=== PATIENT | female | born 1995 | race Caucasian/White ===

== ENCOUNTER 2022-02-04 15:13 | Outpatient (CLI) | payer BC, SELFPAY | END 2022-02-04 15:14 | disposition home or self-care (01) | LOC: NFLDREF 15:15 | PROVIDERS: PCP Family Medicine; Visit Provider Family Medicine | DX: Z01.419 Encounter for gynecological examination (general) (routine) without abnormal findings (principal) | CPT/HCPCS: 88174 ==

== ENCOUNTER 2022-02-14 17:14 | Outpatient (CLI) | payer BC, SELFPAY ==
--- OUTSIDE RECORDS SUMMARY | 2022-02-14 17:18 | XMS_ITS | Clinical Summary ---
:1995 Author Organization [facility] Address [address] [place] [address] Care Team Providers Name Role Phone Unavailable Primary Care Provider Unavailable Source Comments Patient records contain information from all sites at [facility]. For routine questions regarding patient records, call [phone] during business hours, M-F 8:00 AM - 5:00 PM Central Time. Record requests for emergency care only can be directed to [phone] at any time.[facility] Social History Tobacco Use Types Packs/Day Years Used Date Smoking Tobacco: Never Sex Assigned at Date Recorded Not on file Last Filed Vital Signs Vital Sign Reading Time Taken Comments Blood Pressure 118/66 01/02/2016 11:36 AM CDT Pulse 80 01/02/2016 11:36 AM CDT Temperature - - Respiratory Rate - - Oxygen Saturation - - Inhaled Oxygen Concentration - - Weight 51.8 kg (114 lb 3.2 oz) 01/25/2015 10:59 AM CDT Height - - Body Mass Index - - Plan of Treatment Health Maintenance Due Date Last Done Comments Cervical Cancer Screening 1997 Chlamydia and Gonorrhea 1997 Screening HIV Screening 1997 Hepatitis C Screening 1997 DTaP,Tdap,and Td Vaccines 09/11/2019 09/10/2009, 02/05/2003 , (7 - Td or Tdap) 12/27/1999, Additional history exists COVID-19 Vaccine (3 - 03/04/2021 10/02/2020, 09/11/2020 Booster for Pfizer series) Depression Screening 06/26/2021 (Annual PHQ-2) Influenza Vaccine (#1) 2022 Hepatitis B Vaccines Completed 06/09/1998, 1997, 1997 HPV Vaccines Completed 09/20/2011, 06/09/2011, 02/10/2010 Pneumococcal vaccine (0-64 Aged Out No lo nger eligible years) based on patient 's age to complete this topic Insurance Payer Benefit Plan Subscriber ID Effective Dates Phone Address Type / Group KRISTYN [facility] [id number] 2017-Stefany [phone] [address] [address] PPO [facility] [address] [place] [address]
--- OUTSIDE RECORDS SUMMARY | 2022-02-14 17:18 | XMS_ITS | Encounter Summary ---
:1995 Author Organization [facility] Address [address] [place] [address] Care Team Providers Name Role Phone Unavailable Primary Care Provider Unavailable Encounter Details Date Type Department Care Team Description 01/02/2016 Hospital Encounter HX [facility] Gama Lee APRN, C.N.P., ANTONIO, R.N. Social History Tobacco Use Types Packs/Day Years Used Date Smoking Tobacco: Never Assessed Sex Assigned at Date Recorded Not on file documented as of this encounter Last Filed Vital Signs Vital Sign Reading Time Taken Comments Blood Pressure 118/66 01/02/2016 11:36 AM CDT Pulse 80 01/02/2016 11:36 AM CDT Temperature - - Respiratory Rate - - Oxygen Saturation - - Inhaled Oxygen Concentration - - Weight - - Height - - Body Mass Index - - documented in this encounter Progress Notes Gama Lee APRN, C.N.P. - 01/02/2016 11:10 AM CDT [id number] CHIEF COMPLAINT/REASON FOR VISIT Possible bladder infection. HISTORY OF PRESENT ILLNESS Zuhair is an 20-year-old female who comes in today with a possible bladder infection. She is noticing some blood in her urine even with a tampon in. She is having withdrawal bleeding from her oral contraceptives at the current time. She is having some burning, frequency and urgency when she urinates.Her symptoms started 2 to 3 days ago. She has not used any yeaj-edj-btvryex medications for relief of her symptoms. She has been trying to drink a lot a water and cranberry juice. She has had no new sexual partners. Denies any vaginal itching. She denies any abdominal pain or any back pain. She does take her control pills exactly as prescribed. She has not missed any days. PAST MEDICAL/SURGICAL HISTORY She is healthy. MEDICATIONS Oral contraceptives. Zyrtec. ALLERGIES Environmental. PHYSICAL EXAMINATION VITAL SIGNS: Blood pressure 118/66, pulse 80, respirations 16, temperature 37.8 degrees centigrade, respirations 16. GENERAL: Zuhair is a well-developed, well-nourished, well-hydrated female, who appears to be in no acute distress. RESPIRATORY: Lungs clear to auscultation in all logan without wheezing or rales. Respirations appear to be easy and nonlabored. CARDIAC: Heart regular rate and rhythm without murmur, gallop, or rub. GI: Abdomen is soft, round, and nontender. Bowel sounds present and active in all 4 quadrants. Thereis no suprapubic tenderness and no CVA tenderness bilaterally. DIAGNOSTIC TESTS: Included a urinalysis which was positive for a urinary tract infection. IMPRESSION/REPORT/PLAN Urinary tract infection. PLAN: Cipro 500 mg twice a day for 5 days. Risks, benefits, and side effects were reviewed with her.She thinks 1 time when she took PhosLo she had quite a bit of nausea with some vomiting. I advised 8to 10 glasses of water during the days of treatment as well and if she is not feeling significantly better within the next few days, she should come back in for further evaluation and management unlessshe develops worsening symptoms in the meantime. She verbalized understanding and agreement of plan and will follow up as needed. Gama Lee APRN, C.N.P./pos Electronically Signed By: GAMA LEE ASSISTANT STORE MANAGER TRAINEE On: 01/04/2016 02:55 PM Source: [facility] MHSDOLBEYNONRADSYS Document Id: [id number] documented in this encounter Procedure Notes Lance Moore CLizethMSid - 01/02/2016 11:27 AM CDT Urine Dipstick Urine Dipstick Entered On: 01/02/2016 11:29 CDT Performed On: 01/02/2016 11:27 CDT by BAYLIS, LANCE E Urine Dipstick UA Color POC : Yellow UA Appear POC : Cloudy UA Leuk POC : 2+ Moderate UA Nitrite POC : Negative UA Urobilinogen POC : 0.2 mg/dl UA Protein POC : 1+ (30 mg/dl) UA pH POC : 8.0 UA Blood POC : 2+ MODERATE UA Spec Grav POC : 1.015 UA Ketones POC : Negative UA Bili POC : Negative UA Glucose POC : Negative Test Strip Lot # : [id number] Test Strip Expiration Date : 12/23/2016 LANCE MOORE - 01/02/2016 11:27 CDT [facility] [employer] Document Id: [id number] CDT!16 documented in this encounter Miscellaneous Notes Miscellaneous - Gama Lee APRN, C.N.P. - 01/02/2016 11:43 AM CDT Ambulatory Patient Summary Express Care - [facility] [address] [place], [place] [id number] Visit Information Name: ZUHAIR SIN [facility] Number: [id number] Current Date: 01/02/2016 11:43:46 Physicians Attending Provider: GAMA LEE CNP Primary Care Provider: PCP, ADAN ZUHAIR SIN has been given the following list of follow-up instructions, medication list,and patient education materials: Follow-up Instructions Your Medications Here is a list of your medications. It is important to take your medications as directed. Use a pillbox or chart to help remind you to take your medications. Please let your doctor or nurse know if you have problems taking your medications. Medication/Strength How to Take Indications/Special Instructions/Comments/Notes for Patient Medication Changes/Routing cetirizine (ZyrTEC) Oral, once a day PRN allergies ciprofloxacin (Cipro 500 mg oral tablet) 1 Tablet(s), Oral, two times a day x 5 day(s) bladder [facility] [address] [place] [address] norgestimate-ethinyl estradiol (Mononessa) 1 Tablet(s), Oral, once a day Stop Taking the Following Medications: Medication list as of 01-02-16 11:43 Attention: If you have any medications at home that are not on this list, DO NOT take them until youcontact your provider for clarification. Give a copy of your medication list to your primary care provider. Update your medication list any time medications or doses are changed and carry your medication list at all times in case of emergency. Electronically Signed By: GAMA LEE CNP Signed On:02-JAN-2016 11:43:42 Your Allergies & Intolerances Substance Reaction Symptoms Category Comments No Known Medication Allergies Drug Other Environmental congestion, coughing, sneezing Environment Your Problem List Problem Status Onset Comments No Problems found Your Upcoming Appointments Date Time Location Provider No Appointments found Attention: Contact your local Clinic if further appointment detail needed. Consider Using Patient Online Services Patient Online Services is a secure online and Mobile application that lets you: ?? View lab and test results ?? View portions of your medical record including clinical notes, immunizations and discharge summaries ?? Request an appointment or medication refill ?? Review your appointment schedule ?? Send secure messages to your care team Its easy to create an account if you dont have one. Go to [email or web address] and click on Create Your Account. Then, follow the directions to complete the online form. Youll be asked for your [facility] number which you can find at the top of this document. Your Goals/Additional instructions: Source: [facility] POWERCHART Document Id: [id number] Miscellaneous - Gama Lee APRN, C.N.P. - 01/02/2016 11:43 AM CDT Ambulatory Discharge Medication List Express Care - [address] [id number] Visit Information Name: ZUHAIR SIN [facility] Number: [id number] Visit Date: 01/02/2016 11:43:46 Attending Provider: GAMA LEE CNP Primary Care Provider: PCP, ZUHAIR WELLS MICHELLE has been given the following list of medications: Your Medications It is important to take your medications as directed. Use a pill box or chart to help remind you to take your medications. Please let your doctor or nurse know if you have problems taking your medications. Medication/Strength How to Take Indications/Special Instructions/Comments/Notes for Patient Medication Changes/Routing cetirizine (ZyrTEC) Oral, once a day PRN allergies ciprofloxacin (Cipro 500 mg oral tablet) 1 Tablet(s), Oral, two times a day x 5 day(s) bladder [facility] [address] [place], [place] [id number] norgestimate-ethinyl estradiol (Mononessa) 1 Tablet(s), Oral, once a day Stop Taking the Following Medications: Medication list as of 01-02-16 11:43 Attention: If you have any medications at home that are not on this list, DO NOT take them until youcontact your provider for clarification. Give a copy of your medication list to your primary care provider. Update your medication list any time medications or doses are changed and carry your medication list at all times in case of emergency. Electronically Signed By: GAMA LEE CNP Signed On:02-JAN-2016 11:43:42 Additional Information: Yes - . Source: [facility] POWERCHART Document Id: [id number] Miscellaneous - Lance Moore, C.M.A. - 01/02/2016 11:36 AM CDT Adult System Consultant Intake/History Adult System Consultant Intake/History Entered On: 01/02/2016 11:40 CDT Performed On: 01/02/2016 11:36 CDT by LANCE MOORE Intake Chief Complaint : peed blood, even with a tampon in; pain when she urinates, frequecy, urgency Onset of Symptoms : 2-3 days ago Ambulatory Intake Additional Information : no OTC meds today Temperature Core : 37.8 DegC(Converted to: 100.0 DegF) Peripheral Pulse Rate : 80 /min Systolic Blood Pressure : 118 mmHg Diastolic Blood Pressure : 66 mmHg NIBP Mean : 83 mmHg BP Location : Left upper extremity Blood Pressure Cuff Size : Regular SpO2 : 98 % Oxygen Therapy : Room air LANCE MOORE - 01/02/2016 11:36 CDT General Info Information Given By : Patient Preferred Communication Mode : Verbal Languages : Macanese Is Patient Female and 13-50 no hysterectomy : Yes Status : Patient denies Are you ? : No LANCE MOORE - 01/02/2016 11:36 CDT Subjective Pain Symptoms : Yes LANCE MOORE - 01/02/2016 11:36 CDT Pain Scale Pain Scale Verbal 0-10 : Open LANCE MOORE - 01/02/2016 11:36 CDT Pain Pain Assessment Grid Pain 1 Location : Bladder LANCE MOORE - 01/02/2016 11:36 CDT Dependent Habits Exposure to Tobacco Smoke : Lives with someone who smokes Smoking Status : Never smoker Tobacco 2A : No Tobacco Use/Currently Using : No Tobacco Use/Last 30 Days : No Tobacco Use/Last 12 months : No LANCE MOORE - 01/02/2016 11:36 CDT Source: [facility] Document Id: [id number] CDT!36 documented in this encounter Plan of Treatment Not on filedocumented as of this encounter Procedures Procedure Name Priority Date/Time Associated Diagnosis Comme nts BACTERIAL CULTURE, Routine 01/02/2016 11:29 AM Re sults for this AEROBIC, URINE CDT procedure are in the results section. POCT KETONE, URINE Routine 01/02/2016 11:27 AM Re sults for this CDT procedure are i n the results section. documented in this encounter Results (ABNORMAL) Bacterial Culture, Aerobic, Urine (01/02/2016 11:29 AM CDT) Analysis Performed At Patho logist Time Signature Bacterial EC <=2 POWERCHART Culture, (POSITIVE) Aerobic, Urine HXPre EC POWERCHART Comment: >100,000 cfu/mL Escherichia col i HXFinal EC POWERCHART Comment: >100,000 cfu/mL Escherichia col i Specimen (Source) Anatomical Collection Method Collection Time Re ceived Time Location / / Volume Laterality Urine, First 01/02/2016 11:29 Voided AM CDT Organism Antibiotic Method Susceptibility Escherichia coli Ampicillin SUSCEPTIBILITY, SAE <=2: Suscep tible (MCG/ML) Escherichia coli Ampicillin + Sulbactam SUSCEPTIBILITY, SAE <=2: Susceptible (MCG/ML) Escherichia coli Aztreonam SUSCEPTIBILITY, SAE <=1: Suscep tible (MCG/ML) Escherichia coli Cefazolin SUSCEPTIBILITY, SAE <=4: Suscep tible (MCG/ML) Escherichia coli Cefepime SUSCEPTIBILITY, SAE <=1: Suscep tible (MCG/ML) Escherichia coli Ceftazidime SUSCEPTIBILITY, SAE <=1: Suscep tible (MCG/ML) Escherichia coli Ceftriaxone SUSCEPTIBILITY, SAE <=1: Suscep tible (MCG/ML) Escherichia coli ESBL Confirmation Test SUSCEPTIBILITY, SAE Neg: Negative (MCG/ML) Escherichia coli Ertapenem SUSCEPTIBILITY, SAE <=0.5: Susc eptible (MCG/ML) Escherichia coli Gentamicin SUSCEPTIBILITY, SAE <=1: Suscep tible (MCG/ML) Escherichia coli Levofloxacin SUSCEPTIBILITY, SAE <=0.12: Vania ceptible (MCG/ML) Escherichia coli Meropenem SUSCEPTIBILITY, SAE <=0.25: Vania ceptible (MCG/ML) Escherichia coli Nitrofurantoin SUSCEPTIBILITY, SAE <=16: Susce ptible (MCG/ML) Escherichia coli Piperacillin + Tazobactam SUSCEPTIBILITY, SAE < =4: Susceptible (MCG/ML) Escherichia coli Trimethoprim + SUSCEPTIBILITY, SAE <=20: Susce ptible Sulfamethoxazole (MCG/ML) Escherichia coli Tobramycin SUSCEPTIBILITY, SAE <=1: Suscep tible (MCG/ML) Gama Lee APRN, C.N.P., [place], R.N. LAB MICROBIOLOGY - GENERAL ORDERABLES Performing Organization Address City/State/ZIP Code Phon e Number POWERCHART Ketone, Urine, POCT (01/02/2016 11:27 AM CDT) [facility] Method Time Signature Color Yellow POWERCHART Appearance Cloudy POWERCHART Leukocytes, 2+ Moderate POWERCHART POCT, U Nitrites, Negative POWERCHART POCT, U Urobilinogen, 0.2 mg/dl POWERCHART POCT, Urine Protein, POCT, 1+ (30 POWERCHART U mg/dl) pH, POCT, 8.0 5.0 - 9.0 POWERCHART Urine Blood, POCT, U 2+ MODERATE POWERCHART Specific 1.015 1.000 - POWERCHART Naylor, POCT, 1.030 U Ketone, POCT, Negative POWERCHART U Bilirubin, Negative POWERCHART POCT, U Glucose, POCT, Negative POWERCHART U Specimen (Source) Anatomical Collection Method Collection Time Re ceived Time Location / / Volume Laterality 01/02/2016 11:27 AM CDT Gama Lee APRN, C.N.P., [place], R.N. LAB POCT ORDERABL ES-MANUAL Performing Organization Address City/State/ZIP Code Phon e Number POWERCHART documented in this encounter Visit Diagnoses Not on filedocumented in this encounter
--- OUTSIDE RECORDS SUMMARY | 2022-02-14 17:18 | XMS_ITS | Encounter Summary ---
:1995 Author Organization [facility] Address [address] [place] [address] Care Team Providers Name Role Phone Unavailable Primary Care Provider Unavailable Encounter Details Date Type Department Care Team Description 10/22/2020 Orders Only [facility] PCP [facility] Candido Delacruz Jr., M.D. [facility] Santhosh Nelson MD [phone] (Wo rk) Social History Tobacco Use Types Packs/Day Years Used Date Smoking Tobacco: Never Sex Assigned at Date Recorded Not on file documented as of this encounter Plan of Treatment Not on filedocumented as of this encounter Visit Diagnoses Not on filedocumented in this encounter
--- OUTSIDE RECORDS SUMMARY | 2022-02-14 17:18 | XMS_ITS | Encounter Summary ---
:1995 Author Organization [facility] Address [address] [place] [address] Care Team Providers Name Role Phone Unavailable Primary Care Provider Unavailable Encounter Details Date Type Department Care Team Description 04/16/2020 Clinical Communication Division of [facility], , RLizethNLizeth [place], in [phone] [place], [place] (Work) [address] [place] [address] Social History Tobacco Use Types Packs/Day Years Used Date Smoking Tobacco: Never Sex Assigned at Date Recorded Not on file documented as of this encounter Plan of Treatment Not on filedocumented as of this encounter Visit Diagnoses Not on filedocumented in this encounter Additional Health Concerns Infection Onset Date Last Indicated Resolved Time COVID19 Pending 04/16/2020 04/16/2020 04/16/2020 10:54 PM CDT documented as of this encounter
--- OUTSIDE RECORDS SUMMARY | 2022-02-14 17:18 | XMS_ITS | Encounter Summary ---
:1995 Author Organization [facility] Address [address] [place] [address] Care Team Providers Name Role Phone Unavailable Primary Care Provider Unavailable Reason for Visit Reason Comments COVID Inquiry Encounter Details Date Type Department Care Team Description 05/14/2020 Clinical Communication Department of Spine WILY KellyID Inquiry in [facility] [address] [place] [address] Social History Tobacco Use Types Packs/Day Years Used Date Smoking Tobacco: Never Sex Assigned at Date Recorded Not on file documented as of this encounter Miscellaneous Notes Telephone Encounter - Alejandro Walsh - 05/14/2020 9:55 AM CST Plan: Endpoint recommendation: Testing indicated, sent patient to [facility] located at [address] [place] [address]. When you arrive in the parking lot, using your camera smartphone scan the QR code on the sign and fill out the online form. If you do not have a smartphone or working camera, please ring the doorbell outside the building for service. Testing hours are M-F 9 am to 4 pm and Sat-Sun 9 am to 12:30pm. and Please avoid using public transportation per CDC recommendation. If you do not have personaltransportation please self-quarantine until a personal transportation option is available. *Reminder if sending patient for testing in [facility] or [facility], an email notification is required. OLL ACCOUNTING CLERK documented in this encounter Plan of Treatment Not on filedocumented as of this encounter Visit Diagnoses Not on filedocumented in this encounter Additional Health Concerns Infection Onset Date Last Indicated Resolved Time COVID19 Pending 05/14/2020 05/14/2020 05/14/2020 11:31 PM PAYROLL ACCOUNTING CLERK documented as of this encounter
--- OUTSIDE RECORDS SUMMARY | 2022-02-14 17:18 | XMS_ITS | Encounter Summary ---
:1995 Author Organization [facility] Address [address] [place] [address] Care Team Providers Name Role Phone Unavailable Primary Care Provider Unavailable Encounter Details Date Type Department Care Team Description 01/02/2016 Hospital Encounter HX NO MAPPING Bev Lee, COMPUTER SYSTEMS ANALYST, C.N.P., ANTONIO, R.N. Social History Tobacco Use Types Packs/Day Years Used Date Smoking Tobacco: Never Assessed Sex Assigned at Date Recorded Not on file documented as of this encounter Miscellaneous Notes Miscellaneous - Conversion, Historical Provider Ser - 01/02/2016 11:59 PM CDT Coding Summary-Paper Based CODING DATE: 01/14/2016 FINAL [facility] STATUS: * Discharged to Home or Self Care PAYOR: [employer] ADMIT DX: REASON FOR VISIT DX: FINAL DX: PRINCIPAL: R30.0 Dysuria SECONDARY: PROCEDURES DOCTOR NAME DATE NOTE: The code number assigned matches the documented diagnosis and / or procedure in the patient's chart. However, the narrative phrase printed from the coding software may appear abbreviated, or result in slightly different terminology. Coded By: RUTH ANN ESCOBAR Date Saved: 01/14/2016 08:10 am Source: [facility] Document Id: [id number] documented in this encounter Plan of Treatment Not on filedocumented as of this encounter Visit Diagnoses Not on filedocumented in this encounter
--- OUTSIDE RECORDS SUMMARY | 2022-02-14 17:18 | XMS_ITS | Encounter Summary ---
:1995 Author Organization [facility] Address [address] [place] [address] Care Team Providers Name Role Phone Unavailable Primary Care Provider Unavailable Encounter Details Date Type Department Care Team Description 12/25/2014 Hospital Encounter [facility] Crow Harris APRN, C.N.P. [address] [place] [phone] (Wo rk) Social History Tobacco Use Types Packs/Day Years Used Date Smoking Tobacco: Never Assessed Sex Assigned at Date Recorded Not on file documented as of this encounter Last Filed Vital Signs Vital Sign Reading Time Taken Comments Blood Pressure 86/46 12/25/2014 6:18 PM CDT Pulse 77 12/25/2014 6:18 PM CDT Temperature - - Respiratory Rate - - Oxygen Saturation - - Inhaled Oxygen Concentration - - Weight - - Height - - Body Mass Index - - documented in this encounter Progress Notes Brigette Harris APRN, C.N.P. - 12/25/2014 6:16 PM CDT [id number] CHIEF COMPLAINT/REASON FOR VISIT Ear pain. HISTORY OF PRESENT ILLNESS This pleasant 19-year-old female presents to clinic today with her mother who reports onset of rightear discomfort over the past 2 to 3 days. Slightly dizzy, slightly nauseous. The ear is tender with pressing on the tragus. No recent swimming. No cough, cold or rhinitis. TREATMENT: No treatment for her current symptoms. MEDICATIONS Oral contraceptive pills. ALLERGIES No known diagnosed medication allergies. SYSTEMS REVIEW No fever, no chills. No vomiting, no diarrhea. No rash. PAST MEDICAL/SURGICAL HISTORY Ear infections in childhood, none recently. SOCIAL HISTORY No recent exposure to swimming. No known injury to that right ear. VITAL SIGNS Temperature is 37.6, pulse is 77, blood pressure is 86/46, O2 sat is 97%. PHYSICAL EXAMINATION GENERAL: A pleasant 19-year-old female, no acute distress. SKIN: Generally is warm, dry and intact. Low-grade fever. 37.6 degrees Celsius. HEENT: Head is normocephalic. Eyes: Conjunctivae are clear bilaterally. Pupils are equal, reactive to light. Ears: Left tragus is not sensitive. Left canal and left tympanic membrane are intact. Right ear: Right tragus is sensitive to pressure. The canal is clear. The tympanic membrane is clear. On the central point of the tragus it is noted to be of bright pink with cream-colored pustules forming, coming to a head. No discharge is noted. Throat: [place]. LYMPH: Neck is supple. No lymphadenopathy palpated. There is some tenderness on the right postauricular node area without nodule forming. LUNGS: Clear anterior bilaterally. EXTREMITIES: Full range of motion, upper and lower extremities. MENTAL STATUS: Alert, oriented, pleasant. IMPRESSION/REPORT/PLAN Folliculitis. PLAN: Symptomatic treatment with cleansing thoroughly twice daily, topical antibiotic ointment as desires. Follow up if symptoms would persist or worsen. [facility] in the future. Patient discharged in stable condition with her mother. Mary Ellen Harris, C.N.P./pos Electronically Signed By: BRIGETTE HARRIS MOTORCYCLE RIDING INSTRUCTOR On: 12/27/2014 10:15 AM Source: [facility] MHSDOLBEYNONRADSYS Document Id: [id number] documented in this encounter Nursing Notes Brigette Harris APRN, C.N.P. - 12/25/2014 8:19 PM CDT Ambulatory Patient Education The following Patient Education Materials have been given to the patient: Patient Education Materials: Ambulatory FOLLICULITIS Ambulatory Folliculitis Folliculitis is an inflammation of the hair follicles (where the hair comes out of the skin). It is most often caused by infection with bacteria such as staph. Folliculitis usually looks like small white pimples in hairy areas of the skin. Severe cases may cause permanent hair loss and scarring. The condition is most often triggered by friction against the skin due to tight- fitting clothing. Ingrown hairs on the face of men are another cause. One type of folliculitis occurs after soaking in a hot tub when the water is contaminated with bacteria. Simple folliculitis usually clears by itself in a few days. Folliculitis that does not go away or comes back may need medical treatment. Oral and topical antibiotics may be used. Home care The following will help you care for folliculitis at home: ?? Wash the area with soap and water when you bathe, as usual. ?? Unless another medicine was prescribed, you can apply a topical antibiotic cream twice a day. Follow-up care Follow up with your doctor as advised by our staff. When to seek medical care Get prompt medical attention if any of the following occur: ?? Rash lasts longer than three days ?? Rash changes appearance or spreads ?? Abscess (boil) forms with local swelling, tenderness, or fluid drainage ?? Fever of 100.4??F (38??C) or higher, or as directed by your health care provider ?? [id number] [place] [address]. All rights reserved. This information is not intended as a substitute for professional medical care. Always follow your healthcare professional's instructions. Source: [facility] QuellanCHART Document Id: [id number] Brigette Harris APRN, C.N.P. - 12/25/2014 8:19 PM CDT Ambulatory Patient Education The following Patient Education Materials have been given to the patient: Patient Education Materials: Source: [facility] POWERCHART Document Id: [id number] documented in this encounter Miscellaneous Notes Miscellaneous - Lety Tomas C.M.A. - 12/25/2014 6:18 PM CDT Pediatric Wheel Polisher Intake/History Pediatric Wheel Polisher Intake/History Entered On: 12/25/2014 18:22 CDT Performed On: 12/25/2014 18:18 CDT by LETY TOMAS Intake Chief Complaint : Right ear ache; swollen, aches; ear aches when pt swallows; eust tube aches, and tragus. Onset of Symptoms : 2-3 days ago Temperature Core : 37.6 DegC(Converted to: 99.7 DegF) Peripheral Pulse Rate : 77 /min Systolic Blood Pressure : 86 mmHg (<LLOW) Diastolic Blood Pressure : 46 mmHg (<LLOW) NIBP Mean : 59 mmHg SpO2 : 97 % LETY TOMAS - 12/25/2014 18:19 CDT General Info Languages : Salvadorean Is Patient Female and 13-50 no hysterectomy : Yes Status : Patient denies Are you ? : No LETY TOMAS - 12/25/2014 18:19 CDT Subjective Pain Symptoms : Yes LETY TOMAS - 12/25/2014 18:19 CDT Pain Scale Pain Scale Verbal 0-10 : Open LETY TOMAS 12/25/2014 18:19 CDT Pain Pain Assessment Grid Pain 1 Location : Ear Laterality : Right LETY TOMAS - 12/25/2014 18:19 CDT Dependent Habits Tobacco Use/Currently Using : No Exposure to Tobacco Smoke : Care provider denies smoking in home Smoking Status : Never smoker LETY TOMAS - 12/25/2014 18:19 CDT Source: [facility] POWERCHART Document Id: [id number] CDT!28 documented in this encounter Plan of Treatment Not on filedocumented as of this encounter Visit Diagnoses Not on filedocumented in this encounter
--- OUTSIDE RECORDS SUMMARY | 2022-02-14 17:18 | XMS_ITS | Encounter Summary ---
:1995 Author Organization [facility] Address [address] [place] [address] Care Team Providers Name Role Phone Unavailable Primary Care Provider Unavailable Encounter Details Date Type Department Care Team Description 01/25/2015 Hospital Encounter [facility] Crow Harris APRN, C.N.P. [address] [place] [phone] (Wo rk) Social History Tobacco Use Types Packs/Day Years Used Date Smoking Tobacco: Never Assessed Sex Assigned at Date Recorded Not on file documented as of this encounter Last Filed Vital Signs Vital Sign Reading Time Taken Comments Blood Pressure - - Pulse 74 01/25/2015 10:59 AM CDT Temperature - - Respiratory Rate - - Oxygen Saturation - - Inhaled Oxygen Concentration - - Weight 51.8 kg (114 lb 3.2 oz) 01/25/2015 10:59 AM CDT Height - - Body Mass Index - - documented in this encounter Progress Notes Brigette Harris APRN, C.N.P. - 01/25/2015 10:07 AM CDT [id number] CHIEF COMPLAINT/REASON FOR VISIT Discomfort with urination. HISTORY OF PRESENT ILLNESS This pleasant 19-year-old female presents to clinic today with onset of intermittent discomfort overthe past 1 to 2 weeks with urination. Now has noted to have increased frequency, urgency with urination, as well as a stinging sensation which kay with urination. She also is having lower abdominal di scomfort intermittently at rest. Presents today for further evaluation of possible urinary tract infection. MEDICATIONS Cranberry juice and increasing water, green tea, and oral contraceptive pill. ALLERGIES No known diagnosed medication allergies. SYSTEMS REVIEW No fever. No chills. No nausea. No vomiting. No diarrhea. No back pain. No rash. PAST MEDICAL/SURGICAL HISTORY Urinary tract infection in the past. None recently. SOCIAL HISTORY Will be in the 12th grade at [employer]. IMMUNIZATIONS: Are reported as up to date. VITAL SIGNS Temperature is 37, pulse is 74, O2 sats 99%, and actual weight is 51.8 kg. PHYSICAL EXAMINATION GENERAL: Reveals a pleasant, 19-year-old female, no acute distress. SKIN: Generally is warm, dry, and intact. Afebrile at 37 degrees Celsius. HEENT: Head is normocephalic. Speech is clear and understandable. Ears are dull and intact bilaterally. Throat posteriorly is pink. ABDOMEN: Bowel sounds are present all 4 quadrants. No hepatosplenomegaly. Slight discomfort in the suprapubic region to palpation. BACK: No costovertebral angle tenderness to palpation bilaterally. EXTREMITIES: Full range of motion upper and lower extremities. No hesitation with changing positionsfrom the chair to the exam table. MENTAL STATUS: Alert, oriented. DIAGNOSTICS: Urinalysis reveals specific gravity is 1.015, pH is 7.0, protein is negative, ketones negative, bilirubin is negative, urobilinogen is 0.2 mg/dL, blood is 2+ moderate, nitrites are negative, leukocytes 3+ large, appearance is cloudy, glucose is negative. IMPRESSION/REPORT/PLAN Urinary tract infection. PLAN: Bactrim double-strength 1 tab by mouth twice daily for 3 days. Informed the patient and her mother we would call only if the culture would indicate a need for change in treatment plan. Okay to call the patient's cellphone at [phone]. Preferred pharmacy is [facility]. Continue water and cranberry juice supplementation. Follow up if symptoms would persist or worsen. [facility] to [facility] as desires in the future for minor ailments. The patient is discharged in stable condition accompanied with her mother. The patient is given written information outlining the details of today's visit.Opportunity for questions provided. Yoshi Ivory.N.P./pos Electronically Signed By: BRIGETTE HARRIS NP On: 01/26/2015 08:23 PM [facility] Document Id: [id number] documented in this encounter Procedure Notes Perla Moore C.M.A. - 01/25/2015 10:15 AM CDT Urine Dipstick Urine Dipstick Entered On: 01/25/2015 10:16 CDT Performed On: 01/25/2015 10:15 CDT by PERLA MOORE Urine Dipstick UA Color POC : Colorless UA Appear POC : Cloudy UA Leuk POC : 3+ Large UA Nitrite POC : Negative UA Urobilinogen POC : 0.2 mg/dl UA Protein POC : Negative UA pH POC : 7.0 UA Blood POC : 2+ MODERATE UA Spec Grav POC : 1.015 UA Ketones POC : Negative UA Bili POC : Negative UA Glucose POC : Negative Test Strip Lot # : [id number] Test Strip Expiration Date : 12/24/2015 PERLA MOORE - 01/25/2015 10:15 CDT Source: [facility] POWERCHART Document Id: [id number] CDT!16 documented in this encounter Nursing Notes Brigette Harris APRN, C.N.P. - 01/25/2015 11:10 AM CDT Ambulatory Patient Education The following Patient Education Materials have been given to the patient: Patient Education Materials: ED/Trauma Urinary Tract Infections in Women ED/Trauma Urinary Tract Infections in Women Urinary tract infections (UTIs) are most often caused by bacteria (germs). These bacteria enter the urinary tract. The bacteria may come from outside the body. Or they may travel from the skin outside the rectum or vagina into the urethra. Female anatomy makes it easier for bacteria from the bowel to enter a womans urinary tract, which is the most common source of UTI. This means women develop UTIs more often than men. Pain in or around the urinary tract is a common UTI symptom. But the only way to know for sure if you have a UTI for the doctor to test your urine. The two tests that may be done arethe urinalysis and urine culture. Three Types of UTIs ?? Cystitis: A bladder infection (cystitis) is the most common UTI in women. You may have urgent or frequent urination. You may also have pain, burning when you urinate, and bloody urine. ?? Urethritis: This is an inflamed urethra, which is the tube that carries urine from the bladder tooutside the body. You may have lower stomach or back pain. You may also have urgent or frequent urination. ?? Pyelonephritis: This is a kidney infection. If not treated, it can be serious and damage your kidneys. In severe cases, you may be hospitalized. You may have a fever and upper back pain. Medications to Treat a UTI Most UTIs are treated with antibiotics. These kill the bacteria. The length of time you need to takethem depends on the type of infection. It may be as short as 3 days. If you have repeated UTIs, a low-dose antibiotic may be needed for several months. Take antibiotics exactly as directed. Dont stop taking them until all of the medication is gone. If you stop taking the antibiotic too soon, the infection may not go away, and you may develop a resistance to the antibiotic. This can make it much harder to treat. Lifestyle Changes to Treat and Prevent UTIs The lifestyle changes below will help get rid of your UTI. They may also help prevent future UTIs. ?? Drink plenty of fluids. This includes water, juice, or other caffeine-free drinks. Fluids help flush bacteria out of your body. ?? Empty your bladder. Always empty your bladder when you feel the urge to urinate. And always urinate before going to sleep. Urine that stays in your bladder can lead to infection. Try to urinate before and after sex as well. ?? Practice good personal hygiene. Wipe yourself from front to back after using the toilet. This helps keep bacteria from getting into the urethra. ?? Use condoms during sex. These help prevent UTIs caused by sexually transmitted bacteria. Also, avoid using spermicides during sex. These can increase the risk of UTIs. Choose other forms of control instead. For women who tend to get UTIs after sex, a low-dose of a preventive antibiotic may beused. Be sure to discuss this option with your health care provider. ?? Follow up with your health care provider as directed. He or she may test to make sure the infection has cleared. If necessary, additional treatment may be started. ?? [id number] Anna Ugarte, [address] [place] [address]. All rights reserved. This information is not intended as a substitute for professional medical care. Always follow your healthcare professional's instructions. This document has images extracted. Please consider using [employer] for all your patient education needs. Source: [facility] Document Id: [id number] Brigette Harris APRN, C.N.P. - 01/25/2015 11:10 AM CDT Ambulatory Patient Education The following Patient Education Materials have been given to the patient: Patient Education Materials: Source: [employer] Document Id: [id number] documented in this encounter Miscellaneous Notes Miscellaneous - Perla Moore C.M.A. - 01/25/2015 10:59 AM CDT Pediatric Dish Washer Intake/History Pediatric Dish Washer Intake/History Entered On: 01/25/2015 11:02 CDT Performed On: 01/25/2015 10:59 CDT by PERLA MOORE Intake Chief Complaint : burning when she urinates, frequency, urgency Onset of Symptoms : 1-2 weeks ago Ambulatory Intake Additional Information : tried a lot of water and cranberry juice Temperature Core : 37.0 DegC(Converted to: 98.6 DegF) Peripheral Pulse Rate : 74 /min SpO2 : 99 % Actual Weight : 51.8 kg(Converted to: 114 lb 3 oz) Dosing Weight Clinic : 51.8 kg PERLA MOORE - 01/25/2015 10:59 CDT General Info Information Given By : Mother Preferred Communication Mode : Verbal Languages : Frisian Is Patient Female and 13-50 no hysterectomy : Yes Status : Patient denies Are you ? : No PERLA MOORE Aravind - 01/25/2015 10:59 CDT Subjective Pain Symptoms : Yes PERLA MOORE Aravind - 01/25/2015 10:59 CDT Pain Scale Pain Scale Verbal 0-10 : Open PERLA MOORE Aravind - 01/25/2015 10:59 CDT Pain Pain Assessment Grid Pain 1 Location : Bladder PERLA MOORE Aravind - 01/25/2015 10:59 CDT Dependent Habits Tobacco Use/Currently Using : No Exposure to Tobacco Smoke : Care provider denies smoking in home Smoking Status : Never smoker PERLA MOORE Aravind - 01/25/2015 10:59 CDT Source: [facility] JootaCHART Document Id: [id number] CDT!29 documented in this encounter Plan of Treatment Not on filedocumented as of this encounter Procedures Procedure Name Priority Date/Time Associated Diagnosis Comme nts BACTERIAL CULTURE, Routine 01/25/2015 10:19 AM Re sults for this AEROBIC, URINE CDT procedure are in the results section. POCT KETONE, URINE Routine 01/25/2015 10:15 AM Re sults for this CDT procedure are i n the results section. documented in this encounter Results Bacterial Culture, Aerobic, Urine (01/25/2015 10:19 AM CDT) [facility] Method Time Signature Bacterial POWERCHART Culture, Aerobic, Urine [facility] Mixed deja. No POWERCHART further studies unless notified. [facility] POWERCHART Microbiology laboratory [phone]. Specimen (Source) Anatomical Collection Method Collection Time Re ceived Time Location / / Volume Laterality Urine, First 01/25/2015 10:19 Voided AM CDT Brigette Harris APRN, C.N.P. LAB MICROBIOLOGY - GENERAL ORDERABLES Performing Organization Address City/State/ZIP Code Phon e Number POWERCHART Ketone, Urine, POCT (01/25/2015 10:15 AM CDT) [facility] Method Time Signature Color Colorless POWERCHART Appearance Cloudy POWERCHART Leukocytes, 3+ Large POWERCHART POCT, U Nitrites, Negative POWERCHART POCT, U Urobilinogen, 0.2 mg/dl POWERCHART POCT, Urine Protein, POCT, Negative POWERCHART U pH, POCT, 7.0 5.0 - 9.0 POWERCHART Urine Blood, POCT, U 2+ MODERATE POWERCHART Specific 1.015 1.000 - POWERCHART [place], POCT, 1.030 U Ketone, POCT, Negative POWERCHART U Bilirubin, Negative POWERCHART POCT, U Glucose, POCT, Negative POWERCHART U Specimen (Source) Anatomical Collection Method Collection Time Re ceived Time Location / / Volume Laterality 01/25/2015 10:15 AM CDT Brigette Harirs APRN, C.N.P. LAB POCT ORDERABLES-MANUAL Performing Organization Address City/State/ZIP Code Phon e Number POWERCHART documented in this encounter Visit Diagnoses Not on filedocumented in this encounter
--- OUTSIDE RECORDS SUMMARY | 2022-02-14 17:18 | XMS_ITS | Encounter Summary ---
:1995 Author Organization [facility] Address [address] [place] [address] Care Team Providers Name Role Phone Unavailable Primary Care Provider Unavailable Reason for Visit Reason Onset Date Comments Outpatient COVID-19 Testing 04/16/2020 Encounter Details Date Type Department Care Team Description 04/16/2020 External Outreach Department of Jerman Finley [facility] D.[facility]. Dx) [place] [address] [facility] [address] [place] [phone] Social History Tobacco Use Types Packs/Day Years Used Date Smoking Tobacco: Never Sex Assigned at Date Recorded Not on file documented as of this encounter Progress Notes Ynes Haines R.N. - 04/16/2020 9:03 AM CDT Encounter created for the drive-through COVID-19 testing. documented in this encounter Plan of Treatment Not on filedocumented as of this encounter Procedures Procedure Name Priority Date/Time Associated Diagnosis Comme nts SARS CORONAVIRUS-2 Routine 04/16/2020 10:52 AM Infection Upper Results for this RNA, V CDT Respiratory procedure are i n the results section. documented in this encounter Results SARS Coronavirus-2 RNA, V Symptomatic (04/16/2020 10:52 AM CDT) [facility] Method Time Signature SARS-CoV-2 Swab, 04/16/2020 MKTO Specimen Nasopharynx 10:53 PM Source CDT SARS CoV-2 Undetected Undetected 04/16/2020 SABI RNA, TMA 10:53 PM CDT Comment: SARS-CoV-2 RNA absent. This result does not rule out COVID-19 in the patient, as the sensitivity of the test depends o n the timing of the specimen collection and the quality of the specim en. Result should be correlated with patient's history and clinical presentat ion. ----ADDITIONAL INFORMATION---- This test is performed using the Aptima SARS-CoV-2 assay ([employer] which has received Emergency Use Authori zation (EUA) by the U.S. Food and Drug Administration. Fact sheets for this Emergency Use Autho rization (EUA) assay can be found at the following links: For Healthcare Providers: https://www.[employer] a.gov/media/690629/download For Patients: https://www.fda.gov/media/ 097097/download Specimen Anatomical Collection Method Collection Time Receive d Time (Source) Location / / Volume Laterality Varies 04/16/2020 10:52 04/16/2020 3:18 (Nasopharynx) AM CDT PM CDT Maria Luisa Finley APRN C.N.P., D.N.P. LAB [facility] - GENERAL ORDERABLES Performing Organization Address City/State/ZIP Code Phon e Number [facility]- [address] [place] [address] [place] [address] [address] documented in this encounter Visit Diagnoses Diagnosis Infection Upper Respiratory - Primary documented in this encounter Additional Health Concerns Infection Onset Date Last Indicated Resolved Time COVID19 Pending 04/16/2020 04/16/2020 04/16/2020 10:54 PM CDT documented as of this encounter
--- OUTSIDE RECORDS SUMMARY | 2022-02-14 17:18 | XMS_ITS | Encounter Summary ---
:1995 Author Organization [facility] Address [address] [place] [address] Care Team Providers Name Role Phone Unavailable Primary Care Provider Unavailable Reason for Visit Reason Onset Date Comments Outpatient COVID-19 Testing 05/14/2020 Encounter Details Date Type Department Care Team Description 05/14/2020 External Outreach Department of [facility] Jesus, In [facility] Medicine in [facility], Respirato ry ([place], [place] C.N.P., D.N.P. Dx) [address] [facility] [address] [place] [address] [place], [place] [phone] [address] Social History Tobacco Use Types Packs/Day Years Used Date Smoking Tobacco: Never Sex Assigned at Date Recorded Not on file documented as of this encounter Progress Notes Virgen Cano R.N. - 05/14/2020 10:04 AM CST Encounter created for the drive-through COVID-19 testing. OLOGY TECHNOLOGIST documented in this encounter Plan of Treatment Not on filedocumented as of this encounter Procedures Procedure Name Priority Date/Time Associated Diagnosis Comme nts SARS CORONAVIRUS-2 Routine 05/14/2020 11:06 AM Infection Upper Results for this RNA, V NEUROLOGY TECHNOLOGIST Respiratory procedure are i n the results section. documented in this encounter Results SARS Coronavirus-2 RNA, V Symptomatic (05/14/2020 11:06 AM NEUROLOGY TECHNOLOGIST) [facility] Method Time Signature SARS-CoV-2 Swab, 05/14/2020 MKTO Specimen Nasopharynx 11:30 PM Source NEUROLOGY TECHNOLOGIST SARS CoV-2 Undetected Undetected 05/14/2020 SABI RNA, TMA 11:30 PM NEUROLOGY TECHNOLOGIST Comment: SARS-CoV-2 RNA absent. This result does not rule out COVID-19 in the patient, as the sensitivity of the test depends o n the timing of the specimen collection and the quality of the specim en. Result should be correlated with patient's history and clinical presentat ion. ----ADDITIONAL INFORMATION---- This test is performed using the Aptima SARS-CoV-2 assay ([employer] which has received Emergency Use Authori zation (EUA) by the U.S. Food and Drug Administration. Fact sheets for this Emergency Use Autho rization (EUA) assay can be found at the following links: For Healthcare Providers: https://www.[employer] a.gov/media/025543/download For Patients: https://www.fda.gov/media/ 708593/download Specimen Anatomical Collection Method Collection Time Receive d Time (Source) Location / / Volume Laterality Varies 05/14/2020 11:06 05/14/2020 5:43 (Nasopharynx) AM NEUROLOGY TECHNOLOGIST PM NEUROLOGY TECHNOLOGIST Yoshi Sanchez APRN.NJyotsna., D.N.P. LAB MICROBIOLOGY - GENERAL ORDERABLES Performing Organization Address City/State/ZIP Code Phon e Number [facility]- [address] [place] [address] [place] [address] [address] documented in this encounter Visit Diagnoses Diagnosis Infection Upper Respiratory - Primary documented in this encounter Additional Health Concerns Infection Onset Date Last Indicated Resolved Time COVID19 Pending 05/14/2020 05/14/2020 05/14/2020 11:31 PM NEUROLOGY TECHNOLOGIST documented as of this encounter
--- OUTSIDE RECORDS SUMMARY | 2022-02-14 17:18 | XMS_ITS | Encounter Summary ---
:1995 Author Organization [facility] Address [address] [place] [address] Care Team Providers Name Role Phone Unavailable Primary Care Provider Unavailable Encounter Details Date Type Department Care Team Description 01/25/2015 Hospital Encounter HX NO MAPPING Brigette Crump, LUIS, C.N.P. [address] [place], [place] [address] (Wo rk) Social History Tobacco Use Types Packs/Day Years Used Date Smoking Tobacco: Never Assessed Sex Assigned at Date Recorded Not on file documented as of this encounter Miscellaneous Notes Miscellaneous - Conversion, Historical Provider Ser - 01/25/2015 11:59 PM CDT Coding Summary-Paper Based CODING DATE: 02/02/2015 FINAL [facility] STATUS: * Discharged to Home or Self Care PAYOR: [employer] ADMIT DX: REASON FOR VISIT DX: FINAL DX: PRINCIPAL: 788.1 Dysuria SECONDARY: PROCEDURES DOCTOR NAME DATE NOTE: The code number assigned matches the documented diagnosis and / or procedure in the patient's chart. However, the narrative phrase printed from the coding software may appear abbreviated, or result in slightly different terminology. Coded By: BLADIMIR ELI Date Saved: 02/02/2015 09:41 pm Source: [facility]om[facility] InnovationsCHART Document Id: [id number] documented in this encounter Plan of Treatment Not on filedocumented as of this encounter Visit Diagnoses Not on filedocumented in this encounter
--- OUTSIDE RECORDS SUMMARY | 2022-02-14 17:19 | XMS_ITS | Encounter Summary ---
:1995 Author Organization [facility] Address [address] [place] [address] Care Team Providers Name Role Phone No Ref-Primary, Physician Primary Care Provider [phone] Encounter Details Date Type Department Care Team Description 09/12/2020 Travel Social History Tobacco Use Types Packs/Day Years Used Date Never Assessed Sex Assigned at Date Recorded Not on file COVID-19 Exposure Response Date Recorded In the last month, have you been in contact with No / Unsure 09/12/2020 4:33 PM CDT someone who was confirmed or suspected to have Coronavirus / COVID-19? documented as of this encounter Plan of Treatment Not on filedocumented as of this encounter Visit Diagnoses Not on filedocumented in this encounter Care Teams Canvas Shop Laborer Relationship Specialty Start Date End Date No Ref-Primary, Physician PCP - General 09/12/20 documented as of this encounter
--- OUTSIDE RECORDS SUMMARY | 2022-02-14 17:19 | XMS_ITS | Encounter Summary ---
:1995 Author Organization [facility] Address [address] [place] [address]. [place] [address] Care Team Providers Name Role Phone No Ref-Primary, Physician Primary Care Provider [phone] Reason for Visit Reason Comments Urgent Care Derm Problem full body rash since mon Encounter Details Date Type Department Care Team Description 09/12/2020 Office Visit [facility] Urgent Kenyetta Sawyer Ra sh (Primary Dx) Care [place] ZAIDA Scanlon [address] [place] [address] [place] [address] (Wo rk) Social History Tobacco Use Types Packs/Day Years Used Date Never Smoker Smokeless Tobacco: Never Used Sex Assigned at Date Recorded Not on file COVID-19 Exposure Response Date Recorded In the last month, have you been in contact with No / Unsure 09/12/2020 4:33 PM CDT someone who was confirmed or suspected to have Coronavirus / COVID-19? documented as of this encounter Last Filed Vital Signs Vital Sign Reading Time Taken Comments Blood Pressure 120/84 09/12/2020 4:37 PM CDT Pulse 90 09/12/2020 4:37 PM CDT Temperature 37.1 ??C (98.7 ??F) 09/12/2020 4:37 PM CDT Respiratory Rate 16 09/12/2020 4:37 PM CDT Oxygen Saturation 100% 09/12/2020 4:37 PM CDT Inhaled Oxygen Concentration - - Weight 59 kg (130 lb) 09/12/2020 4:37 PM CDT Height 154.9 cm (5' 1) 09/12/2020 4:37 PM CDT Body Mass Index 24.56 09/12/2020 4:37 PM CDT documented in this encounter Patient Instructions Patient InstructionsKenyetta Sawyer PA-C - 09/12/2020 4:30 PM CDT Please take prednisone as prescribed. Follow up with Dermatology if symptoms not improving as anticipated. documented in this encounter Progress Notes Kenyetta Sawyer PA-C - 09/12/2020 4:30 PM CDT Assessment & Plan Rash Etiology unclear at this time. She is in no acute distress. Prednisone Rx. Hydroxyzine prescribed asneeded for itching. Keep monitoring symptoms. Follow-up if any worsening symptoms. Patient agrees with the plan. - predniSONE (DELTASONE) 20 MG tablet Dispense: 10 tablet; Refill: 0 - hydrOXYzine (VISTARIL) 25 MG capsule Dispense: 30 capsule; Refill: 0 Return in about 1 week (around 09/19/2020) for Symptoms failing to improve. Kenyetta Sawyer PA-C [facility] Mckeon is a 25 year old female who presents to clinic today for the following health issues: Chief Complaint Patient presents with ??? Urgent Care ??? Derm Problem full body rash since mon Rash Onset of rash was 3 day(s) ago. Course of illness is worsening. Severity moderate Current and Associated symptoms: itching Location of the rash: generalized. Previous history of a similar rash? No Recent exposure history: none known Denies exposure to: environmental allergens, medications, new household products, new skincare products, recent immunization and viral illness Associated symptoms include: nothing. Treatment measures tried include: otc hydrocortisone cream, benadryl, calamine lotion Received first dose of Covid vaccine yesterday. Review of Systems Constitutional, HEENT, cardiovascular, pulmonary, gi and gu systems are negative, except as otherwise noted. Objective BP 120/84 Pulse 90 Temp 98.7 ??F (37.1 ??C) (Oral) Resp 16 Ht 1.549 m (5' 1) Wt 59 kg (130 lb) SpO2 100% BMI 24.56 kg/m?? Physical Exam GENERAL: healthy, alert and no distress HENT: ear canals and TM's normal, nose and mouth without ulcers or lesions RESP: lungs clear to auscultation - no rales, rhonchi or wheezes CV: regular rate and rhythm, normal S1 S2 SKIN: Erythematous papular rash noted on arms, chest, legs, sparing her back and face. No open wounds. No tenderness to palpation. No evidence of secondary infection. documented in this encounter Plan of Treatment Not on filedocumented as of this encounter Visit Diagnoses Diagnosis Rash - Primary Rash and other nonspecific skin eruption documented in this encounter Care Teams Head Automatic Sawyer Relationship Specialty Start Date End Date No Ref-Primary, Physician PCP - General 09/12/20 documented as of this encounter
--- OUTSIDE RECORDS SUMMARY | 2022-02-14 17:19 | XMS_ITS | Clinical Summary ---
:1995 Author Organization [facility] Address [address] [place] [address] Care Team Providers Name Role Phone No Ref-Primary, Physician Primary Care Provider [phone] Allergies No known active allergies Medications Medication Sig Dispensed Refills Start Date End Date Status hydrOXYzine (VISTARIL) Take 1 capsule 30 capsule 0 09/12/2020 Active 25 MG (25 mg) by mouth capsuleIndications: 3 times daily as Rash needed for itching Active Problems No known active problems Social History Tobacco Use Types Packs/Day Years [...] Mass Index 24.56 09/12/2020 4:37 PM CDT Plan of Treatment Health Maintenance Due Date Last Done Comments ADVANCE CARE PLANNING 1997 ANNUAL REVIEW OF HM ORDERS 1997 CHLAMYDIA SCREENING 1997 PREVENTIVE CARE VISIT 1997 COVID-19 Vaccine (#1) 1997 DTAP/TDAP/TD IMMUNIZATION 2008 02/05/2003, 12/27/1999 , (6 - Tdap) 06/09/1998, Additional history exists HIV SCREENING 2012 HEPATITIS C SCREENING 2015 PAP 2018 PHQ-2 (once per calendar 06/26/2021 year) INFLUENZA VACCINE (#1) 2022 HEPATITIS B IMMUNIZATION Completed 06/09/1998, 1997, 1997 IPV IMMUNIZATION Completed 02/05/2003, 06/09/1998, 1997, Additional history exists HPV IMMUNIZATION Completed 09/20/2011, 06/09/2011, 02/10/2010 MENINGITIS IMMUNIZATION Aged Out No longe r eligible based on patient 's age to complete this topic Pneumococcal Vaccine: Aged Out No longer eligible Pediatrics (0 to 5 Years) based on patient's age and At-Risk Patients (6 to to co mplete this topic 64 Years) Insurance Payer Benefit Plan / Subscriber ID Effective Dates Phone Addre ss Type Group BCBS BCBS OF [place] [id number] 2020-Stefany [phone] [address] [address] Indemnity t 0 [place] [address] Care Teams Director Of Manufacturing Relationship Specialty Start Date End Date No Ref-Primary, Physician PCP - General 09/12/20
[2022-02-14 17:59] LABS: Albumin* 4.9 g/dL (3.3-5.0); Chloride* 101 mmol/L (96-114)
[2022-02-14 18:00] LABS: D Dimer Quantitative* < 0.27 ug/ml (0.00-0.50); Potassium* 4.1 mmol/L (3.6-5.1); Sodium* 139 mmol/L (135-149)
[2022-02-14 18:02] LABS: Aspartate Amino Transferase* 13 U/L (12-35); Bilirubin Total* 0.4 mg/dL (0.1-1.5); Carbon Dioxide* 24 mmol/L (20-32); Creatinine* 0.8 mg/dL (0.5-1.5); Estimated Glomerular Filt Rate 105 ml/min; Total Protein* 8.2 g/dL (6.0-8.3)
[2022-02-14 18:03] LABS: Alanine Aminotransferase* 11 U/L (4-35); Alkaline Phosphatase* 83 U/L (40-150); Blood Urea Nitrogen* 17 mg/dL (5-24); Calcium* 9.4 mg/dL (8.4-10.6); Glucose* 101 mg/dL (60-115)
== END 2022-02-14 17:15 | disposition home or self-care (01) ==
LOC: NFLDREF 17:16
PROVIDERS: PCP Family Medicine; Visit Provider Family Medicine
DX: R07.9 Chest pain, unspecified (principal)
CPT/HCPCS: 80053; 85379

== ENCOUNTER 2022-02-15 09:00 | Outpatient (CLI) | payer BC, SELFPAY ==
--- OUTSIDE RECORDS SUMMARY | 2022-02-15 09:04 | XMS_ITS | Encounter Summary ---
:1995 Author Organization [facility] Address [address] [place] [address] Care Team Providers Name Role Phone Unavailable Primary Care Provider Unavailable Encounter Details Date Type Department Care Team Description 04/16/2020 Clinical Communication Division of [facility], , RLizethNLizeth Criders, in [phone] [place], [place] (Work) [address] [place] [address] Social History Tobacco Use Types Packs/Day Years [...]
--- OUTSIDE RECORDS SUMMARY | 2022-02-15 09:04 | XMS_ITS | Clinical Summary ---
:1995 Author Organization [facility] Address [address] [place] [address] Care Team Providers Name Role Phone No Ref-Primary, Physician Primary Care Provider Allergies No known active allergies Medications Medication [...] Addre ss Type Group BC[place] OF [place] [id number] 2020-Stefany [phone] [address] [address] Indemnity t 0 [place] [address] Care Teams Felt Pad Cutter Relationship Specialty Start Date End Date No Ref-Primary, Physician PCP - General 09/12/20
--- OUTSIDE RECORDS SUMMARY | 2022-02-15 09:04 | XMS_ITS | Encounter Summary ---
:1995 Author Organization [facility] Address [address] [place] [address] Care Team Providers Name Role Phone Unavailable Primary Care Provider Unavailable Encounter Details Date Type Department Care Team Description 01/25/2015 Hospital En[facility] Crow Harris APRN, C.N.P. [address] [place] [address] (Wo rk) Social History Tobacco [...] APRN, C.N.P. - 01/25/2015 10:07 AM CDT [id number] CHIEF COMPLAINT/REASON FOR VISIT Discomfort with urination. [...] Will be in the 12th grade at [employer] [facility]. IMMUNIZATIONS: Are reported as up to date. [...] Okay to call the patient's cellphone at [phone]. Preferred pharmacy is [facility]. Continue water and cranberry juice supplementation. Follow [...] HARRIS NP On: 01/26/2015 08:23 PM Source: [facility] Document Id: [id number] documented in this encounter Procedure Notes Perla [...] : Negative Test Strip Lot # : [id number] Test Strip Expiration Date : 12/24/2015 PERLA MOORE - 01/25/2015 10:15 CDT Source: [facility] POWERCHART Document Id: [id number] CDT!16 documented in this encounter Nursing Notes [...] necessary, additional treatment may be started. ?? [id number] Anna Ugarte, [address] [place] [address]. All rights reserved. This information is not intended as a substitute for professional medical care. Always follow your healthcare professional's instructions. This document has images extracted. Please consider using [employer] for all your patient education needs. Source: [facility] Document Id: [id number] Brigette Harris APRN, C.N.P. - 01/25/2015 11:10 AM CDT Ambulatory Patient Education The following Patient Education Materials have been given to the patient: Patient Education Materials: Source: [employer] Document Id: [id number] documented in this encounter Miscellaneous Notes Miscellaneous - Perla Moore C.M.A. - 01/25/2015 10:59 AM CDT Pediatric Armored Car Guard Intake/History Pediatric Armored Car Guard Intake/History Entered On: 01/25/2015 11:02 CDT Performed [...] Preferred Communication Mode : Verbal Languages : Kazakh Is Patient Female and 13-50 no hysterectomy [...] MOORE Aravind - 01/25/2015 10:59 CDT Source: [facility] [employer]CHART Document Id: [id number] CDT!29 documented in this encounter Plan of [...] Culture, Aerobic, Urine (01/25/2015 10:19 AM CDT) [facility] Method Time Signature Bacterial POWERCHART Culture, Aerobic, Urine [facility] Mixed deja. No POWERCHART further studies unless notified. [facility] POWERCHART Microbiology laboratory [phone]. Specimen (Source) Anatomical Collection Method Collection Time Re ceived Time Location / / Volume Laterality Urine, First 01/25/2015 10:19 Voided AM CDT Brigette Harris APRN, C.N.P. LAB MICROBIOLOGY - GENERAL ORDERABLES Performing Organization Address City/State/ZIP Code Phon e Number POWERCHART Ketone, Urine, POCT (01/25/2015 10:15 AM CDT) [facility] Method Time Signature Color Colorless POWERCHART Appearance Cloudy POWERCHART Leukocytes, 3+ Large POWERCHART POCT, U Nitrites, Negative POWERCHART POCT, U Urobilinogen, 0.2 mg/dl POWERCHART POCT, Urine Protein, POCT, Negative POWERCHART U pH, POCT, 7.0 5.0 - 9.0 POWERCHART Urine Blood, POCT, U 2+ MODERATE POWERCHART Specific 1.015 1.000 - POWERCHART [place], POCT, 1.030 U Ketone, POCT, Negative POWERCHART U Bilirubin, Negative POWERCHART POCT, U Glucose, POCT, Negative POWERCHART U Specimen (Source) Anatomical Collection Method Collection Time Re ceived Time Location / / Volume Laterality 01/25/2015 10:15 AM CDT Brigette Harris APRN, C.N.P. LAB POCT ORDERABLES-MANUAL Performing Organization Address City/State/ZIP Code Phon e Number POWERCHART documented in this encounter Visit Diagnoses Not on filedocumented in this encounter
--- OUTSIDE RECORDS SUMMARY | 2022-02-15 09:04 | XMS_ITS | Encounter Summary ---
:1995 Author Organization [facility] Address [address] [place] [address] Care Team Providers Name Role Phone No Ref-Primary, Physician Primary Care Provider [phone] Encounter Details Date Type Department Care [...] on filedocumented in this encounter Care Teams Negotiator Sales Relationship Specialty Start Date End Date No Ref-Primary, Physician PCP - General 09/12/20 documented as of this encounter
--- OUTSIDE RECORDS SUMMARY | 2022-02-15 09:04 | XMS_ITS | Encounter Summary ---
:1995 Author Organization [facility] Address [address] [place] [address] Care Team Providers Name Role Phone Unavailable Primary Care Provider Unavailable Reason for Visit Reason Onset Date Comments Outpatient COVID-19 Testing 05/14/2020 Encounter Details Date Type Department Care Team Description 05/14/2020 External Outreach Department of [facility] Jesus, In [facility] Medicine in [facility], Respirato ry ([place], [place] C.N.P., D.N.P. Dx) [address] [facility] [address] [place] [address] [place], [place] [phone] [address] Social History Tobacco Use Types Packs/Day Years Used Date Smoking Tobacco: Never Sex Assigned at Date Recorded Not on file documented as of this encounter Progress Notes Virgen Cano R.N. - 05/14/2020 10:04 AM CST Encounter created for the drive-through COVID-19 testing. LUTION AGENT documented in this encounter Plan of Treatment Not on filedocumented as of this encounter Procedures Procedure Name Priority Date/Time Associated Diagnosis Comme nts SARS CORONAVIRUS-2 Routine 05/14/2020 11:06 AM Infection Upper Results for this RNA, V RESOLUTION AGENT Respiratory procedure are i n the results section. documented in this encounter Results SARS Coronavirus-2 RNA, V Symptomatic (05/14/2020 11:06 AM RESOLUTION AGENT) [facility] Method Time Signature SARS-CoV-2 Swab, 05/14/2020 MKTO Specimen Nasopharynx 11:30 PM Source RESOLUTION AGENT SARS CoV-2 Undetected Undetected 05/14/2020 SABI RNA, TMA 11:30 PM RESOLUTION AGENT Comment: SARS-CoV-2 RNA absent. This result does not rule out COVID-19 in the patient, as the sensitivity of the test depends o n the timing of the specimen collection and the quality of the specim en. Result should be correlated with patient's history and clinical presentat ion. ----ADDITIONAL INFORMATION---- This test is performed using the Aptima SARS-CoV-2 assay ([employer] which has received Emergency Use Authori zation (EUA) by the U.S. Food and Drug Administration. Fact sheets for this Emergency Use Autho rization (EUA) assay can be found at the following links: For Healthcare Providers: https://www.[employer] a.gov/media/672903/download For Patients: https://www.fda.gov/media/ 143780/download Specimen Anatomical Collection Method Collection Time Receive d Time (Source) Location / / Volume Laterality Varies 05/14/2020 11:06 05/14/2020 5:43 (Nasopharynx) AM RESOLUTION AGENT PM RESOLUTION AGENT Yoshi Sanchez APRN.NJyotsna., D.N.P. LAB MICROBIOLOGY - GENERAL ORDERABLES Performing Organization Address City/State/ZIP Code Phon e Number [facility] [address] [place] [address] [place] [address] [address] documented in this encounter Visit Diagnoses Diagnosis Infection Upper Respiratory - Primary documented in this encounter Additional Health Concerns Infection Onset Date Last Indicated Resolved Time COVID19 Pending 05/14/2020 05/14/2020 05/14/2020 11:31 PM RESOLUTION AGENT documented as of this encounter
--- OUTSIDE RECORDS SUMMARY | 2022-02-15 09:04 | XMS_ITS | Encounter Summary ---
:1995 Author Organization [facility] Address [address] [place] [address]. [place] [address] Care Team Providers Name Role Phone No Ref-Primary, Physician Primary Care Provider Reason for Visit Reason Comments Urgent Care Derm Problem full body rash since mon Encounter Details Date Type Department Care Team Description 09/12/2020 Office Visit [facility] Urgent Kenyetta Sawyer Ra sh (Primary Dx) Care [place] ZAIDA Scanlon [address] [place] [address] [place] [address] (Wo rk) Social History Tobacco [...] Symptoms failing to improve. Kenyetta Sawyer PA-C [facility] PHILIP Mckeon is a 25 [...] eruption documented in this encounter Care Teams Pairer Odds Relationship Specialty Start Date End Date No Ref-Primary, Physician PCP - General 09/12/20 documented as of this encounter
--- OUTSIDE RECORDS SUMMARY | 2022-02-15 09:04 | XMS_ITS | Encounter Summary ---
:1995 Author Organization [facility] Address [address] [place] [address] Care Team Providers Name Role Phone Unavailable Primary Care Provider Unavailable Encounter Details Date Type Department Care Team Description 10/22/2020 Orders Only [facility] PCP [facility] Candido Delacruz Jr., M.D. [facility] [place] [phone] (Wo rk) Social History Tobacco Use Types Packs/Day Years Used Date Smoking Tobacco: Never Sex Assigned at Date Recorded Not on file documented as of this encounter Plan of Treatment Not on filedocumented as of this encounter Visit Diagnoses Not on filedocumented in this encounter
--- OUTSIDE RECORDS SUMMARY | 2022-02-15 09:04 | XMS_ITS | Encounter Summary ---
:1995 Author Organization [facility] Address [address] [place] [address] Care Team Providers Name Role Phone Unavailable Primary Care Provider Unavailable Encounter Details Date Type Department Care Team Description 12/25/2014 Hospital Encounter [facility] Crow Harris APRN, C.N.P. [address] [place] [phone] (Wo rk) Social History Tobacco Use Types [...] APRN, C.N.P. - 12/25/2014 6:16 PM CDT [id number] CHIEF COMPLAINT/REASON FOR VISIT Ear pain. HISTORY [...] a head. No discharge is noted. Throat: [place]. LYMPH: Neck is supple. No lymphadenopathy palpated. [...] Harris, C.N.P./pos Electronically Signed By: BRIGETTE HARRIS ENGINEERING TECHNICAL ANALYST On: 12/27/2014 10:15 AM Source: [facility] MHSDOLBEYNONRADSYS Document Id: [id number] documented in this encounter Nursing Notes Brigette [...] directed by your health care provider ?? [phone] [place] [address]. All rights reserved. This information is not intended as a substitute for professional medical care. Always follow your healthcare professional's instructions. Source: [facility] SymformCHART Document Id: [id number] Brigette Harris APRN, C.N.P. - 12/25/2014 8:19 PM CDT Ambulatory Patient Education The following Patient Education Materials have been given to the patient: Patient Education Materials: Source: [facility] POWERCHART Document Id: [id number] documented in this encounter Miscellaneous Notes Miscellaneous - Lety Tomas C.M.A. - 12/25/2014 6:18 PM CDT Pediatric Ice Cream Maker Intake/History Pediatric Ice Cream Maker Intake/History Entered On: 12/25/2014 18:22 CDT Performed [...] 12/25/2014 18:19 CDT General Info Languages : Djiboutian Is Patient Female and 13-50 no hysterectomy [...] LETY TOMAS - 12/25/2014 18:19 CDT Source: [facility] POWERCHART Document Id: [id number] CDT!28 documented in this encounter Plan of Treatment Not on filedocumented as of this encounter Visit Diagnoses Not on filedocumented in this encounter
--- OUTSIDE RECORDS SUMMARY | 2022-02-15 09:04 | XMS_ITS | Encounter Summary ---
:1995 Author Organization [facility] Address [address] [place] [address] Care Team Providers Name Role Phone Unavailable Primary Care Provider Unavailable Encounter Details Date Type Department Care Team Description 01/25/2015 Hospital Encounter HX NO MAPPING Brigette Crump, LUIS, C.N.P. [address] [place], [place] [phone] (Wo rk) Social History Tobacco Use Types Packs/Day Years Used Date Smoking Tobacco: Never Assessed Sex Assigned at Date Recorded Not on file documented as of this encounter Miscellaneous Notes Miscellaneous - Conversion, Historical Provider Ser - 01/25/2015 11:59 PM CDT Coding Summary-Paper Based CODING DATE: 02/02/2015 FINAL [facility] STATUS: * Discharged to Home or Self [...] ELI Date Saved: 02/02/2015 09:41 pm Source: [facility] NETWORK[facility]SpireCHART Document Id: [id number] documented in this encounter Plan of Treatment Not on filedocumented as of this encounter Visit Diagnoses Not on filedocumented in this encounter
--- OUTSIDE RECORDS SUMMARY | 2022-02-15 09:04 | XMS_ITS | Encounter Summary ---
:1995 Author Organization [facility] Address [address] [place] [address] Care Team Providers Name Role Phone Unavailable Primary Care Provider Unavailable Encounter Details Date Type Department Care Team Description 01/02/2016 Hospital Encounter HX NO MAPPING Bev Lee, COMMERCIAL SALES DIRECTOR, C.N.P., ANTONIO, R.N. Social History Tobacco Use Types Packs/Day Years Used Date Smoking Tobacco: Never Assessed Sex Assigned at Date Recorded Not on file documented as of this encounter Miscellaneous Notes Miscellaneous - Conversion, Historical Provider Ser - 01/02/2016 11:59 PM CDT Coding Summary-Paper Based CODING DATE: 01/14/2016 FINAL [facility] STATUS: * Discharged to Home or Self [...] ESCOBAR Date Saved: 01/14/2016 08:10 am [facility] Document Id: [id number] documented in this encounter Plan of Treatment Not on filedocumented as of this encounter Visit Diagnoses Not on filedocumented in this encounter
--- OUTSIDE RECORDS SUMMARY | 2022-02-15 09:04 | XMS_ITS | Clinical Summary ---
:1995 Author Organization [facility] Address [address] [place] [address] Care Team Providers Name Role Phone Unavailable Primary Care Provider Unavailable Source Comments Patient records contain information from all sites at [facility]. For routine questions regarding patient records, call [phone] during business hours, M-F 8:00 AM - 5:00 PM Central Time. Record requests for emergency care only can be directed to [phone] at any time.[facility] Social History Tobacco Use Types Packs/Day [...] Phone Address Type / Group KRISTYN ESQUEDA [facility] [id number] [address] [phone] [address] [address] PPO [facility] [address] [place] [address]
--- OUTSIDE RECORDS SUMMARY | 2022-02-15 09:04 | XMS_ITS | Encounter Summary ---
:1995 Author Organization [facility] Address [address] [place] [address] Care Team Providers Name Role Phone Unavailable Primary Care Provider Unavailable Encounter Details Date Type Department Care Team Description 01/02/[address] [facility] Gama Lee APRN, C.N.P., ANTONIO, [...] APRN, C.N.P. - 01/02/2016 11:10 AM CDT [id number] CHIEF COMPLAINT/REASON FOR VISIT Possible bladder infection. [...] days ago. She has not used any gxmr-vts-pmojwxr medications for relief of her symptoms. She [...] APRN, C.N.P./pos Electronically Signed By: GAMA LEE SIDE HEMMER On: 01/04/2016 02:55 PM Source: [facility] MHSDOLBEYNONRADSYS Document Id: [id number] documented in this encounter Procedure Notes Lance [...] : Negative Test Strip Lot # : [id number] Test Strip Expiration Date : 12/23/2016 LANCE MOORE - 01/02/2016 11:27 CDT [facility] Document Id: [id number] CDT!16 documented in this encounter Miscellaneous Notes Miscellaneous - Gama Lee APRN, C.N.P. - 01/02/2016 11:43 AM CDT Ambulatory Patient Summary Express Care - [facility] [address] [place], [place] [phone] Visit Information Name: ZUHAIR SIN [facility] Number: [id number] Current Date: 01/02/2016 11:43:46 Physicians [...] x 5 day(s) bladder [facility] [address] [place] [address] norgestimate-ethinyl estradiol (Mononessa) 1 Tablet(s), Oral, once [...] if you dont have one. Go to [email or web address] and click on Create Your Account. Then, follow the directions to complete the online form. Youll be asked for your [facility] number which you can find at the top of this document. Your Goals/Additional instructions: Source: [facility] POWERCHART Document Id: [id number] Miscellaneous - Gama Lee APRN, C.N.P. - 01/02/2016 11:43 AM CDT Ambulatory Discharge Medication List Express Care - [address] [phone] Visit Information Name: ZUHAIR SIN [facility] Number: [id number] Visit Date: 01/02/2016 11:43:46 Attending [...] x 5 day(s) bladder [facility] [address] [place], [place] [phone] norgestimate-ethinyl estradiol (Mononessa) 1 Tablet(s), Oral, once [...] 11:43:42 Additional Information: Yes - . Source: [facility] POWERCHART Document Id: [id number] Miscellaneous - Lance Moore, C.M.A. - 01/02/2016 11:36 AM CDT Adult New Car Sales Manager Intake/History Adult New Car Sales Manager Intake/History Entered On: 01/02/2016 11:40 CDT Performed [...] Preferred Communication Mode : Verbal Languages : Dominican Is Patient Female and 13-50 no hysterectomy [...] LANCE MOORE - 01/02/2016 11:36 CDT Source: [employer] Document Id: [id number] CDT!36 documented in this encounter Plan of [...] Suscep tible (MCG/ML) Escherichia coli Cefepime SUSCEPTIBILITY, SEA <=1: Suscep tible (MCG/ML) Escherichia coli Ceftazidime [...] ptible Sulfamethoxazole (MCG/ML) Escherichia coli Tobramycin SUSCEPTIBILITY, ASE <=1: Suscep tible (MCG/ML) Gama Lee APRN, C.N.P., [place], R.N. LAB MICROBIOLOGY - GENERAL ORDERABLES Performing Organization Address City/State/ZIP Code Phon e Number POWERCHART Ketone, Urine, POCT (01/02/2016 11:27 AM CDT) [facility] Method Time Signature Color Yellow POWERCHART Appearance Cloudy POWERCHART Leukocytes, 2+ Moderate POWERCHART POCT, U Nitrites, Negative POWERCHART POCT, U Urobilinogen, 0.2 mg/dl POWERCHART POCT, Urine Protein, POCT, 1+ (30 POWERCHART U mg/dl) pH, POCT, 8.0 5.0 - 9.0 POWERCHART Urine Blood, POCT, U 2+ MODERATE POWERCHART Specific 1.015 1.000 - POWERCHART [place], POCT, 1.030 U Ketone, POCT, Negative POWERCHART [...]
--- OUTSIDE RECORDS SUMMARY | 2022-02-15 09:04 | XMS_ITS | Encounter Summary ---
:1995 Author Organization [facility] Address [address] [place] [address] Care Team Providers Name Role Phone Unavailable Primary Care Provider Unavailable Reason for Visit Reason Comments COVID Inquiry Encounter Details Date Type Department Care Team Description 05/14/2020 Clinical Communication Department of Spine WILY KellyID Inquiry in [facility] [address] [place] [address] Social History Tobacco Use Types Packs/Day Years Used Date Smoking Tobacco: Never Sex Assigned at Date Recorded Not on file documented as of this encounter Miscellaneous Notes Telephone Encounter - Alejandro Walsh - 05/14/2020 9:55 AM CST Plan: Endpoint recommendation: Testing indicated, sent patient to [facility] located at [address] [place] [address]. When you arrive in the parking lot, [...] sending patient for testing in T or [facility], an email notification is required. BALL HAND SEWER documented in this encounter Plan of Treatment Not on filedocumented as of this encounter Visit Diagnoses Not on filedocumented in this encounter Additional Health Concerns Infection Onset Date Last Indicated Resolved Time COVID19 Pending 05/14/2020 05/14/2020 05/14/2020 11:31 PM BASEBALL HAND SEWER documented as of this encounter
--- OUTSIDE RECORDS SUMMARY | 2022-02-15 09:04 | XMS_ITS | Encounter Summary ---
:1995 Author Organization [facility] Address [address] [place] [address] Care Team Providers Name Role Phone Unavailable Primary Care Provider Unavailable Reason for Visit Reason Onset Date Comments Outpatient COVID-19 Testing 04/16/2020 Encounter Details Date Type Department Care Team Description 04/16/2020 External Outreach Department of Jerman Finley [facility] ([facility], C.N.P., D.N.P. Dx) [place] [address] [facility] [address] [place] [phone] Social History Tobacco Use Types Packs/Day Years [...] RNA, V Symptomatic (04/16/2020 10:52 AM CDT) [facility] Method Time Signature SARS-CoV-2 Swab, 04/16/2020 MKTO [...] is performed using the Aptima SARS-CoV-2 assay ([employer] which has received Emergency Use Authori zation (EUA) by the U.S. Food and Drug Administration. Fact sheets for this Emergency Use Autho rization (EUA) assay can be found at the following links: For Healthcare Providers: https://www.[employer] a.gov/media/248258/download For Patients: https://www.fda.gov/media/ 586336/download Specimen Anatomical Collection Method Collection Time Receive d Time (Source) Location / / Volume Laterality Varies 04/16/2020 10:52 04/16/2020 3:18 (Nasopharynx) AM CDT PM CDT Maria Luisa Finley APRN C.N.P., D.N.P. LAB [facility] OLOGY - GENERAL ORDERABLES Performing Organization Address City/State/ZIP Code Phon e Number [facility]- [address] [place] [address] [place] [address] [address] documented in this encounter Visit Diagnoses Diagnosis Infection Upper Respiratory - Primary documented in this encounter Additional Health Concerns Infection Onset Date Last Indicated Resolved Time COVID19 Pending 04/16/2020 04/16/2020 04/16/2020 10:54 PM CDT documented as of this encounter
--- NOTE | 2022-02-15 14:00 | CRLHL7_ITS ---
For Patients: As a result of the Century Cures Act, medical imaging exams and procedure reports are released immediately into your electronic medical record. You may view this report before your referring provider. If you have questions, please contact your health care provider. INDICATION: Pain in thoracic spine, abnormal hilar contour on chest x-ray. CT CHEST WITH CONTRAST TECHNIQUE: Multidetector CT imaging was performed through the chest following intravenous contrast administration using 75 mL Isovue 370. Coronal and sagittal reconstructions were generated. COMPARISON: None. FINDINGS: Lungs and airways: No confluent infiltrates, suspicious nodules, or masses. Central airways are patent. Pleura and pleural spaces: No pleural effusions or pneumothorax. Heart and mediastinum: Normal heart size. No significant pericardial effusion. Unremarkable pulmonary norberto. Soft tissue mass in the anterior mediastinum centered to the right of midline, measuring approximately 8.9 x 3.6 x 7.3 centimeters. This mass has mildly lobulated margins, is of soft tissue density with relatively homogeneous density, and shows no definite calcifications. It appears separate from the thyroid. Vascular structures: Normal caliber thoracic aorta. Chest wall and axillae: No mass or axillary lymphadenopathy. Osseous structures: Normal for age. Upper abdomen: Unremarkable. IMPRESSION: Nonspecific 8.9 x 3.6 x 7.3 centimeter anterior mediastinal mass as detailed above. Differential considerations include lymphoma, teratoma or germ cell tumor, thymoma, and other possibilities. DELMA VALADEZ MD [employer] Dictated by Erwin Valadez MD @ 02/15/2022 3:35:10 PM Please note that all CT scans at this facility use dose modulation, iterative reconstruction, and/or weight-based dosing when appropriate to reduce radiation dose to as low as reasonably achievable. Dictated by: Erwin Valadez MD @ 02/15/2022 15:37:53 (Electronically Signed)
== END 2022-02-15 09:01 | disposition home or self-care (01) ==
PROVIDERS: PCP Family Medicine; Visit Provider Family Medicine
DX: R07.89 Other chest pain (principal); R22.2 Localized swelling, mass and lump, trunk; M54.6 Pain in thoracic spine
CPT/HCPCS: 71260; Q9967

== ENCOUNTER 2022-03-24 15:30 | Outpatient (CLI) | payer BC, SELFPAY ==
--- OUTSIDE RECORDS SUMMARY | 2022-03-24 11:49 | XMS_ITS | Clinical Summary ---
:1995 Author Organization [facility] [place] [address] Care Team Providers Name Role Phone Unknown, Doctor Primary Care Provider Unavailable Allergies No known active allergies Medications Medication Sig Dispensed Refills Start Date End Date Status ANTIPYRINE-BENZOCAINE 5 drops to qs 0 11/08/2006 Active 5.4 %-1.4 % EAR affected ear up DROPSIndications: Acute to three times serous otitis media daily as needed for pain escitalopram oxalate Take 20 mg by 0 02/26/2021 Active (LEXAPRO) 20 mg tablet mouth once daily. spironolactone TAKE 1 TABLET BY 0 03/27/2021 Active (ALDACTONE) 100 mg MOUTH EVERY DAY tablet WITH WATER Active Problems Not on file Encounters Date Type Specialty Care Team Description 02/07/2022 Lab Requisition Unknown, Doctor from Last 3 Months Immunizations Name Administration Dates Next Due DTaP 02/05/2003, 12/27/1999, 06/09/1998, 08/25, 1997 HIB-HepB (Comvax) 06/09/1998, 1997, 1997 Inactivated Polio Vaccine 02/05/2003, 06/09/1998, 1997 , 1997 MMR 02/05/2003, 07/08/1998 Varicella Vaccine 07/08/1998 Family History Medical History Relation Name Comments Good Health Father Good Health Mother Relation Name Status Comments Father Mother Social History Tobacco Use Types Packs/Day Years Used Date Passive Smoke Exposure - Never Smoker Smokeless Tobacco: Never Used Comments: Mom smokes outside Alcohol Use Standard Drinks/Week Comments Not Asked 0 (1 standard drink = 0.6 oz pure alcoho l) Sex Assigned at Date Recorded Not on file Obstetrics History Last Filed Vital Signs Vital Sign Reading Time Taken Comments Blood Pressure 123/75 04/19/2021 9:49 AM CDT Pulse 78 04/19/2021 9:49 AM CDT Temperature 36.5 ??C (97.7 ??F) 04/19/2021 9:49 AM CDT Respiratory Rate 14 04/19/2021 9:49 AM CDT Oxygen Saturation 98% 04/19/2021 9:49 AM CDT Inhaled Oxygen Concentration - - Weight 59 kg (130 lb) 04/19/2021 9:49 AM CDT Height 132.1 cm (4' 4) 11/08/2006 9:00 AM CDT Body Mass Index - - Plan of Treatment Health Maintenance Due Date Last Done Comments HPV series for age 9-26 (1 - 2-dose 2008 series) Tdap 2008 Depression screening for age 12+ 2009 Chlamydia for age 16-24 2013 BMI (ht and wt on same day) for age 18+ 2015 Hepatitis C screening for age 18-79 2015 Tetanus booster 2017 COVID-19 vaccine series (3 - Booster for 03/04/2021 021, 09/11/2020 Pfizer series) Influenza for age 9-49 02/24/2022 Pap test for age 21-65 02/04/2025 02/04/2022 Procedures Procedure Name Priority Date/Time Associated Diagnosis Comme nts LAB TRACKING EVENT Routine 02/04/2022 3:03 PM CDT HEALTH POLICY ANALYST THIN PREP PAP Routine 02/04/2022 3:03 PM Resu lts for this SCREEN IMAGED CDT procedure are in the results section. from Last 3 Months Results LAB TRACKING EVENT (02/04/2022 3:03 PM CDT) Specimen Anatomical Collection Method Collection Time Receive d Time (Source) Location / / Volume Laterality Other (Other) Client Collect / 02/04/2022 3:03 PM 01/24 4:20 Unknown CDT PM CDT Doctor Unknown LAB BILL ONLY Performing Organization Address City/State/ZIP Code Phon e Number [id number] [place] [address] LABORATORY-CENTRAL 2000 LABORATORY HEALTH POLICY ANALYST THIN PREP PAP SCREEN IMAGED (02/04/2022 3:03 PM CDT) Component Value Ref Test Analysis Performed At [facility] gist Range Method Time Signature Case Report Gynecologic Cytology Report ? Case: [id number] ? 02/20/2022 [facility] Authorizing Provider: ??Unkn own, Doctor ?Collected: ? 02/04/2022 1503 ? 3:20 PM HEAL TH Ordering Location: ? [facility] CENTRAL LAB ?Received: ?02/07/2022 1750 ? CDT [place] BORATORY-C First Screen: ? Jassi Gamino ? ENTRAL Specimen: ?HEALTH POLICY ANALYST ThinPrep Vial Screening, Cervical/Vaginal ? LABORATORY INTERPRETATI NEGATIVE FOR (none) 02/20/2022 [facility] Briana ctronically ON/RESULT INTRAEPITHELIAL 3:20 PM HEALTH sign ed by LESION OR CDT LABORATORY-C Jassi Gamino on MALIGNANCY (NIL) ENTRAL 01/25 at LABORATORY 3:20 PM SPECIMEN Satisfactory for evaluation 02/20/2022 [facility] ADEQUACY Endocervical component present 3:20 PM HEALTH CDT LABORATORY-C ENTRAL LABORATORY HPV REQUEST HPV not requested 02/20/2022 [facility] 3:20 PM HEALTH CDT LABORATORY-C ENTRAL LABORATORY Date of LMP 02/20/2022 [facility] 3:20 PM HEALTH CDT LABORATORY-C ENTRAL LABORATORY Comment: unknown, mirena IUD Last Pap Date 02/20/2022 3:20 PM CDT [facility] LABORATORY-CENTRAL LABORATORY Comment: unknown Abnormal Pap or No 02/20/2022 3:20 [facility] [place] Bx in last 5 PM CDT LABORATORY-C ENTRAL years LABORATORY Menstrual Status Hormonally 02/20/2022 3:20 [facility] Suppressed PM CDT LABORATORY-CENTRAL LABORATORY Additional 02/20/2022 3:20 [facility] Information PM CDT LABORATORY-CENTRAL LABORATORY Comment: Interpreted at [facility], Central Laboratory - [address], [place] [address] Automated Review Successful 02/20/2022 3:20 PM CDT [facility] LABORATORY-CENTRAL L ABORATORY Comment: Specimen processed successfully by automated surgical technology instructor device, ThinPrep Imaging System, [employer] Note The pap test is a 02/20/2022 3:20 PM ID [facility] screening technique, not CDT LABOR ATORY-CENTRAL LABORATORY a diagnostic procedure. It is used primarily to screen for squamous cancers and precursor lesions. Published studies have shown that it is subject to both false negative and false positive results. The pap test should not be used as the sole means to diagnose or exclude pre-malignant and malignant lesions. Specimen Anatomical Collection Method Collection Time Receive d Time (Source) Location / / Volume Laterality Other 02/04/2022 3:03 PM 2 5:50 (Cervical/Vagina CDT PM CDT l) Doctor Unknown PATHOLOGY/CYTOLOGY Performing Organization Address City/State/ZIP Code Phon e Number [employer] [address] [place] [address] LABORATORY-CENTRAL 2000 LABORATORY from Last 3 Months Insurance Payer Benefit Plan / Subscriber ID Effective Dates Phone Addre ss Type Group [employer] OF [id number] Effective for [address] [place] [address] [employer] BL[employer] OF [id number] 2020-Present [address] [place] [address] Care Teams Equipment Mechanic Specialist Relationship Specialty Start Date End Date Unknown, Doctor PCP - General 11/08/06 .
--- OUTSIDE RECORDS SUMMARY | 2022-03-24 11:49 | XMS_ITS | Encounter Summary ---
:1995 Author Organization [facility] Address [address] [place] [address] Care Team Providers Name Role Phone Unavailable Primary Care Provider Unavailable Encounter Details Date Type Department Care Team Description 12/25/2014 Hospital Encounter [facility]X [facility] Crow Harris APRN, C.N.P. [address] [place] [phone] (Wo rk) Social History Tobacco Use Types [...] APRN, C.N.P. - 12/25/2014 6:16 PM CDT [id number] CHIEF COMPLAINT/REASON FOR VISIT Ear pain. HISTORY [...] a head. No discharge is noted. Throat: [place]. LYMPH: Neck is supple. No lymphadenopathy palpated. [...] Harris, C.N.P./pos Electronically Signed By: BRIGETTE HARRIS ASSISTANT PROFESSOR OF ART On: 12/27/2014 10:15 AM Source: [facility] MHSDOLBEYNONRADSYS Document Id: [id number] documented in this encounter Nursing Notes Brigette [...] directed by your health care provider ?? [phone] [place] [address]. All rights reserved. This information is not intended as a substitute for professional medical care. Always follow your healthcare professional's instructions. Source: [facility] [employer]CHART Document Id: [id number] Brigette Harris APRN, C.N.P. - 12/25/2014 8:19 PM CDT Ambulatory Patient Education The following Patient Education Materials have been given to the patient: Patient Education Materials: Source: [facility] POWERCHART Document Id: [id number] documented in this encounter Miscellaneous Notes Miscellaneous - Lety Tomas C.M.A. - 12/25/2014 6:18 PM CDT Pediatric Firepot Operator And Tender Intake/History Pediatric Firepot Operator And Tender Intake/History Entered On: 12/25/2014 18:22 CDT Performed [...] 12/25/2014 18:19 CDT General Info Languages : Botswanan Is Patient Female and 13-50 no hysterectomy [...] LETY TOMAS - 12/25/2014 18:19 CDT Source: [facility] POWERCHART Document Id: [id number] CDT!28 documented in this encounter Plan of Treatment Not on filedocumented as of this encounter Visit Diagnoses Not on filedocumented in this encounter
--- OUTSIDE RECORDS SUMMARY | 2022-03-24 11:49 | XMS_ITS | Encounter Summary ---
:1995 Author Organization [facility] Address [address] [place] [address] Care Team Providers Name Role Phone Unavailable Primary Care Provider Unavailable Encounter Details Date Type Department Care Team Description 04/16/2020 Clinical Communication Division of [facility], , RLizethNLizeth [place], in [phone] [place], [place] (Work) [address] [place] [address] Social History Tobacco Use Types Packs/Day Years [...]
--- OUTSIDE RECORDS SUMMARY | 2022-03-24 11:49 | XMS_ITS | Encounter Summary ---
:1995 Author Organization [facility] Address [address] [place] [address] Care Team Providers Name Role Phone Unavailable Primary Care Provider Unavailable Reason for Visit Reason Onset Date Comments Outpatient COVID-19 Testing 05/14/2020 Encounter Details Date Type Department Care Team Description 05/14/2020 External Outreach Department of [facility], [place] [facility], In [facility] Medicine in [facility], Respirato ry ([place], [place] C.N.P., D.N.P. Dx) [address] [facility] [address] [place] [address] [place], [place] [phone] [address] Social History Tobacco Use Types Packs/Day Years Used Date Smoking Tobacco: Never Sex Assigned at Date Recorded Not on file documented as of this encounter Progress Notes Virgen Cano R.N. - 05/14/2020 10:04 AM CST Encounter created for the drive-through COVID-19 testing. STANT SURVEYOR documented in this encounter Plan of Treatment Not on filedocumented as of this encounter Procedures Procedure Name Priority Date/Time Associated Diagnosis Comme nts SARS CORONAVIRUS-2 Routine 05/14/2020 11:06 AM Infection Upper Results for this RNA, V ASSISTANT SURVEYOR Respiratory procedure are i n the results section. documented in this encounter Results SARS Coronavirus-2 RNA, V Symptomatic (05/14/2020 11:06 AM ASSISTANT SURVEYOR) [facility] Method Time Signature SARS-CoV-2 Swab, 05/14/2020 MKTO Specimen Nasopharynx 11:30 PM Source ASSISTANT SURVEYOR SARS CoV-2 Undetected Undetected 05/14/2020 SABI RNA, TMA 11:30 PM ASSISTANT SURVEYOR Comment: SARS-CoV-2 RNA absent. This result does not rule out COVID-19 in the patient, as the sensitivity of the test depends o n the timing of the specimen collection and the quality of the specim en. Result should be correlated with patient's history and clinical presentat ion. ----ADDITIONAL INFORMATION---- This test is performed using the Aptima SARS-CoV-2 assay ([employer] which has received Emergency Use Authori zation (EUA) by the U.S. Food and Drug Administration. Fact sheets for this Emergency Use Autho rization (EUA) assay can be found at the following links: For Healthcare Providers: https://www.[employer] a.gov/media/389142/download For Patients: https://www.fda.gov/media/ 327975/download Specimen Anatomical Collection Method Collection Time Receive d Time (Source) Location / / Volume Laterality Varies 05/14/2020 11:06 05/14/2020 5:43 (Nasopharynx) AM ASSISTANT SURVEYOR PM ASSISTANT SURVEYOR Yoshi Sanchez APRN.NJyotsna., D.N.P. LAB MICROBIOLOGY - GENERAL ORDERABLES Performing Organization Address City/State/ZIP Code Phon e Number [facility]- [address] [place] [address] [place] [address] [address] documented in this encounter Visit Diagnoses Diagnosis Infection Upper Respiratory - Primary documented in this encounter Additional Health Concerns Infection Onset Date Last Indicated Resolved Time COVID19 Pending 05/14/2020 05/14/2020 05/14/2020 11:31 PM ASSISTANT SURVEYOR documented as of this encounter
--- OUTSIDE RECORDS SUMMARY | 2022-03-24 11:49 | XMS_ITS | Encounter Summary ---
:1995 Author Organization [facility] Address [address] [place] [address] Care Team Providers Name Role Phone Unavailable Primary Care Provider Unavailable Encounter Details Date Type Department Care Team Description 10/22/2020 Orders Only [facility] PCP [facility] Candido Delacruz Jr., M.D. [facility] [place]osh [place] [phone] (Wo rk) Social History Tobacco Use Types Packs/Day Years Used Date Smoking Tobacco: Never Sex Assigned at Date Recorded Not on file documented as of this encounter Plan of Treatment Not on filedocumented as of this encounter Visit Diagnoses Not on filedocumented in this encounter
--- OUTSIDE RECORDS SUMMARY | 2022-03-24 11:49 | XMS_ITS | Encounter Summary ---
:1995 Author Organization [facility] Address [address] [place] [address] Care Team Providers Name Role Phone Unavailable Primary Care Provider Unavailable Reason for Visit Reason Onset Date Comments Outpatient COVID-19 Testing 04/16/2020 Encounter Details Date Type Department Care Team Description 04/16/2020 External Outreach Department of [facility] ([facility], C.N.P., D.N.P. Dx) [place] [address] [facility] [address] [place] [address] [phone] Social History Tobacco Use Types Packs/Day Years [...] RNA, V Symptomatic (04/16/2020 10:52 AM CDT) [facility] Method Time Signature SARS-CoV-2 Swab, 04/16/2020 MKTO [...] is performed using the Aptima SARS-CoV-2 assay ([employer] which has received Emergency Use Authori zation (EUA) by the U.S. Food and Drug Administration. Fact sheets for this Emergency Use Autho rization (EUA) assay can be found at the following links: For Healthcare Providers: https://www.[employer] a.gov/media/978300/download For Patients: https://www.fda.gov/media/ 090371/download Specimen Anatomical Collection Method Collection Time Receive d Time (Source) Location / / Volume Laterality Varies 04/16/2020 10:52 04/16/2020 3:18 (Nasopharynx) AM CDT PM CDT Maria Luisa Finley APRN C.N.P., D.N.P. LAB [facility] OLOGY - GENERAL ORDERABLES Performing Organization Address City/State/ZIP Code Phon e Number [facility]- [address] [place] [address] [place] [address] System [address] documented in this encounter Visit Diagnoses Diagnosis Infection Upper Respiratory - Primary documented in this encounter Additional Health Concerns Infection Onset Date Last Indicated Resolved Time COVID19 Pending 04/16/2020 04/16/2020 04/16/2020 10:54 PM CDT documented as of this encounter
--- OUTSIDE RECORDS SUMMARY | 2022-03-24 11:49 | XMS_ITS | Encounter Summary ---
:1995 Author Organization [facility] Address [address] [place] [address] Care Team Providers Name Role Phone Unavailable Primary Care Provider Unavailable Encounter Details Date Type Department Care Team Description 01/25/2015 Hospital Encounter HX NO MAPPING Brigette Crump, LUIS, C.N.P. [address] [place], [place] [address] (Wo rk) Social History Tobacco Use Types Packs/Day Years Used Date Smoking Tobacco: Never Assessed Sex Assigned at Date Recorded Not on file documented as of this encounter Miscellaneous Notes Miscellaneous - Conversion, Historical Provider Ser - 01/25/2015 11:59 PM CDT Coding Summary-Paper Based CODING DATE: 02/02/2015 FINAL [facility] STATUS: * Discharged to Home or Self [...] ELI Date Saved: 02/02/2015 09:41 pm Source: [facility] Document Id: [id number] documented in this encounter Plan of Treatment Not on filedocumented as of this encounter Visit Diagnoses Not on filedocumented in this encounter
--- OUTSIDE RECORDS SUMMARY | 2022-03-24 11:49 | XMS_ITS | Encounter Summary ---
:1995 Author Organization [facility] Address [address] [place] [address] Care Team Providers Name Role Phone Unavailable Primary Care Provider Unavailable Encounter Details Date Type Department Care Team Description 01/02/2016 Hospital Encounter HX NO MAPPING Bev Lee, ASSEMBLER METAL FURNITURE, C.N.P., ANTONIO, R.N. Social History Tobacco Use Types Packs/Day Years Used Date Smoking Tobacco: Never Assessed Sex Assigned at Date Recorded Not on file documented as of this encounter Miscellaneous Notes Miscellaneous - Conversion, Historical Provider Ser - 01/02/2016 11:59 PM CDT Coding Summary-Paper Based CODING DATE: 01/14/2016 FINAL [facility] STATUS: * Discharged to Home or Self [...] ESCOBAR Date Saved: 01/14/2016 08:10 am [facility] Document Id: [id number] documented in this encounter Plan of Treatment Not on filedocumented as of this encounter Visit Diagnoses Not on filedocumented in this encounter
--- OUTSIDE RECORDS SUMMARY | 2022-03-24 11:49 | XMS_ITS | Clinical Summary ---
:1995 Author Organization [facility] Address [address] [place] [address] Care Team Providers Name Role Phone Unavailable Primary Care Provider Unavailable Source Comments Patient records contain information from all sites at [facility]. For routine questions regarding patient records, call [phone] during business hours, M-F 8:00 AM - 5:00 PM Central Time. Record requests for emergency care only can be directed to [phone] at any time.[facility] Social History Tobacco Use Types Packs/Day [...] Additional history exists COVID-19 Vaccine (3 - 11/27/2020 10/02/2020, 09/11/2020 Booster for Pfizer series) Depression Screening 06/26/2021 (Annual PHQ-2) Influenza Vaccine (#1) 2022 Hepatitis B Vaccines Completed 06/09/1998, 1995, 1995 HPV Vaccines Completed 09/20/2011, 06/09/2011, 02/10/2010 Pneumococcal vaccine (0-64 Aged Out No lo nger eligible years) based on patient 's age to complete this topic Insurance Payer Benefit Plan Subscriber ID Effective Dates Phone Address Type / Group KRISTYN ESQUEDA [facility] [id number] 2017-Stefany [phone] [address] [address] PPO [facility] [address] [place] [address]
--- OUTSIDE RECORDS SUMMARY | 2022-03-24 11:49 | XMS_ITS | Encounter Summary ---
:1995 Author Organization [facility] Address [address] [place] [address] Care Team Providers Name Role Phone Unavailable Primary Care Provider Unavailable Encounter Details Date Type Department Care Team Description 01/25/2015 Hospital Encounter [facility] Crow Harris APRN, C.N.P. [address] [place] [address] (Wo rk) Social History Tobacco [...] APRN, C.N.P. - 01/25/2015 10:07 AM CDT [id number] CHIEF COMPLAINT/REASON FOR VISIT Discomfort with urination. [...] Will be in the 12th grade at [employer] [employer]. IMMUNIZATIONS: Are reported as up to date. [...] Okay to call the patient's cellphone at [phone]. Preferred pharmacy is [facility]. Continue water and cranberry juice supplementation. Follow [...] HARRIS NP On: 01/26/2015 08:23 PM Source: [facility] Document Id: [id number] documented in this encounter Procedure Notes Perla [...] : Negative Test Strip Lot # : [id number] Test Strip Expiration Date : 12/24/2015 PERLA MOORE - 01/25/2015 10:15 CDT Source: [facility] POWERCHART Document Id: [id number] CDT!16 documented in this encounter Nursing Notes [...] necessary, additional treatment may be started. ?? [phone] Anna Ugarte, [address] [place] [address]. All rights reserved. This information is not intended as a substitute for professional medical care. Always follow your healthcare professional's instructions. This document has images extracted. Please consider using So Protect Me for all your patient education needs. Source: [facility] Document Id: [id number] Brigette Harris APRN, C.N.P. - 01/25/2015 11:10 AM CDT Ambulatory Patient Education The following Patient Education Materials have been given to the patient: Patient Education Materials: Source: [employer] Document Id: [id number] documented in this encounter Miscellaneous Notes Miscellaneous - Perla Moore C.M.A. - 01/25/2015 10:59 AM CDT Pediatric Quality Cloth Tester Intake/History Pediatric Quality Cloth Tester Intake/History Entered On: 01/25/2015 11:02 CDT Performed [...] Preferred Communication Mode : Verbal Languages : Slovak Is Patient Female and 13-50 no hysterectomy [...] MOORE Aravind - 01/25/2015 10:59 CDT Source: [facility] Mevion Medical SystemsCHART Document Id: [id number] CDT!29 documented in this encounter Plan of [...] Culture, Aerobic, Urine (01/25/2015 10:19 AM CDT) [facility] Method Time Signature Bacterial POWERCHART Culture, Aerobic, Urine [facility] Mixed deja. No POWERCHART further studies unless notified. [facility] POWERCHART Microbiology laboratory [phone]. Specimen (Source) Anatomical Collection Method Collection Time Re ceived Time Location / / Volume Laterality Urine, First 01/25/2015 10:19 Voided AM CDT Brigette Harris APRN, C.N.P. LAB MICROBIOLOGY - GENERAL ORDERABLES Performing Organization Address City/State/ZIP Code Phon e Number POWERCHART Ketone, Urine, POCT (01/25/2015 10:15 AM CDT) [facility] Method Time Signature Color Colorless POWERCHART Appearance Cloudy POWERCHART Leukocytes, 3+ Large POWERCHART POCT, U Nitrites, Negative POWERCHART POCT, U Urobilinogen, 0.2 mg/dl POWERCHART POCT, Urine Protein, POCT, Negative POWERCHART U pH, POCT, 7.0 5.0 - 9.0 POWERCHART Urine Blood, POCT, U 2+ MODERATE POWERCHART Specific 1.015 1.000 - POWERCHART [place], POCT, 1.030 U Ketone, POCT, Negative POWERCHART [...]
--- OUTSIDE RECORDS SUMMARY | 2022-03-24 11:49 | XMS_ITS | Clinical Summary ---
:1995 Author Organization [facility] Address [address] [place] [address] Care Team Providers Name Role Phone No [...] Addre ss Type Group [place] [id number] 2020-Stefany [phone] [address] [address] Indemnity t 0 [place] [address] Care Teams Youth Accommodation Support Worker Relationship Specialty Start Date End Date No Ref-Primary, Physician PCP - General 09/12/20
--- OUTSIDE RECORDS SUMMARY | 2022-03-24 11:49 | XMS_ITS | Encounter Summary ---
:1995 Author Organization [facility] Address [address] [place] [address] Care Team Providers Name Role Phone Unavailable Primary Care Provider Unavailable Encounter Details Date Type Department Care Team Description 01/02/2016 Hospital Encounter HX [facility] Gama Lee APRN, C.N.P., [...] APRN, C.N.P. - 01/02/2016 11:10 AM CDT [id number] CHIEF COMPLAINT/REASON FOR VISIT Possible bladder infection. [...] days ago. She has not used any zfwk-rru-xfakegr medications for relief of her symptoms. She [...] APRN, C.N.P./pos Electronically Signed By: GAMA LEE WILDLIFE SCIENCE PROFESSOR On: 01/04/2016 02:55 PM Source: [facility] MHSDOLBEYNONRADSYS Document Id: [id number] documented in this encounter Procedure Notes Lance [...] : Negative Test Strip Lot # : [id number] Test Strip Expiration Date : 12/23/2016 LANCE MOORE - 01/02/2016 11:27 CDT Source: [facility] Document Id: [id number] CDT!16 documented in this encounter Miscellaneous Notes Miscellaneous - Gama Lee APRN, C.N.P. - 01/02/2016 11:43 AM CDT Ambulatory Patient Summary Express Care - [facility] [address] [place], [place] [id number] Visit Information Name: ZUHAIR SIN [facility] Number: [id number] Current Date: 01/02/2016 11:43:46 Physicians [...] x 5 day(s) bladder [facility] [address] [place] [address] norgestimate-ethinyl estradiol (Mononessa) 1 Tablet(s), Oral, once [...] if you dont have one. Go to [email or web address] and click on Create Your Account. Then, follow the directions to complete the online form. Youll be asked for your [facility] number which you can find at the top of this document. Your Goals/Additional instructions: Source: [facility] POWERCHART Document Id: [id number] Miscellaneous - Gama Lee APRN, C.N.P. - 01/02/2016 11:43 AM CDT Ambulatory Discharge Medication List Express [facility] - [address] [phone] Visit Information Name: ZUHAIR SIN [facility] Number: [id number] Visit Date: 01/02/2016 11:43:46 Attending [...] x 5 day(s) bladder [facility] [address] [place], [place] [phone] norgestimate-ethinyl estradiol (Mononessa) 1 Tablet(s), Oral, once [...] 11:43:42 Additional Information: Yes - . Source: [facility] POWERCHART Document Id: [id number] Miscellaneous - Lance Moore, C.M.A. - 01/02/2016 11:36 AM CDT Adult Steno Pool Supervisor Intake/History Adult Steno Pool Supervisor Intake/History Entered On: 01/02/2016 11:40 CDT Performed [...] Preferred Communication Mode : Verbal Languages : Tajik Is Patient Female and 13-50 no hysterectomy [...] LANCE MOORE - 01/02/2016 11:36 CDT Source: [employer] Document Id: [id number] CDT!36 documented in this encounter Plan of [...] Ketone, Urine, POCT (01/02/2016 11:27 AM CDT) [facility] Method Time Signature Color Yellow POWERCHART Appearance Cloudy POWERCHART Leukocytes, 2+ Moderate POWERCHART POCT, U Nitrites, Negative POWERCHART POCT, U Urobilinogen, 0.2 mg/dl POWERCHART POCT, Urine Protein, POCT, 1+ (30 POWERCHART U mg/dl) pH, POCT, 8.0 5.0 - 9.0 POWERCHART Urine Blood, POCT, U 2+ MODERATE POWERCHART Specific 1.015 1.000 - POWERCHART [place], POCT, 1.030 U Ketone, POCT, Negative POWERCHART [...]
--- OUTSIDE RECORDS SUMMARY | 2022-03-24 11:49 | XMS_ITS | Encounter Summary ---
:1995 Author Organization [facility] Address [address] [place] [address] Care Team Providers Name Role Phone Unavailable Primary Care Provider Unavailable Reason for Visit Reason Comments COVID Inquiry Encounter Details Date Type Department Care Team Description 05/14/2020 Clinical Communication Department of Spine WILY KellyID Inquiry in [facility] [address] [place] [address] Social History Tobacco Use Types Packs/Day Years Used Date Smoking Tobacco: Never Sex Assigned at Date Recorded Not on file documented as of this encounter Miscellaneous Notes Telephone Encounter - Alejandro Walsh - 05/14/2020 9:55 AM CST Plan: Endpoint recommendation: Testing indicated, sent patient to [facility] located at [address] [place] [address]. When you arrive in the parking lot, [...] sending patient for testing in T or [facility], an email notification is required. TESTER documented in this encounter Plan of Treatment Not on filedocumented as of this encounter Visit Diagnoses Not on filedocumented in this encounter Additional Health Concerns Infection Onset Date Last Indicated Resolved Time COVID19 Pending 05/14/2020 05/14/2020 05/14/2020 11:31 PM SAND TESTER documented as of this encounter
--- OUTSIDE RECORDS SUMMARY | 2022-03-24 11:50 | XMS_ITS | Encounter Summary ---
:1995 Author Organization [facility] Address [address] [place] [address]. [place] [address] Care Team Providers Name Role Phone No Ref-Primary, Physician Primary Care Provider Reason for Visit Reason Comments Urgent Care Derm Problem full body rash since mon Encounter Details Date Type Department Care Team Description 09/12/2020 Office Visit [facility] Urgent Kenyetta Sawyer Ra sh (Primary Dx) Care Zalma ZAIDA Scanlon [address] [place] [address] [place] [address] (Wo rk) Social History Tobacco [...] Symptoms failing to improve. Kenyetta Sawyer PA-C [facility] Mckeon is a [...] eruption documented in this encounter Care Teams Family Engagement Specialist Relationship Specialty Start Date End Date No Ref-Primary, Physician PCP - General 09/12/20 documented as of this encounter
--- OUTSIDE RECORDS SUMMARY | 2022-03-24 11:50 | XMS_ITS | Encounter Summary ---
:1995 Author Organization [facility] Address [address] [place] [address] Care Team Providers Name Role Phone No Ref-Primary, Physician Primary Care Provider [phone] Encounter Details Date Type Department Care [...] on filedocumented in this encounter Care Teams Cut Press Operator Relationship Specialty Start Date End Date No Ref-Primary, Physician PCP - General 09/12/20 documented as of this encounter
[2022-03-24 16:22] LABS: HCG Quantitative* < 2.39 mIU/mL; Lactate Dehydrogenase* 491 U/L (313-618)
[2022-03-25 12:44] LABS: Alpha Fetoprotein Tumor Marker 2 ng/mL (0-9)
[2022-03-25 15:01] LABS: Beta-hCG Quant Tumor Marker <1 IU/L (0-5)
== END 2022-03-24 15:31 | disposition home or self-care (01) ==
PROVIDERS: PCP Family Medicine; Visit Provider Family Medicine
DX: J98.59 Other diseases of mediastinum, not elsewhere classified (principal)
CPT/HCPCS: 82105; 83615; 84702; 84704

== ENCOUNTER 2022-06-03 13:51 | Outpatient (CLI) | payer BC, SELFPAY ==
--- OUTSIDE RECORDS SUMMARY | 2022-06-03 13:53 | XMS_ITS | Clinical Summary ---
:1995 Author Organization [facility] [place] [address] Care Team Providers Name Role Phone ToryDee Bailey FIGUEREDO Primary Care Provider [phone] Mamie Warren RN Unavailable Allergies No known active allergies Medications Medication Sig Dispensed Refills Start Date End Date Status escitalopram Take 20 mg by 0 02/26/2021 Ac tive oxalate (LEXAPRO) mouth once 20 mg tablet daily. ANTIPYRINE-BENZOCAI 5 drops to qs 0 11/08/2006 05/05/20 2 Discontinued NE 5.4 %-1.4 % EAR affected ear 2 (*Patient states DROPSIndications: up to three no longer Acute serous otitis times daily taking/Not on media as [facility]) spironolactone TAKE 1 TABLET 0 03/27/2021 Discontinued (ALDACTONE) 100 mg BY MOUTH 2 ( *Patient states tablet EVERY DAY no longer WITH WATER taking/No t on sending fa cility list) Active Problems Problem Noted Date Mediastinal mass 05/09/2022 Overview: S/p right VATS, mediastinal mass biopsy performed by Dr. Paulino 05/09/2022 Encounters Date Type Specialty Care Team Description 05/30/2022 Anesthesia Event Adelfo Echols MD 05/30/2022 Surgery Paco Paulino INSERTION RIG HT MARCELO Robin MD DALILA CATHETER 05/30/2022 Hospital Encounter Paco Paulino MD 05/30/2022 Travel 05/26/2022 Telephone [facility] Referral ( [facility] Cancer Placement) 05/16/2022 Telephone Mamie Warren RN 05/12/2022 [facility] Referral ( Other Health Cancer classical Hodg kin lymphoma, unspe cified body region (HC )) 05/12/2022 Telephone Mamie Warren RN 05/09/2022 Anesthesia Event Olaf Schultz MD Sarpal, Rajbir S, MD 05/09/2022 Surgery Mud [place] MD bronchoscopy, r ight video assisted thoracoscopy, b iopsy mediastinal mas s 05/09/2022 - Hospital Encounter Paco Paulino 05/10/2022 MD [place] Discharge Summary - Yoshi Saez PA - 05/11/2022 12:44 PM [facility]ST [facility] SUMMARY [facility] TH[facility] [address], [address] [place] [address] 05/11/2022 Dee Spears, DO [address] / [facility] [address] Re: Linda Sin 1995 [id number] Dates of Hospitalization: 1 07/09/2021 - 05/10/[address] Spears: As you are aware, we had the pleasure of caring for your patient, Ms. Linda Sin here at [facility]. She is a pleasant 27 y.o. female who was admitted for the treatment of Mediast inal mass [J98.59]. Pre-op w /u revealed an anterior mediastinal mass concerning for classic Hodgkin's lymphoma. ??Patient had a CT scan of her chest showing a large anterior mediastinal mass protruding to the right measuring 8.9 x 3.6 x 7.3 cm. ??Patient was evaluated by pulmonary medicine where she underwent pulmonary function test and lab draws with anti- cholinesterase receptor antibody, AFP, beta-h CG, LDH which were reportedl y negative. The patient subsequently underwent a CT-guided biopsy of the anterior mediastinal mass on 04/15/2022 which returned as suspicious for classic non-Hodgkin's lympho ma, though was ultimately no ndiagnostic due to lack of adequate diagnostic cells. ??The patient subsequently underwent a PET/CT scan 04/28/2022 which showed marked PET avidity with a max SUV of 14.6 thro ughout the majority of the a nterior mediastinal mass and no other signs of PET avid lesions. ??Patient was presented at multidisciplinary thoracic tumor board at which time recommendation was for surgic al biopsy to confirm diagnos is of classic non-Hodgkin's lymphoma to guide treatment. Patient now presents for surgical biopsy. On 05/09/2022, Dr. Paulino performed: Diagnostic Flexible Bronchos copy, Diagnostic Right VATS with Incisional Anterior Mediastinal Mass Biospies?? Final Surgical Pathology Rev ealed: A,B) ANTERIOR MEDIASTINAL MA SS, THORASCOPIC BIOPSY: 1. Nodular sclerosis classic Hodgkin lymphoma (cHL)(2016) 2. See comment Her post-operative course wa s fairly unremarkable. Chest tube was removed the morning of POD # 1. She preferred to avoid narcotics and postoperative pain was adequately managed with scheduled Tylenol/Ibuprofen following chest tube removal. Ms. Linda Sin has othe rwise recovered sufficiently to be discharged to home today, 05/10/2022, on post-operative day number 1 for further convalescence. Her incisions are healing well with no sign s or symptoms of infection. Her bowels have moved sufficiently and she is tolerating diet and activity, ambulating and transferring independently. She is currently afebrile with stable vital signs as be low and her weight is stable and trending well to baseline. BP 105/64 (Cuff Size: Adult Regular) Pulse 83 Temp 97.5 ??F (36.4 ??C) Resp 16 Ht 1.549 m (5' 1) Wt 64 kg (141 lb 3.2 oz) LMP 04/2022 (Exact Date) SpO2 96% BMI 26.68 kg/m?? on room air. Below, you will find a full discharge medication list and instructions. Patient prefers postoperative follow up closer to home. Recommend follow up in 7-10 days for repeat chest x-ray and removal of sti tches at chest tube site. We certainly thank you for allowing us to participate in the care of Ms. Linda Sin here at [facility]. Please feel free to contact our office at with any questions o r concerns or if we can be of any further assistance in the care of this patient. Sincerely, Dr. Paco Paulino MD D/C Summary Prepared by: Devon Saez PA-C Discharge Medications: Your Home Medicines CONTINUE taking these medici justin Instructions escitalopram oxalate 20 mg t ablet Commonly known as: LEXAPRO Take 20 mg by mouth once da megan. Past Medical History: Past Medical History: . Date ? ? Anxiety ? ? Mediastinal mass Past Surgical History: . Laterality Date ? ? CT guided mediastinal biopsy 04/15/2022 Arsenio Dudley MD (ANW) ? ? WISDOM TEETH EXTRACTION Discharge Instructions: 1) Daily wound care for surg ical incisions and chest tube site: shower daily and wash incisions with mild soap and water, then dry well. Do not use lotions or ointments on incisions or soak in a tub bat h until incisions have compl etely healed. Please inspect wounds daily and report any new redness, drainage, warmth, or wound tenderness to the surgeon's office at [phone]. 2) No driving while on narco tic pain medication. 3) No lifting greater than 1 5 pounds for 2 weeks. 4) Exercise your arm on affe cted side by gentle motion, such as climbing a wall with your fingers and brushing or combing your hair. 5) Continue daily use of inc entive spirometer 10x in a row, 3-4 times per day while awake for next 2 weeks. 6) Remove Chest Tube dressin g on Monday, May 12 and wash sites as above. May cover with a clean bandaid daily if these sites continue to drain. 7) Remove steri-strips over incision in 1 week. Follow-Up Care: 1) Patient prefers postopera tive follow up closer to home. Follow up with Primary Care Provider, Dee Spears, DO within 7-10 days for repeat chest x-ray and removal of stitches at chest tube site. If you have any quest ions/concerns, please contact Dr. Paulino (Thoracic Surgery) at [phone]. Please call [phone] to arrange this appointment. 2) Our team will coordinate referral to medical oncology. . [employer] 05/09/2022 Travel 05/06/2022 Preop Visit Miriam Odonnell, Preoper ative Exam (DOS 05/09/22) 05/06/2022 Travel 05/05/2022 Telemedicine Paco Paulino virtual appt MD [place] 04/29/2022 Telephone Aislinn Neal RN, Referral (mediastinal BSN Mass) 04/15/2022 Hospital Encounter Ric Dubois MD Ot her diseases of mediastinum, no t elsewhere classified 04/15/2022 Travel 2022 Nurse/Clinic Staff Only Test ing (Pre-procedure COVID test) 2022 Travel from Last 3 Months Immunizations Name Administration Dates Next Due DTaP 02/05/2003, 12/27/1999, 06/09/1998, 1997, 1997 HIB-HepB (Comvax) 06/09/1998, 1997, 1997 Hepatitis A (Peds) 06/09/2011, 09/10/2009 Hepatitis B, Unspecified 06/09/1998, 1997, 1997 Hib Conjugate, Unspecified 06/09/1998, 1997, 7 Human Papilloma Virus Vaccine 09/20/2011, 06/09/2011, 2009 Inactivated Polio Vaccine 02/05/2003, 06/09/1998, 1997 , 1997 MMR 02/05/2003, 07/08/1998 Meningococcal Vaccine (Menactra) 12/25/2015, 02/10/2010 Polio Virus, Unspecified 06/09/1998, 1997, 1997 Tdap 09/10/2009 Varicella Vaccine 09/10/2009, 07/08/1998 Family History Medical History Relation Name Comments Good Health Father Diabetes type II Maternal Grandmother Hypertension Maternal Grandmother Diabetes type II Maternal Uncle Hypertension Maternal Uncle Good Health Mother Cancer-breast Paternal Grandmother Relation Name Status Comments Father Maternal Grandmother Alive Maternal Uncle Mother Paternal Grandmother Social History Tobacco Use Types Packs/Day Years Used Date Never Smoker Smokeless Tobacco: Never Used Comments: Mom smokes outside Alcohol Use Standard Drinks/Week Comments Not Currently 0 (1 standard drink = 0.6 oz pure alcoho l) occasional Alcohol Habits Answer Date Recorded How often do you have a drink containing alcohol? Not asked How many drinks containing alcohol do you have on a typical Not asked day when you are drinking? How often do you have six or more drinks on one occasion? No t asked Comment: occasional 05/05/2022 Sex Assigned at Date Recorded Not on file COVID-19 Exposure Response Date Recorded In the last 10 days, have you been in contact with No / Unsu re 05/30/2022 12:23 PM [employer] someone who was confirmed or suspected to have Coronavirus/COVID-19? Obstetrics History Last Filed Vital Signs Vital Sign Reading Time Taken Comments Blood Pressure 115/77 05/30/2022 4:00 PM [employer] Pulse 94 05/30/2022 4:15 PM [employer] Temperature 36.5 ??C (97.7 ??F) 05/30/2022 4:00 PM [employer] Respiratory Rate 16 05/30/2022 4:00 PM [employer] Oxygen Saturation 97% 05/30/2022 4:15 PM [employer] Inhaled Oxygen Concentration - - Weight 64.4 kg (142 lb) 05/30/2022 1:09 PM [employer] Height 154.9 cm (5' 1) 05/30/2022 1:09 PM [employer] Body Mass Index 26.83 05/30/2022 1:09 PM [employer] Plan of Treatment Upcoming Encounters Date Type Specialty Care Team Description 06/03/2022 Orders Only Health Maintenance Due Date Last Done Comments Pneumococcal series for age 19-64 (1 2003 - PCV) Depression screening for age 12+ 2009 HIV for age 15-65 2012 BMI (ht and wt on same day) for age 1004/12/2015 18+ Hepatitis C screening for age 18-79 2015 Tetanus booster 09/11/2019 09/10/2009 COVID-19 vaccine series (3 - Pfizer 10/30/2020 10/02/2020, 09/11/2020 risk series) Influenza for age 9-49 02/24/2022 Pap test for age 21-65 02/04/2025 02/04/2022 Tdap Completed 09/10/2009 HPV series for age 9-26 Completed 09/20/2011, 06/09/2011, 02/10/2010 Medical Devices Implanted Type Area Cook Chef Device Shelf Model / Identifier Expiration Serial / Date Lot Port 8fr Powerport Clearvue Slim Micro Intrdcr Silcn - [id number] Right: Bard Peripheral 02/23/2023 [id number] / Implanted: Qty: 1 on 05/30/2022 by Curt rinaldi, Paco Robin MD at [facility] [employer] / [id number] Description: see implant sheet Procedures Procedure Name Priority Date/Time Associated Comments Diagnosis XR CHEST 1 VIEW BOBBY 05/30/2022 3:40 Results f or this PORTABLE PM [employer] procedure are i n the results section. XR C-ARM CVAD Routine 05/30/2022 2:44 Results for this PM [employer] procedure are i n the results section. SUPRAGLOTTIC-LMA Routine 05/30/2022 2:16 Results for this PM [employer] procedure are i n the results section. INSERTION DALILA Class E Urgent 05/30/2022 1:33 HODGKIN'S LYMPHOMA CATHETER PM [employer] URINE Preop 05/30/2022 1:00 Results f or this PM [employer] procedure are i n the results section. XR CHEST 1 VIEW Routine 05/10/2022 5:09 Results f or this PORTABLE AM [employer] procedure are i n the results section. XR CHEST 1 VIEW STAT 05/09/2022 5:21 Results f or this PORTABLE PM [employer] procedure are i n the results section. PATH TISSUE EXAM Today 05/09/2022 4:07 Results for this PM [employer] procedure are i n the results section. OR IMAGE CAPTURE Routine 05/09/2022 4:05 PM [employer] ENDOTRACHEAL TUBE Routine 05/09/2022 4:01 Results for this PM [employer] procedure are i n the results section. ENDOTRACHEAL TUBE Routine 05/09/2022 4:01 Results for this PM [employer] procedure are i n the results section. BRONCHOSCOPY Tier 2 05/09/2022 3:17 Mediastinal mass PM [employer] Special Needs WT 140 THORACOSCOPY Tier 2 05/09/2022 3:17 PM [employer] Mediastinal mass Special Needs WT 140 TYPE & SCREEN Preop 05/09/2022 12:21 PM Results for this [employer] procedure are i n the results section. CBC WITH AUTO Preop 05/09/2022 12:21 PM Results for this DIFFERENTIAL [employer] procedure are i n the results section. PROTIME-INR Preop 05/09/2022 12:21 PM Results for this [employer] procedure are i n the results section. CREATININE Preop 05/09/2022 12:21 PM Results for this [employer] procedure are i n the results section. BUN Preop 05/09/2022 12:21 PM Results for this [employer] procedure are i n the results section. POTASSIUM Preop 05/09/2022 12:21 PM Results for this [employer] procedure are i n the results section. CBC WITH AUTO Preop 05/09/2022 12:21 PM Results for this DIFFERENTIAL [employer] procedure are i n the results section. URINALYSIS STAT 05/09/2022 11:47 AM Results for this MICROSCOPIC [employer] procedure are i n the results section. URINE Preop 05/09/2022 11:47 AM Resul ts for this [employer] procedure are i n the results section. UA W/ SEDIMENT EXAM Preop 05/09/2022 11:47 AM R esults for this REFLEXED PER CRITERIA [employer] proced ure are in the results section. SCAN-CARDIAC STRIP 05/09/2022 12:00 AM Re sults for this [employer] procedure are i n the results section. COVID 19 Routine 05/06/2022 1:17 PM Pre-op evaluation Resu lts for this [employer] procedure are i n the results section. COVID 19 COLLECTION Routine 05/06/2022 1:17 PM Pre-op evaluati on Results for this [employer] procedure are i n the results section. XR CHEST 1 VIEW PA OR Routine 04/15/2022 2:36 PM Results for this AP CDT procedure are i n the results section. XR CHEST 1 VIEW PA OR Routine 04/15/2022 12:29 PM Results for this AP CDT procedure are i n the results section. PATH FNA CYTOLOGY ASP Today 04/15/2022 12:16 PM Results for this CYTOLOGY CDT procedure are i n the results section. CT BIOPSY MEDIASTINUM Routine 04/15/2022 12:15 PM Other diseas es of Results for this CDT mediastinum, not procedure a re in elsewhere the results classified section. ,SERUM Preop 04/15/2022 10:26 AM Resul ts for this CDT procedure are i n the results section. HEMOGLOBIN STAT 04/15/2022 10:26 AM Results for this CDT procedure are i n the results section. PLATELET COUNT STAT 04/15/2022 10:26 AM Result s for this CDT procedure are i n the results section. PROTIME-INR STAT 04/15/2022 10:26 AM Results for this CDT procedure are i n the results section. COVID 19 Routine 2022 2:48 PM Encounter for Results for this CDT pre-operative procedure are in laboratory testing the resul ts section. COVID 19 COLLECTION Routine 2022 2:48 PM Encounter for R esults for this CDT pre-operative procedure are in laboratory testing the resul ts section. from Last 3 Months Results XR CHEST 1 VIEW PORTABLE (05/30/2022 3:40 PM [employer])Only the most recent of3 resultswithin the time period is included. Anatomical Region Laterality Modality HEART, THORAX, CHEST Digital Radiography Specimen (Source) Anatomical Collection Method Collection Time Re ceived Time Location / / Volume Laterality 05/30/2022 3:56 PM [employer] Narrative 05/30/2022 3:56 PM [employer] For Patients: ??As a result of the Cures Act, medical imaging exams and procedure report s are released immediately into your [facility] medical record. ??You may view this report before your referring provider. ??If you have questions, please contact your health care provider. INDICATION: Postprocedure. COMPARISON: Chest x-ray dated 10 May 2022. FINDINGS: A single portable chest x-ray shows a ri ght-sided Port-A-Cath with the distal tip overlying the distal portion of the SVC. Normal cardiac silhouette. The lungs janeen w no focal pulmonary opacities. Sharp pleural margins. No pneumothorax. Impression : 1. No evidence of acute pulmonary abnorm alities. Dictated by Bebo Bajwa MD @ May ??5 2 022 ??3:56PM (Electronically Signed) ?? Procedure Note Bebo Bajwa MD - 05/30/2022Forma tting of this note might be different from the original. For Patients: As a result of the Cures Act, medical imaging exams and procedure reports are released immediately into your electronic medical record. You may view this report before your referring provider. If you have questions, please contact [facility] care provider. INDICATION: Postprocedure. COMPARISON: Chest x-ray dated 10 May 2022. FINDINGS: A single portable chest x-ray shows a ri ght-sided Port-A-Cath with the distal tip overlying the distal portion of the SVC. Normal cardiac silhouette. The lungs janeen w no focal pulmonary opacities. Sharp pleural margins. No pneumothorax. Impression : 1. No evidence of acute pulmonary abnorm alities. Dictated by Bebo Bajwa MD @ May 30 2 3:56PM (Electronically Signed) Gianna [facility] XR C-ARM CVAD (05/30/2022 2:44 PM [employer]) Anatomical Region Laterality Modality Digital Radiography Specimen (Source) Anatomical Collection Method Collection Time Re ceived Time Location / / Volume Laterality 05/30/2022 3:21 PM [employer] Narrative 05/30/2022 3:21 PM [employer] For Patients: ??As a result of the Cures Act, medical imaging exams and procedure report s are released immediately into your [facility] medical record. ??You may view this report before your referring provider. ??If you have questions, please contact your health care provider. INDICATION: Port-A-Cath placement. FINDINGS: A single coned-down view of the central chest shows a right-sided Port-A-Cath with the distal tip overlying the distal portion of the SVC. 31 seconds of fluoro time. Dictated by Bebo Bajwa MD @ May ??5 2 022 ??3:21PM (Electronically Signed) ?? Procedure Note Bebo Bajwa MD - 05/30/2022Forma tting of this note might be different from the original. For Patients: As a result of the Cures Act, medical imaging exams and procedure reports are released immediately into your electronic medical record. You may view this report before your referring provider. If you have questions, please contact [facility] care provider. INDICATION: Port-A-Cath placement. FINDINGS: A single coned-down view of the central chest shows a right-sided Port-A-Cath with the distal tip overlying the distal portion of the SVC. 31 seconds of fluoro time. Dictated by Bebo Bajwa MD @ Dec 5 202 2 3:21PM (Electronically Signed) Paco Paulino MD FLUOROSCOPY Supraglottic (05/30/2022 2:16 PM [employer]) Narrative Samaria Dorman CRNA Student - 05/30 2:16 PM [employer] Samaria Dorman CRNA Student ? 05/30/2022 ??2:16 PM Procedure: Supraglottic Patient location during procedure: OR Supraglottic Airway Properties Mask Ventilation: easy Type: unique Tube Size: 3 Insertion Attempts: 1 Placement Verification: CO2 detection Assessment Assessment: atraumatic and dentition unc hanged Electronically signed by Samaria Dorman CRNA Student ? Adelfo Echols MD ANESTHESIA PX NOTE ORDERABLE S Urine (05/30/2022 1:00 PM [employer])Only the most recent of2 resultswithin the time period is included. Analysis Performed At Patho logist Time Signature ,URIN Negative Negative 05/30/2022 [facility] 1:15 PM [facility] Specimen Anatomical Collection Method Collection Time Receive d Time (Source) Location / / Volume Laterality Urine URINE SPECIMEN / Non-Blood / 05/30/2022 1:00 PM 05/30 1:09 Unknown Unknown [employer] [employer] PM [employer] Eunice JOY URINE Performing Organization Address City/State/ZIP Code Phon e Number [facility] [address] [place] [address] LABORATORY-[facility] 2000 LABORATORY PATH TISSUE EXAM (05/09/2022 4:07 PM [employer]) Component Value Ref Test Analysis Performed Pathologis t Range Method Time At Signature Case Report Pathology Report ?Case: [id number] ? [facility] Authorizing Provider: ??Paco Ghotra MD Collected: ? 05/09/2022 1607 ? 2 5:57 PM HEALTH Ordering Location: ? [facility] ?Received: ?05/09/2022 1612 ? [facility] [place] [facility]- ? Hospital ? CENTRAL Pathologist: ? Lilian Bustillos MD ? LABORATORY Specimens: ?? A) - Mediastin al Mass, anterior mediastinal mass, frozen ? B) - Medi astinal Mass, anterior mediastinal mass, lymphoma protocol ? Final Diagnosis A,B) ANTERIOR MEDIASTINAL MASS, THORASCOPIC BIOPSY: [facility] Electronically 1. Nodular sclerosis classic Hodgkin lymphoma (cHL)(2016) 2 5:57 PM HEALTH signed by 2. See comment [facility]- Whe Lilian reyes MD on LABORATORY 2 at 5:[address] Bustillos discussed the re sults of this case with Dr. Ric Dubois on 05/11/2022. [facility] 2 5:57 PM HEALTH Case seen in consultation Dr. Cullen. [facility]- [facility] Clinical The patient is a [facility] Information 27-year-old female 2 5:57 PM HEALTH with a PET/CT scan [facility]- noting a FDG avid 7.5 CENTRAL x 6.5 x 4.2 cm right LABORATOR Y anterior mediastinal mass (04/28/2022). A CT-guided biopsy was suspicious but not conclusive for classical Hodgkin lymphoma with a recommendation for additional tissue procurement ([id number], 05/16/2022). She undergoes a thorascopic biopsy of the mediastinal mass. Gross A) Received fresh labeled wi th the patient's name and anterior mediastinal mass, is 1 mei-pink tissue remnant, measuring 0.3 cm in greatest dimension. ??1 H&E and 1 Diff-Quik slide is procured for [facility] Description intraoperative consultation . ??The remaining tissue is submitted entirely in 1 cassette. 2 5:57 PM HEALTH [facility]- Time and date in formalin: 163 on 05/09/2022 [facility]AL LABORATORY JAL 05/09/2022 B) Received fresh, labeled w ith the patient's name and anterior mediastinal mass, lymphoma protocol, is a 1.2 x 1.0 x 0.4 cm fragmented possible becky tissue aggregate. Touch imprints are performed and stained. Four airdried touch imprints are forwarded to cytogenetics for hold. Fresh tissue in RPMI is forwarded to the flow cytometry lab to hold. The specimen is entirely submitted: 1. ??B-plus tissue 2-3. ??Remainder of specimen formalin fixed JAL 05/09/2022 Intraoperative A) ANTERIOR MEDIASTINAL MASS , INTRAOPERATIVE CONSULTATION WITH CYTOLOGY PREPARATION: [facility] Consultation 1. Diagnostic tissue present, will triage for lymphoma protocol 2 5:57 PM HEALTH 2. Diagnosis pending immunohistochemical stains on permane nt sections [facility]- [facility] João Saab MD, 05/09/2022 4:26 PM LABORATORY Intraoperative consultation, which may have included frozen section preparation, gross specimen examination, and/or cytology touch imprints/smears, was performed by a pathologist during the surgical procedure. ??This testing was performed at: [facility] ?? [address] [place] [address] [place] [address] Microscopic A,B) The biopsies consist of lymphoid tissue with moderate sclerosis. Both biopsies represent samples from the anterior mediastinal mass and show similar features. Part B is the larger of the 2 samples. [facility] Description The lymphoid tissue consist s predominantly of small mature- appearing T-cell lymphocytes amongst which are scattered medium to large-size atypical lymphocytes with lacunar features (formalin fixation 2 5:57 PM HEALTH artifact). The atypical cell s appear predominantly monolobate, however, some are larger with prominent macronucleoli. [facility]- [facility]AL Immunostains were performed to further evaluate the atypical cell population which exhibits the following immunostaining pattern (block B3): LABORATORY CD45: ??Negative CD3: ?? Negative ?? CD20: ??Negative CD79a: Negative CD30: ??Positive CD15: ??Positive in a subset PAX5: ??Weak positive MUM1: ??Positive, strong Bcl-6: Variably positive CD10: ??Negative CD23: ??Negative EBV in situ: Negative Support for the interpretati on of this case may have included the use of immunohistochemistry and/or in situ hybridization tests that were performed by [facility] and whose performance characteristics were evaluat ed by pathologists from [facility]. These tests have not been cleared or approved by the U.S. Food and Drug Administration. The FDA has determined that suc h clearance or approval is n ot necessary. These tests are used for clinical purposes and should not be regarded as investigational or for research. This laboratory is certified under the Clinical Labora tory Improvement Amendments of 1988 (CLIA) as qualified to perform high complexity clinical laboratory testing. Additional [facility] Information [facility] Laboratory - [address] [facility] [address], [place] [address] 2 5:57 PM [facility]ALTH [facility] LABORATORY- CENTRAL LABORATORY Specimen Anatomical Collection Method Collection Time Receive d Time (Source) Location / / Volume Laterality Tissue 05/09/2022 4:07 PM 2 4:12 (Mediastinal SUPERVISOR PAINT PM SUPERVISOR PAINT Mass) Tissue specimen 05/09/2022 4:24 PM 2021 4:29 (specimen) SUPERVISOR PAINT PM SUPERVISOR PAINT (Mediastinal Mass) Paco Paulino MD PATHOLOGY/CYTOLOGY Performing Organization Address City/State/ZIP Code Phon e Number [facility] [address] [place] [address] LABORATORY-CENTRAL 2000 LABORATORY HCHG TUBE TRACH PR40, HCHG STYLET PR1 (05/09/2022 4:01 PM SUPERVISOR PAINT) Narrative Lloyd Green CRNA - 05/09/2022 4:0 1 PM SUPERVISOR PAINT Lloyd Green CRNA ? 05/09/2022 ??4:01 PM Procedure: ETT Patient location during procedure: OR ETT Properties Mask Ventilation: easy Final Technique: direct laryngoscopy Type: ETT - double lumen left Location: oral Cuffed: yes Stylet: yes Laryngoscope Blade: Park Blade Size: 2 Cormack-Lehane Grade View: 1 Insertion Attempts: 1 Placement Verification: auscultation, en d tidal CO2, symmetrical chest wall movement and fiber optic visualizat ion Assessment: pharynx clear, atraumatic an d dentition unchanged Secured at: other (comment) (27) Measured From: teeth Difficulty: 0 (not difficult) Tube Size: 35 Fr Electronically signed by Lloyd Green CRNA ? Olaf Schultz MD ANESTHESIA PX NOTE ORDERABLE S (ABNORMAL) CBC WITH AUTO DIFFERENTIAL (05/09/2022 12:21 PM SUPERVISOR PAINT) [facility] Method Time Signature WHITE BLOOD 4.7 4.5 - 05/09/2022 [facility] COUNT 11.0 12:51 PM SUPERVISOR PAINT LABORATORY-[facility] thou/cu TRAL mm LABORATORY RED BLOOD COUNT 3.87 (L) 4.00 - 05/09/2022 [facility] 5.20 12:51 PM SUPERVISOR PAINT LAB[facility]ATORY-[facility] mil/cu mm TRAL LABORATORY HEMOGLOBIN 12.6 12.0 - 05/09/2022 [facility] 16.0 g/dL 12:51 PM SUPERVISOR PAINT LAB[facility] TRAL LABORATORY HEMATOCRIT 36.5 33.0 - 05/09/2022 [facility] 51.0 % 12:51 PM SUPERVISOR PAINT LAB[facility] TRAL LABORATORY MCV 94 80 - 100 05/09/2022 [facility] fL 12:51 PM [facility]PER[facility]OR PAINT [facility] TRAL LABORATORY MCH 32.6 26.0 - 05/09/2022 [facility] 34.0 pg 12:51 PM SUPERVISOR PAINT [facility] TRAL LABORATORY MCHC 34.5 32.0 - 05/09/2022 [facility] 36.0 g/dL 12:51 PM SUPERVISOR PAINT [facility] TRAL LABORATORY RDW 12.0 11.5 - 05/09/2022 [facility] 15.5 % 12:51 PM [facility] PAINT [facility] TRAL LABORATORY PLATELET COUNT 186 140 - 440 05/09/2022 [facility] thou/cu 12:51 PM SUPERVISOR PAINT [facility] mm TRAL LABORATORY MPV 12.1 (H) 6.5 - 05/09/2022 [facility] 11.0 fL 12:51 PM SUPERVISOR PAINT [facility] TRAL LABORATORY NRBC 0.0 % 05/09/2022 [facility] 12:51 PM [facility] PAINT [facility] TRAL LABORATORY ABS NRBC 0.0 thou /cu 05/09/2022 [facility] mm 12:51 PM SUPERVISOR PAINT [facility] TRAL LABORATORY % NEUT 71.9 % 05/09/2022 [facility] 12:51 PM [facility] PAINT [facility] TRAL LABORATORY % LYMPH 18.0 % 05/09/2022 [facility] 12:51 PM SUPER[facility] PAINT [facility] TRAL LABORATORY % MONO 7.2 % 05/09/2022 [facility] 12:51 PM SUPER[facility] PAINT [facility] TRAL LABORATORY % EOS 1.9 % 05/09/2022 [facility] 12:51 PM [facility] PAINT [facility] TRAL LABORATORY % BASO 0.6 % 05/09/2022 [facility] 12:51 PM [facility]PER[facility] PAINT [facility] TRAL LABORATORY % IMMATURE GRAN 0.4 % 05/09/2022 [facility] (METAS,MYELOS,[place] 12:51 PM SUPERVISOR PAINT LABORATORY -[facility] OS) TRAL LABORATORY ABSOLUTE 3.4 1.7 - 7.0 05/09/2022 [facility] NEUTROPHILS thou/cu 12:51 PM SUPERVISOR PAINT LAB[facility]ATORY-[facility] mm TRAL LABORATORY ABSOLUTE 0.9 0.9 - 2.9 05/09/2022 [facility] LYMPHOCYTES thou/cu 12:51 PM SUPERVISOR PAINT [facility] mm TRAL LABORATORY ABSOLUTE 0.3 <0.9 05/09/2022 [facility] MONOCYTES thou/cu 12:51 PM SUPERVISOR PAINT LAB[facility] mm TRAL LABORATORY ABSOLUTE 0.1 <0.5 05/09/2022 [facility] EOSINOPHILS thou/cu 12:51 PM SUPERVISOR PAINT LAB[facility] mm TRAL LABORATORY ABSOLUTE 0.0 <0.3 05/09/2022 [facility] BASOPHILS thou/cu 12:51 PM SUPERVISOR PAINT LAB[facility] mm TRAL LABORATORY ABSOLUTE 0.0 <0.3 05/09/2022 [facility] IMMATURE thou/cu 12:51 PM SUPERVISOR PAINT LAB[facility]ATORY-[facility] GRANULOCYTES(MET mm TRAL ,MYELOS,PROS) LABORATORY Specimen Anatomical Collection Method / Collection Time Recei ángel Time (Source) Location / Volume Laterality Blood BLOOD SPECIMEN / Venipuncture / 05/09/2022 12:21 05/09 Unknown Unknown PM SUPERVISOR PAINT 12:31 PM SUPERVISOR PAINT Paco Paulino MD HEMATOLOGY Performing Organization Address City/State/ZIP Code Phon e Number [facility] [address] [place] [address] LABORATORY-CENTRAL 1999 LABORATORY Type and Screen (05/09/2022 12:21 PM SUPERVISOR PAINT) [facility] Method Time Signature ABORH A Rh 05/09/2022 [facility] Positive 1:29 PM SUPERVISOR PAINT LAB-CENTRAL LAB BLOOD BANK ANTIBODY Negative Negative 05/09/2022 [facility] SCREEN 1:29 PM SUPERVISOR PAINT LAB-CENTRAL LAB BLOOD BANK SPECIMEN 05/12/22 05/09/2022 [facility] EXPIRATION 23:59 1:29 PM SUPERVISOR PAINT LAB-CENTRAL DATE/TIME LAB BLOOD BANK Specimen Anatomical Collection Method / Collection Time Recei ángel Time (Source) Location / Volume Laterality Blood BLOOD SPECIMEN / Venipuncture / 05/09/2022 12:21 11/14 /2022 Unknown Unknown PM SUPERVISOR PAINT 12:31 PM SUPERVISOR PAINT Paco Paulino MD BLOOD BANK Performing Organization Address City/State/ZIP Code Phon e Number [facility] LAB-CENTRAL LAB [address] [place] [address] 5 [phone] BLOOD BANK BUN (05/09/2022 12:21 PM SUPERVISOR PAINT) athologist Signature BUN 11 8 - 25 05/09/2022 [facility] mg/dL 1:32 PM SUPERVISOR PAINT LABORATORY-CENTR AL LABORATORY Specimen Anatomical Collection Method / Collection Time Recei ángel Time (Source) Location / Volume Laterality Blood BLOOD SPECIMEN / Venipuncture / 05/09/2022 12:21 05/09 Unknown Unknown PM SUPERVISOR PAINT 12:31 PM SUPERVISOR PAINT Paco Paulino MD CHEMISTRY Performing Organization Address City/[facility]/ZIP Code Phon e Number [facility] [address] [place] [address] LABORATORY-CENTRAL 2000 LABORATORY Potassium (05/09/2022 12:21 PM SUPERVISOR PAINT) athologist Signature POTASSIUM 4.3 3.5 - 5.0 05/09/2022 [facility] mmol/L 1:27 PM SUPERVISOR PAINT LABORATORY-CENTR AL LABORATORY Specimen Anatomical Collection Method / Collection Time Recei ángel Time (Source) Location / Volume Laterality Blood BLOOD SPECIMEN / Venipuncture / 05/09/2022 12:21 05/09 Unknown Unknown PM SUPERVISOR PAINT 12:31 PM SUPERVISOR PAINT Paco Paulino MD CHEMISTRY Performing Organization Address City/[facility]/ZIP Code Phon e Number [facility] [address] [place] [address] [place] [address] LABORATORY-CENTRAL 2000 LABORATORY Creatinine (05/09/2022 12:21 PM SUPERVISOR PAINT) athologist Signature CREATININE 0.66 0.57 - 1.11 05/09/2022 [facility] mg/dL 1:31 PM SUPERVISOR PAINT LABORATORY-CENT RAL LABORATORY eGFR >90 >90 05/09/2022 [facility] mL/min/1.73 1:31 PM SUPERVISOR PAINT LABORATORY-CENT m2 RAL LABORATORY Comment: As of 2021, eGFR is calcu lated by the CKD-EPI creatinine equation without race adjustment. eGFR can be inf luenced by muscle mass, exercise, and diet. The reported eGFR is an estimation only and is only applicable if the renal function is stable. Specimen Anatomical Collection Method / Collection Time Recei ángel Time (Source) Location / Volume Laterality Blood BLOOD SPECIMEN / Venipuncture / 05/09/2022 12:21 05/09 Unknown Unknown PM SUPERVISOR PAINT 12:31 PM SUPERVISOR PAINT Paco Paulino MD CHEMISTRY Performing Organization Address City/[facility]/ZIP Code Phon e Number [facility] [address] [facility] [address] LABORATORY-CENTRAL [facility] LABORATORY (ABNORMAL) Protime - INR (05/09/2022 12:21 PM SUPERVISOR PAINT)Only the most recent of2 resultswithin the time period is included. athologist Signature INR 1.1 <1.3 05/09/2022 [facility] 1:09 PM SUPERVISOR PAINT LABORATORY-[facility] LABORATORY PROTIME 14.3 (H) 12.0 - 13.8 05/09/2022 [facility] sec 1:09 PM SUPERVISOR PAINT LABORATORY-[facility] LABORATORY Specimen Anatomical Collection Method / Collection Time Recei ángel Time (Source) Location / Volume Laterality Blood BLOOD SPECIMEN / Venipuncture / 05/09/2022 12:21 05/09 Unknown Unknown PM SUPERVISOR PAINT 12:31 PM SUPERVISOR PAINT Narrative [facility] LABORATORY-CENTRAL LABORAT ORY - 05/09/2022 1:09 PM SUPERVISOR PAINT ?Therapeutic Range 2.0-3.0 for most anticoagulated patients 2.5-3.5 or 4.0 for high risk patients The INR is only used for patients on sta ble oral anticoagulant therapy. It makes no significant contribution to the diagnosis or treatment of patients whose Protime is prolonged f or other reasons. INR results are increased when heparin l evels exceed 1.0 U/mL, which corresponds to an aPTT >125 seconds if the patient is on UFH. Paco Paulino MD HEMATOLOGY Performing Organization Address [facility]/ZIP Code Phon e Number [facility] [address] [facility] [place] [address] LABORATORY-CENTRAL 2000 LABORATORY URINALYSIS MICROSCOPIC (05/09/2022 11:47 AM SUPERVISOR PAINT) athologist Signature RBC 0-2 0-2, None 05/10/2022 [facility] Seen /HPF 7:46 AM SUPERVISOR PAINT LABORATORY-CENT RAL LABORATORY WBC 0-2 0-2, 3-5, 05/10/2022 [facility] None Seen 7:46 AM SUPERVISOR PAINT LABORATORY-CENT /HPF RAL LABORATORY BACTERIA Rare None Seen, 05/10/2022 [facility] Rare, Few 7:46 AM SUPERVISOR PAINT LABORATORY-CENT Bacteria/H RAL LABORATORY PF EPITHELIAL Few None Seen, 05/10/2022 [facility] CELLS Few 7:46 AM SUPERVISOR PAINT LABORATORY-CENT Epi/HPF RAL LABORATORY Specimen Anatomical Collection Method Collection Time Receive d Time (Source) Location / / Volume Laterality Urine URINE SPECIMEN / Add On / Unknown 05/09/2022 11:47 6:36 Unknown AM SUPERVISOR PAINT AM SUPERVISOR PAINT Paco Paulino MD URINE Performing Organization Address City/State/ZIP Code Phon e Number [facility] [address] [place] [address] LABORATORY-CENTRAL 2000 LABORATORY (ABNORMAL) Urinalysis with Reflex Microscopic if Positive (05/09/2022 11:47 AM SUPERVISOR PAINT) [facility] Method Time Signature COLOR Yellow Yellow Color 05/10/2022 [facility] 7:46 AM SUPERVISOR PAINT LABORATORY-CE NTRAL LABORATORY CLARITY Clear Clear 05/10/2022 [facility] Clarity 7:46 AM SUPERVISOR PAINT LABORATORY-CE NTRAL LABORATORY SPECIFIC <=1.005 (A) 1.010, 05/10/2022 [facility] GRAVITY,URINE 1.015, 7:46 AM SUPERVISOR PAINT LABORATORY-CE 1.020, 1.025 NTRAL LABORATORY PH,URINE 7.0 6.0, 7.0, 05/10/2022 [facility] 8.0, 5.5, 7:46 AM SUPERVISOR PAINT LABORATORY-CE 6.5, 7.5, NTRAL 8.5 LABORATORY UROBILINOGEN, Normal Normal EU/dl [facility]/10[facility]20[facility]46 [facility] SUPERVISOR PAINT LABORATORY-CE NTRAL LABORATORY PROTEIN, Negative Negative 05/10/2022 [facility] URINE mg/dL 7:46 AM SUPERVISOR PAINT LABORATORY-CE NTRAL LABORATORY GLUCOSE, Negative Negative 05/10/2022 [facility] URINE mg/dL 7:46 AM SUPERVISOR PAINT LABORATORY-CE NTRAL LABORATORY KETONES,URINE Negative Negative 05/10/2022 [facility] mg/dL 7:46 AM SUPERVISOR PAINT LABORATORY-CE NTRAL LABORATORY BILIRUBIN,URI Negative Negative 05/10/2022 [facility] NE 7:46 AM SUPERVISOR PAINT LABORATORY-CE NTRAL LABORATORY OCCULT Trace (A) Negative 05/10/2022 [facility] BLOOD,URINE 7:46 AM SUPERVISOR PAINT LABORATORY-CE NTRAL LABORATORY NITRITE Negative Negative 05/10/2022 [facility] 7:46 AM SUPERVISOR PAINT LABORATORY-CE NTRAL LABORATORY LEUKOCYTE Negative Negative 05/10/2022 [facility] ESTERASE 7:46 AM SUPERVISOR PAINT LABORATORY-CE NTRAL LABORATORY Specimen Anatomical Collection Method Collection Time Receive d Time (Source) Location / / Volume Laterality Urine URINE SPECIMEN / Add On / Unknown 05/09/2022 11:47 6:36 Unknown AM SUPERVISOR PAINT AM SUPERVISOR PAINT Paco Paulino MD URINE Performing Organization Address City/State/ZIP Code Phon e Number [facility] [address] [place] [address] LABORATORY-CENTRAL 2000 LABORATORY SCAN-CARDIAC STRIP (05/09/2022 12:00 AM SUPERVISOR PAINT) Narrative 05/09/2022 12:00 AM SUPERVISOR PAINT This result has an attachment that is no t available. Ordered by an unspecified provider. Other Clinical Staff OTHER COVID 19 (05/06/2022 1:17 PM SUPERVISOR PAINT) Analysis Performed At Patho logist Time Signature COVID 19 Negative Negative 05/07/2022 [facility] 4:34 PM SUPERVISOR PAINT LABORATORY-[facility] MOLECULAR TRAL LABORATORY Specimen Anatomical Location / Collection Method Collection [place] e Received Time (Source) Laterality / Volume Other SPECIMEN FROM Non-Blood / 05/06/2022 1:17 05/07/2022 7:08 NASOPHARYNGEAL Unknown PM SUPERVISOR PAINT AM SUPERVISOR PAINT STRUCTURE / Unknown Narrative [facility] LABORATORY-CENTRAL LABORAT ORY - 05/07/2022 4:34 PM SUPERVISOR PAINT All PCR tests are subject to false negative result due to variability in viral load and collection te chnique. A negative result does not rule out a SARS-CoV-2 infection. Clinical correlation required. This test has been authorized by FDA und er an Emergency Use Authorization (EUA). This test is only authorized for the duration of time the declaration that circumstances exist justifying the authorizati on of the emergency use of in vitro diag nostic tests for detection of SARS-CoV-2 virus and/or diagnosis of COVID-19 infection under section 564(b)(1) of the Act, 21 U.S.C. 360bbb-3(b) (1), unless the authorization is terminated or revoked sooner. Miriam Odonnell MD MICROBIOLOGY Performing Organization Address City/State/ZIP Code Phon e Number [facility] [address] [place] [address] LABORATORY-CENTRAL 2000 LABORATORY COVID 19 COLLECTION (05/06/2022 1:17 PM SUPERVISOR PAINT)Only the most recent of2 results within the time period is included. [facility] Method Time Signature TESTING [facility] 05/07/2022 [facility] LABORATORY Laboratory 7:09 AM SUPERVISOR PAINT LABORATORY-CE NTRAL LABORATORY Comment: Specimen submitted to [facility] for testing. Specimen Anatomical Location / Collection Method Collection [place] e Received Time (Source) Laterality / Volume Other SPECIMEN FROM Non-Blood / 05/06/2022 1:17 05/06/2022 2:01 NASOPHARYNGEAL Unknown PM SUPERVISOR PAINT PM SUPERVISOR PAINT STRUCTURE / Unknown Miriam Odonnell MD SEND OUTS Performing Organization Address City/State/ZIP Code Phon e Number [facility] [address] [place] [address] LABORATORY-CENTRAL 2000 LABORATORY XR CHEST 1 VIEW PA OR AP (04/15/2022 2:36 PM CDT)Only the most recent of2 resultswithin the time period is included. Anatomical Region Laterality Modality CHEST, THORAX, Lung, HEART Digital Radio graphy Specimen (Source) Anatomical Collection Method Collection Time Re ceived Time Location / / Volume Laterality 04/15/2022 2:45 PM CDT Narrative 04/15/2022 2:45 PM CDT For Patients: ??As a result of the Cures Act, medical imaging exams and procedure report s are released immediately into your [facility] medical record. ??You may view this report before your referring provider. ??If you have questions, please contact your health care provider. HISTORY: Post mediastinal biopsy. COMPARISON: Chest one view, 04/15/2022, at 12:35 p.m . Technique: Chest one view. Findings: No pneumothorax is identified. There is no shift of mediastinal structures. The mediastinal mass is unchanged. Heart size and pulmonary vasculature are normal. Pleural spaces are within normal limits. The osseous structures are intact. Impression: No pneumothorax identified post CT-guide d mediastinal biopsy. This is a 2 hour postprocedure radiograph. Dictated by Alexi Dudley MD @ Apr 15 2 ??2:45PM (Electronically Signed) ?? Procedure Note Alexi Dudley MD - 04/15/2022Forma tting of this note might be different from the original. For Patients: As a result of the ntury Cures Act, medical imaging exams and procedure reports are released immediately into your electronic medical record. You may view this report before your referring provider. If you have questions, please contact [facility] care provider. HISTORY: Post mediastinal biopsy. COMPARISON: Chest one view, 04/15/2022, at 12:35 p.m . Technique: Chest one view. Findings: No pneumothorax is identified. There is no shift of mediastinal structures. The mediastinal mass is unchanged. Heart size and pulmonary vasculature are normal. Pleural spaces are within normal limits. The osseous structures are intact. Impression: No pneumothorax identified post CT-guide d mediastinal biopsy. This is a 2 hour postprocedure radiograph. Dictated by Alexi Dudley MD @ Apr 15 2 2:45PM (Electronically Signed) Alexi Dudley MD GENERAL IMAGING PATH [facility] CYTOLOGY ASP CYTOLOGY (04/15/2022 12:16 PM CDT) Component Value Ref Test Analysis Performed Pathologis t Range Method Time At Signature Case Report Medical Cytology Report ? Case: [id number] ? [facility] Authorizing Provider: ??Alexi Dudley MD ? Collected: ? 04/15/2022 1216 ? 2 9:21 AM HEALTH Ordering Location: ? [facility] ?Received: ?04/15/2022 1216 ? CDT [facility] B[facility]- ? [facility] ? CENTRAL Pathologist: ? Dion Haywood MD ? LABORATORY Specimen: ?Mediastinal B iopsy, anterior ? Amendment Amendment to correct [facility] typographic error in 2 9:21 AM HEALTH diagnosis line. CDT LABORATORY- CENTRAL LABORATORY Final MEDIASTINAL MASS, CT-GUIDED NEEDLE BIOPSY WITH IMPRINT SLIDES; [facility] Amendment Diagnosis 1. ??Suspicious but not conclusive for classical Hodgk in lymphoma 2 9:21 AM [facility] electronically 2. ??See comment CDT LABORATORY- s igned by CENTRAL SHARMILA Haywood MD on at 9:21 AM Electronic ally signed by Dion Haywood MD on at 9:15 AM Comment H&E sections disclose fragme nts of lymphoid tissue with many small lymphocytes associated with areas of sclerosis. Rare, suspicious but morphologically inconclusive large cells are seen. ??Immunophe [facility] notyping by immunohistochemi stry reveals the suspicious cells are highly suggestive of classical Hodgkin lymphoma, although without a more characteristic morphology, would not by itself be conclusive. A 2 9: 21 AM HEALTH dditional tissue for histolo gy and lymphoma work-up is therefore recommended, particularly if a clinically enlarged, or PET-avid lymph node is available for biopsy investigation. CDT LABORATORY- CENTRAL The findings are discussed with Dr. Dubois on 04/21/2022 (Chastity Ortiz). LABORATORY Case seen in consultation with Drs. Daley, Subhash and Kaiser. Clinical Ms. Sin is a 27 [facility] [address] guided 2 9:21 AM HEALTH mediastinal mass CDT LABORATORY- biopsy by Dr Alexi Dudley. LABORATORY Gross [facility] Description A) Received identified as A nterior mediastinal is a radiologic guided biopsy specimen. 2 9:21 AM HEALTH CDT LABORATORY- The fragmented core biopsy sampling measures 0.1 cm x 0.2 cm in aggregate. CENTRAL LABORATORY The specimen consists of: ? -8 Air dried slides ? -1 Formalin vial ? -1 RPMI vial ? -1 B+ vial The following were prepared from the specimen submitted: ? -4 Diff-Quik stained slides ? -4 Unstained air drie d Slide(s) are held for potential ancillary study purposes ? -2 H&E stained cell block slides The biopsy material is entirely submitted in 2 cassettes. A2 Cell block material was r emoved from the patient and placed directly in formalin at 1205 on 04/15/22 and fixed in formalin at least 6 hours and no more than 72 hours. A3 Cell block material was p laced in B+ at the time of collection and moved to formalin at 1445 on 04/15/22 and fixed in formalin at least 6 hours and no more than 72 hours. Adequacy A) [place] assessed [facility] Assessment adequacy from the 2 9:21 AM HEALTH air-dried smears at CDT LABORATORY - the time of the CENTRAL procedure with an LABORATORY impression of Adequate. Microscopic Specimen adequacy: Adequate for interpretation. [facility] Description 2 9:21 AM HEALTH All slides were reviewed. Th e microscopic appearance substantiates the diagnosis. CDT LABORATORY- CENTRAL Immunostains are performed on block A2: LABORATORY Cytokeratin Maximiliano: Negative TDT: Negative CD3: Abundant positive T-cells CD43: Abundant positive T-cells; rare negative suspicious ce lls CD20: ??Scattered positive B-cells CD15: Many strongly positive large cells CD30: Scattered strongly positive cells CD45: Rare negative suspicious cells ALK1: Negative PAX5: Rare weakly stained nuclei CD79a: Scattered positive B-cells MUM1: Scattered atypical nuclei BCL6: Frequent positive atypical nuclei and background small lymphocytes Immunostains performed on block A3: CD3: Abundant positive T-cells CD20: Scattered positive B-cells CD15: Scattered strongly positive cells CD30: Scattered strongly positive cells MUM1: Scattered atypical nuclei Support for the interpretati on of this case may have included the use of immunohistochemistry and/or in situ hybridization tests that were performed by [facility] and whose performance characteristics were evaluat ed by pathologists from [facility]. These tests have not been cleared or approved by the U.S. Food and Drug Administration. The FDA has determined that suc h clearance or approval is n ot necessary. These tests are used for clinical purposes and should not be regarded as investigational or for research. This laboratory is certified under the Clinical Labora tory Improvement Amendments of 1988 (CLIA) as qualified to perform high complexity clinical laboratory testing. Flow T & B Cell Screen panel: [facility] 2 9:21 AM [facility]ALTH Summary Interpretation: No monotypic B or T lymphocytes are detect ed. CDT LABORATORY- CENTRAL Clinical indication for flow cytometry: Evaluate lymphaden opathy. LABORATORY Percent of Lymphs B cells (CD19+): 34.2% T cells (CD3+): 68.0% NK cells (CD3-/CD56+): 0.5% CD3+/CD4+: 57.5% CD3+/CD8+: 7.7% CD4:CD8 ratio: 7.5 CD19+/[place]: 14.5% CD19+/Lambda: 9.9% [place]:Lambda ratio: 1.5 B and T lymphocytes in this analysis demonstrate normal qualitative expression of the following antigens: CD2, CD3, CD4, CD5, CD7, CD8, CD10, CD19, CD20, CD45, CD56, [place] and Lambda surface light chains, TCR gamma delta, and TRBC1. Quality Assessment Viability (7-AAD): 36% Polytypic B cell events: 1348 Polytypic T cell events: 2545 Nucleated cells analyzed: 4759 Limit of detection (LOD): 1.1% These results and cytograms have been verified by Dr. Dion Haywood MD, 04/18/2022 5:04 PM This test was developed and its performance characteristics verified by [facility]. It has not been cleared or approved by the [place] Food and Drug Administration. This test is used for clinic al purposes and should not be regarded as investigational or for research. Immunostains may have been u sed on this case in conjunction with flow cytometry in order to address ambiguous or inconclusive findings and/or to provide prognostic information. In the event immunostains were performed, results of both modalities were coordinated with H&E findings during diagnostic evaluation. Analytic Flow Tech: Eva AguilarChiki, 04/18/2022 1:43 P M Verifying Flow Tech: Rossy Fields, [facility], 04/18/2022 2:02 PM Additional Cytology is screened at [facility], Central Laboratory - [address] [place] [address] [address] [facility] - [address] [place] [address] and [facility] - [address] [place] [address] 2 9:21 AM HEALTH CDT LABORATORY- Interpreted at [facility], Central Laboratory - [address], [place] [address] CENTRAL LABORATORY Specimen Anatomical Collection Method Collection Time Receive d Time (Source) Location / / Volume Laterality Aspirate 04/15/2022 12:16 04/15/2022 (Mediastinal PM CDT 12:16 PM CDT Biopsy) Alexi Dudley MD PATHOLOGY/CYTOLOGY Performing Organization Address City/State/ZIP Code Phon e Number [facility] [address] [place] [address] LABORATORY-CENTRAL [address] BIOPSY MEDIASTINUM (04/15/2022 12:15 PM CDT) Anatomical Region Laterality Modality CHEST Computed Tomography, Other, Other, Other Specimen (Source) Anatomical Location Collection Method / Collectio n Time Received Time / Laterality Volume Narrative 04/15/2022 12:24 PM CDT RADIOLOGY IMMEDIATE POST PROCEDURE NOTE ?? 04/15/2022 ? Linda Sin [id number] 1995 ?? INFORMEDCONSENT: In my discussion, prior to the signing o f the consent, I reviewed the procedure, benefits, risks, long-term ef fects, treatment options, possible use of pain or sedation medications, and how the procedure will meet the treatment goal with the patient and/or f amily. The patient was given ample time to ask questions. All questions wer e answered.? MODERATESEDATION: Under physician supervision, midazolam a nd fentanyl were administered intravenously for moderate sedation. Pul se oximetry, heart rate, and blood pressure were continuously monitored by a trained, dedicated nurse. The physician who performed the procedure pr ovided 33 minutes of intra-service time with the patient. ?? INDICATIONS: Mediastinal mass. ?? PROCEDURE PERFORMED: ??CT guided mediast inal mass biopsy. ? FINDINGS (DESCRIPTION OF EACH PROCEDURE) : ??Anterior mediastinal mass. ?? POST-PROCEDURE DIAGNOSIS: ??Status post core needle biopsy. ?? PATIENT POSITION: supine ?? ANTISEPTIC PREPARATION and BARRIER TECHN IQUES USED: ??Skin was prepped and draped in the usual sterile fashion. ?? IMAGING GUIDANCE FOR ACCESS / PROCEDURE: ??CT ??scan ??Permanently recorded images are archived in PACS. ?? ACCESS LOCATION / SITE / TECHNIQUE: ??Ri ght anterior chest wall. ?? EQUIPMENT UTILIZED: 19 coaxial system . ?? CLOSURE: ??none ?? RADIATION DOSE: ?? total exam DLP: ??229 mGy-cm ?? MEDICATIONS GIVEN: ??versed 3 mg IV and fentanyl 150 mcg IV. ??Lidocaine for local anesthesia. ?? SPECIMEN(S): Five 20 gauge, 2 cm core ne edle biopsy specimens; these were evaluated by the power shovel mechanic, and a re adequate for interpretation. ?? COMPLICATIONS: Small right anterior pneu mothorax, which remained stable on a 10 minute delayed image. ??Chest radio graphs are pending. ?? DRAINS: ??None ? ESTIMATED BLOOD LOSS: ??Less than 10 cc. ?? PHYSICIAN(S) AND ASSISTANTS (if any): ?? Alexi Dudley MD ?? Additional Comments: ?? Utilizing sterile technique, local anest hesia with 1% lidocaine, and CT guidance, a 19 gauge short introducer ne edle was advanced into the mediastinal mass; the component to the r ight of midline was chosen to avoid injury to the great vessels. ??Fiv e 20 gauge, 2 cm core needle biopsy specimens were obtained. ??Small anterio r pneumothorax, which remained stable on a 10 minute delayed scan. ??Benji zac tolerated the procedure well. Immediate and 2 hour post procedure ariana st radiographs are pending. ? Please call with questions. Alexi Dudley MD ?? [place] Protocol ?? A. Pre-procedure verification complete y es 1-relevant information / documentation a vailable, reviewed and properly matched to the patient; 2-consent accura te and complete, 3-equipment and supplies available ?? B. Site marking complete Yes Site marked if not in continuous attenda nce with patient ?? C. TIME OUT completed yes Time Out was conducted just prior to sta rting procedure to verify the eight required elements: 1-patient ident ity, 2-consent accurate and complete, 3-position, 4-correct side/sit e marked (if applicable), 5-procedure, 6-relevant images / results properly labeled and displayed (if applicable), 7-antibiotics / irrigat ion fluids (if applicable), 8-safety precautions. ? Please note that all CT scans at this [facility] use dose modulation, iterative reconstruction, and/or weight- based dosing when appropriate to reduce radiation dose to as low as reaso nably achievable. Ric Dubois MD CT Serum (04/15/2022 10:26 AM CDT) Analysis Performed At [facility] ,SERU Negative Negative 04/15/2022 [facility] 11:00 AM CDT LABORATORY-[facility] TR[facility] LABORATORY Specimen Anatomical Collection Method / Collection Time Recei ángel Time (Source) Location / Volume Laterality Blood BLOOD SPECIMEN / Non-Lab 04/15/2022 10:26 022 Unknown Venipuncture / AM CDT 10:41 AM CDT Unknown Alexi Dudley MD CHEMISTRY Performing Organization Address City/State/ZIP Code Phon e Number [facility] [address] [place] [address] LABORATORY-CENTRAL 1999 LABORATORY (ABNORMAL) Platelet Count (04/15/2022 10:26 AM CDT) Analysis Performed At [facility] PLATELET COUNT 196 140 - 440 04/15/2022 [facility] thou/cu mm 10:50 AM CDT LABORATORY-[facility] LAB[facility]AT[facility] MPV 12.3 (H) 6.5 - 11.0 04/15/2022 [facility] fL 10:50 AM CDT LABORATORY-[facility] Specimen Anatomical Collection Method / Collection Time Recei ángel Time (Source) Location / Volume Laterality Blood BLOOD SPECIMEN / Non-Lab 04/15/2022 10:26 022 Unknown Venipuncture / AM CDT 10:41 AM CDT Unknown Alexi Dudley MD HEMATOLOGY Performing Organization Address City/[facility]/ZIP Code Phon e Number [facility] [address] [place] [address] LABORATORY-CENTRAL 2000 LABORATORY Hemoglobin (04/15/2022 10:26 AM CDT) P athologist Signature HEMOGLOBIN 13.2 12.0 - 16.0 04/15/2022 [facility] g/dL 10:50 AM CDT LABORATORY-[facility] LABORATORY MCV 97 80 - 100 fL 04/15/2022 [facility] 10:50 AM CDT LABORATORY-[facility] LABORATORY Specimen Anatomical Collection Method / Collection Time Recei ángel Time (Source) Location / Volume Laterality Blood BLOOD SPECIMEN / Non-Lab 04/15/2022 10:26 022 Unknown Venipuncture / AM CDT 10:41 AM CDT Unknown Alexi Dudley MD HEMATOLOGY Performing Organization Address City/[facility] Phon e Number [facility] [address] [place] [address] LABORATORY-CENTRAL 2000 LABORATORY COVID 19 (2022 2:48 PM CDT) Analysis Performed At [facility] logist Time Signature COVID 19 Negative Negative 04/13/2022 [facility] 1:11 PM CDT LABORATORY-[facility] LAB[facility]ATORY Comment: All PCR tests are subject to fa lse negative result due to variability in viral load and collection technique. A n egative result does not rule out a SARS-CoV-2 infection. Clinical correlation required . Specimen Anatomical Location / Collection Method Collection [place] e Received Time (Source) Laterality / Volume Other SPECIMEN FROM Non-Blood / 2022 2:48 04/13/2022 6:37 NASOPHARYNGEAL Unknown PM CDT AM CDT STRUCTURE / Unknown Narrative [facility] LABORATORY-CENTRAL LABORAT [facility] - 04/13/2022 1:11 PM CDT This test has been authorized by FDA und er an Emergency Use Authorization (EUA). This test is only authorized for the duration of time the declaration that circumstances exist justifying the authorization of th e emergency use of in vitro diagnostic tests for detection of SARS-CoV-2 virus and/or diagnosis of COVID-19 infection under section 564(b)(1) of the Act, 21 U.S.C. 360bbb-3(b)(1), unless the authorization is terminated or revoked sooner. Nicola Cerda MD MICROBIOLOGY Performing Organization Address City/State/ZIP Code Phon e Number [facility] [address] [place] [address] LABORATORY-CENTRAL 2000 LABORATORY from Last 3 Months Insurance Payer Benefit Plan / Subscriber ID Effective Dates Phone Addre ss Type Group [employer] OF [id number] Effective for [address] [place] [address] [employer] BL[employer] OF [id number] 2020-Present [address] [place] [address] Advance Directives Latest Code Status on File Code Status Date Activated Date Inactivated Comments Full Code 05/30/2022 12:58 PM 05/30/2022 7:49 PM Code Status Discussion: Unable to Assess Preferences, Provid er to review later Full Code 05/09/2022 11:54 AM 05/10/2022 3:15 PM Code Status Discussion: Reviewed Preferences Care Teams Instructional Systems Designer Relationship Specialty Start Date End Date Dee Spears DO PCP - General Family Practice 05/05/22 [id number] [facility] [place] [address] Mamie Warren, RN Registered Nurse 05/05/[address] [place] [address]
--- OUTSIDE RECORDS SUMMARY | 2022-06-03 13:53 | XMS_ITS | Encounter Summary ---
:1995 Author Organization [facility] Address [address] [place] [address]. [place] [address] Care Team Providers Name Role Phone No Ref-Primary, Physician Primary Care Provider [phone] Reason for Visit Reason Comments Urgent Care Derm Problem full body rash since mon Encounter Details Date Type Department Care Team Description 09/12/2020 Office Visit [facility] Urgent Kenyetta Sawyer Ra sh (Primary Dx) Care [place] ZAIDA Scanlon [id number] [facility] [address] [place] [address] [place], [place] [id number] (Wo rk) Social History Tobacco Use Types Packs/Day Years Used Date Smoking Tobacco: Never Smokeless Tobacco: Never Sex Assigned at Date Recorded [...] Symptoms failing to improve. Kenyetta Sawyer PA-C [facility] is a 25 year old female [...] eruption documented in this encounter Care Teams Scow Derrick Operator Relationship Specialty Start Date End Date No Ref-Primary, Physician PCP - General 09/12/20 documented as of this encounter
--- OUTSIDE RECORDS SUMMARY | 2022-06-03 13:53 | XMS_ITS | Encounter Summary ---
:1995 Author Organization [facility] Address [address] [place] [address] Care Team Providers Name Role Phone No Ref-Primary, Physician Primary Care Provider Encounter Details Date Type Department Care Team [...] on filedocumented in this encounter Care Teams Field Health Officer Relationship Specialty Start Date End Date No Ref-Primary, Physician PCP - General 09/12/20 documented as of this encounter
--- OUTSIDE RECORDS SUMMARY | 2022-06-03 13:53 | XMS_ITS | Clinical Summary ---
:1995 Author Organization [facility] Address [address] [place] [id number] Care Team Providers Name Role Phone No [...] 1995 ANNUAL REVIEW OF HM ORDERS 1997 YEARLY PREVENTIVE VISIT 1997 COVID-19 Vaccine (#1) 1997 DTAP/TDAP/TD IMMUNIZATION 2008 02/05/2003, 12/27/1999 , (6 - Tdap) 06/09/1998, Additional history exists HIV SCREENING 2012 HEPATITIS C SCREENING 2015 PAP 2018 PHQ-2 (once per calendar 06/26/2021 year) INFLUENZA VACCINE (#1) 2022 HEPATITIS B IMMUNIZATION Completed 06/09/1998, 1997, 1997 IPV IMMUNIZATION Completed 02/05/2003, 06/09/1998, 1997, Additional history exists HPV IMMUNIZATION Completed 09/20/2011, 06/09/2011, 02/10/2010 MENINGITIS IMMUNIZATION Completed 12/25/2015, 02/10/2010 Pneumococcal Vaccine: Aged Out No longer eligible Pediatrics (0 to 5 Years) based on patient's age and At-Risk Patients (6 to to co mplete this topic 64 Years) Insurance Payer Benefit Plan / Subscriber ID Effective Dates Phone Addre ss Type Group BC[place] [id number] 2020-Stefany [phone] [address] [address] Indemnity t 0 [place] [address] Care Teams Folding Rules Printing Machine Operator Relationship Specialty Start Date End Date No Ref-Primary, Physician PCP - General 09/12/20
== END 2022-06-03 13:52 | disposition home or self-care (01) ==
LOC: RAD 13:51
PROVIDERS: PCP Family Medicine; Visit Provider Internal Medicine Hematology & Oncology
DX: C81.12 Nodular sclerosis Hodgkin lymphoma, intrathoracic lymph nodes (principal)
CPT/HCPCS: 93306

== ENCOUNTER 2022-06-18 22:25 | Emergency (ER) | payer BC, SELFPAY ==
[2022-06-18 22:33] VITALS: BP 115/80; PULSE 69; RESP 18; TEMP 36.9; O2SAT 99; BMI 26.5
--- NOTE | 2022-06-18 23:07 | ED.GENADULT ---
HPI - General Adult General Chief complaint: Dental/Oral/Mouth Injury/Pain Stated complaint: mouth sores, just had chemo on the . Time Seen by Provider: 06/18/22 22:37 History of Present Illness HPI narrative: This 27-year-old female comes in reporting pain in her mouth. She has Hodgkin's lymphoma and underwent her 1st dose of chemotherapy 3 days ago. She did attempt to use Orajel and did not have any relief from this. She does not report any sores in her mouth and feels that the pain is deeper than something superficial. She is not taking any pain medications. Related Data Previous Rx's Medication Instructions Recorded lorazepam 0.5 mg tablet (Ativan) 0.5 mg PO TID PRN anxiety #30 tabs 06/08/22 prochlorperazine maleate 5 mg 5 mg PO QID PRN nausea and 06/08/22 tablet (Compazine) vomiting #60 tabs olanzapine 5 mg tablet 5 mg PO QHS nausea prevention #24 06/15/22 tabs Magic Mouthwash 5 ml PO Q4-6H PRN pain #240 mL 06/18/22 (Lidocaine/Benadryl/Maalox) 120 mL suspension Allergies Allergy/AdvReac Type Severity Reaction Status Date / Time No Known Drug Allergies Allergy Verified 06/18/22 22:36 Review of Systems Status of ROS: Reports: 10 or more systems reviewed and unremarkable except as noted in History and below Narrative: Constitutional: No fevers, no weight gain or loss. Eyes: No discharge. No vision changes. HENT: No congestion, no ear pain. Mouth pain. Cardiovascular: No chest pain, no palpitations. Respiratory: No shortness of breath, no wheezes, no cough. Gastrointestinal: No abdominal pain, no vomiting, no diarrhea. Genitourinary: No dysuria, no hematuria. Musculoskeletal: Normal range of motion. Skin: No rashes, no pruritis. Neurological: No dizziness, weakness, sensory change, speech change. Endo/Heme/Allergies: No bruising or bleeding. No polydipsia. Pysch: no suicidality, no anxiety, no insomnia. All other systems reviewed and are negative. [facility] Medical History (Updated 06/18/22 @ 23:11 by Floyd Marshall MD) Dysfunctional uterine bleeding Hodgkin lymphoma Surgical History (Updated 06/18/22 @ 23:10 by Thanh Gomez RN) No significant past surgical history Social History (Updated 02/04/22 @ 14:47 by Dee Spears DO) Narrative: Patient lives with boyfriend. One dog and one cat. 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 What is your current living situation: I presently have a place to live Are you following a diet prescribed by a doctor: No Are you following a special diet: No Highest level of school completed/degree received: Bachelor's degree Physical activity type: other Physical activity type details: dancing / PT Smoking Status: Never smoker How often do you have a drink containing alcohol: never AUDIT-C Alcohol total score: 0 Non-prescribed substance use: denies use Caffeine: Yes (occasionally) Are you now , , , , never or living with a partner: living with partner Social isolation score (0-1 are the most socially isolated patients): 1 Within the last year, have you been humiliated or emotionally abused in other ways by your partner or ex-partner: no Within the last year, have you been afraid of your partner or ex-partner: no Within the last year, have you been raped or forced to have any kind of sexual activity by your partner or ex-partner: no Within the last year, have you been kicked, hit, slapped, or otherwise physically hurt by your partner or ex-partner: no HARK total score: 0 How often does anyone, including family, friends and others, physically hurt you: never How often does anyone, including family, friends and others, insult or talk down to you: never How often does anyone, including family, friends and others, threaten you with harm: never How often does anyone, including family, friends and others, scream or curse at you: never Little interest or pleasure in doing things: not at all Feeling down, depressed, or hopeless: not at all Feel stressed/tense/nervous/anxious/difficulty sleeping: to some extent Do you think of yourself as: straight/heterosexual Gender Identity: female Are you currently sexually active: Yes In the past 12 months, how many sex partners have you had: one What kind of protection do you use against STDs: condoms Are you using contraception or practicing any form of control: Yes Exam Narrative: Exam Narrative: Constitutional: Well-developed, well-nourished, no acute distress. HEENT: Normocephalic, atraumatic. Oropharynx appears normal without any sign of lesion or erythema. Neck: Normal range of motion. Nontender. Supple. Heart: Intact distal pulses. Lungs: No chest discomfort. No wheezes, rhonchi, or rales. Abdomen: Nontender. Back: Normal range of motion. Extremities: Normal range of motion. No injury. Skin: Intact. No rash. Warm. No erythema or pallor. Neurologic: No altered sensation. No weakness. Alert and oriented. Psychiatric: No suicidality. No anxiety or depression. No insomnia. Nursing notes and vitals signs are reviewed. Const: Vital Signs, click to edit/add: Vital Signs - 24 hr 06/18/22 22:33 Temperature 98.5 F Pulse Rate [Right Pulse Oximeter] 69 Respiratory Rate 18 Blood Pressure [Ri ght Upper Arm] 115/80 Pulse Oximetry 99 Oxygen Delivery Me thod Room Air Course Vital Signs Vital signs: Initial Vital Signs Temperature 98.5 F 06/18/22 22:33 Temperature Source Temporal Artery Scan 06/18/22 22:33 Pulse Rate 69 06/18/22 22:33 Respiratory Rate 18 06/18/22 22:33 Blood Pressure 115/80 06/18/22 22:33 Blood Pressure Mean 91 06/18/22 22:33 Blood Pressure Position Sitting 06/18/22 22:33 Pulse Oximetry 99 06/18/22 22:33 Oxygen Delivery Method 06/18/22 22:33 Vital Signs Temperature 98.5 F 06/18/22 22:33 Pulse Rate 69 06/18/22 22:33 Respiratory Rate 18 06/18/22 22:33 Blood Pressure 115/80 06/18/22 22:33 Pulse Oximetry 99 06/18/22 22:33 Oxygen Delivery Method 06/18/22 22:33 Temperature 98.5 F 06/18/22 22:33 Pulse Rate 69 06/18/22 22:33 Respiratory Rate 18 06/18/22 22:33 Blood Pressure 115/80 06/18/22 22:33 Pulse Oximetry 99 06/18/22 22:33 Oxygen Delivery Method 06/18/22 22:33 Medical Decision Making MDM Narrative Medical decision making narrative: This patient has mouth pain without any signs of sores or ulcers currently. She is just starting chemotherapy for Hodgkin's lymphoma. There is no need to do diagnostic testing at this time. The main goal here is symptomatic relief. She did receive a prescription for tablets of O[place]oco. I also prescribed Magic mouthwash. Discharge Plan Discharge Clinical Impression: Hodgkin lymphoma, Oral cavity pain Patient Disposition: Home, Self-Care Condition: Stable Additional Instructions: Use medications as needed and indicated. Follow up with MD or return if worsening. Prescriptions: New Magic Mouthwash (Lidocaine/Benadryl/Maalox) 120 mL suspension 5 ml PO Q4-6H PRN (Reason: pain) Qty: 240 0RF Rx Instructions: Lidocaine Viscous 2 % mucosal solution 40 mL; Maalox 200 mg-200 mg-20 mg/5 mL oral suspension 40 mL; Benadryl 12.5 mg/5 mL oral elixir 40 mL; Per 120 mL SWISH AND SPIT. MAY COMPOUND IF FIRST PRODUCT IS NOT AVAILABLE. No Action prochlorperazine maleate [Compazine] 5 mg tablet 5 mg PO QID PRN (Reason: nausea and vomiting) Qty: 60 0RF lorazepam [Ativan] 0.5 mg tablet 0.5 mg PO TID PRN (Reason: anxiety) Qty: 30 0RF olanzapine 5 mg tablet 5 mg PO QHS Qty: 24 0RF Rx Instructions: If Nausea uncontrolled, Take at bedtime for 4 days, starting night of chemotherapy treatment. Do not take at same time as lorazepam. Follow Up/Referrals: Dee Spears DO [Primary Care Provider] - Stand Alone Forms: [facility] Info Instructions
[2022-06-18 23:20] VITALS: BP 121/78; PULSE 74; RESP 18; TEMP 36.8; O2SAT 99
== END 2022-06-18 23:20 | disposition home or self-care (01) ==
PROVIDERS: Emergency Provider Emergency Medicine Emergency Medical Services; PCP Family Medicine
DX: K13.79 Other lesions of oral mucosa (principal); C81.90 Hodgkin lymphoma, unspecified, unspecified site
CPT/HCPCS: 99283; 99284

== ENCOUNTER 2022-08-09 09:25 | Emergency (ER) | payer BC, SELFPAY ==
[2022-08-09 09:37] VITALS: BP 113/77; PULSE 108; RESP 20; TEMP 36.6; O2SAT 97; BMI 26.5
--- NOTE | 2022-08-09 09:55 | CRLHL7_ITS ---
For Patients: As a result of the Century Cures Act, medical imaging exams and procedure reports are released immediately into your electronic medical record. You may view this report before your referring provider. If you have questions, please contact your health care provider. INDICATION: Shortness of breath TECHNIQUE: Chest 1 view COMPARISON: 02/14/2022, 05/23/2022 FINDINGS: Port-A-Cath is present in the inferior SVC. No pneumothorax. Similar appearance of the right hilum/mediastinal contours. Similar left main PA. No infiltrate, effusion or CHF. IMPRESSION: No acute findings. Dictated by Tomas Ocampo MD @ 08/09/2022 10:33:24 AM (Electronically Signed)
[2022-08-09] MEDS: ACETAMINOPHEN 500 MG TABLET 1000 MG PO (10:09)
[2022-08-09] MEDS: 0.9 % SODIUM CHLORIDE 1000 ml 1,000 ML IV ×2 (10:11→12:03)
[2022-08-09 10:34] LABS: Lactate* 0.7 mmol/L (0.5-1.9)
[2022-08-09 10:42] LABS: Basophils Percent Auto 0.3 % (0.0-3.0); Eosinophils Percent Auto 0.4 % (0.0-7.0); Hematocrit 32.2 % (33.0-51.0); Immature Granulocytes Pct Auto 12.9 %; Mean Corpuscular HGB Conc 34 gm/dL (32-36); Mean Corpuscular Hemoglobin 32 pg (26-34); Mean Corpuscular Volume 94 fL (80-100); Monocytes Percent Auto 7.1 % (0.0-11.0); Neutrophils Percent Auto 74.3 % (42.0-72.0); Platelet Count* 149 K/uL (140-440); RDW Coefficient of Variation % 13.2 % (11.5-15.5); Red Blood Count 3.42 m/uL (4.00-5.20); White Blood Count* 17.38 K/uL (4.50-11.00)
[2022-08-09 10:50] LABS: Troponin, Point-of-Care* 0.02 ng/ml (0.01-0.04)
[2022-08-09 11:00] VITALS: BP 117/75; PULSE 108; RESP 14; O2SAT 98
[2022-08-09 11:05] LABS: D Dimer Quantitative* < 0.27 ug/ml (0.00-0.50)
[2022-08-09 11:15] LABS: Slide Review Reflex Yes
[2022-08-09 11:17] LABS: Slide Review Acceptable Review (Acceptable)
[2022-08-09 11:21] LABS: Chloride* 104 mmol/L (96-114); Potassium* 3.9 mmol/L (3.6-5.1); Sodium* 138 mmol/L (135-149)
[2022-08-09 11:24] LABS: Blood Urea Nitrogen* 8 mg/dL (5-24); Carbon Dioxide* 26 mmol/L (20-32); Creatinine* 0.6 mg/dL (0.5-1.5); Est. Creatinine Clearance* 108.16; Estimated Glomerular Filt Rate 128 ml/min
[2022-08-09 11:25] LABS: Calcium* 9.2 mg/dL (8.4-10.6); Glucose* 91 mg/dL (60-115)
--- NOTE | 2022-08-09 11:36 | ED_ITS ---
HPI - SOB/Dyspnea General Date Seen: 08/09/22 Chief Complaint: Cough Stated Complaint: Cancer patient/Covid+/Fever Time Seen by Provider: 08/09/22 09:32 Source: patient Mode of arrival: ambulatory Limitations: no limitations History of Present Illness HPI Narrative: Patient is a 27-year-old female who suffers from Hodgkin's lymphoma, is currently in chemotherapy with her last chemotherapy of ABVD on July 28. She presents here with the positive COVID swab at home yesterday, been sick for the last 3 days, fevers of 100?, up to maybe 102 at the highest. She is taking Tylenol but did not take any this morning, as she called her cancer care and they told her not to take this. She did and describes a cough, but really no shortness of breath associated with this. She has no pre-existing history of asthma pneumonias. She denies any leg swelling, any pain in her chest, any nausea vomiting diarrhea, immunizations are 1st 2 for COVID, she has never had COVID before. MD elicited complaint: cough Related Data Home oxygen amount: none Home Medications Medication Instructions Recorded Confirmed diphenhydramine HCl 25 mg capsule 25 mg PO QHS PRN 06/30/22 07/28/22 (ZzzQuil) acetaminophen 325 mg capsule 650 mg PO Q6H PRN 07/21/22 07/28/22 (Tylenol) fevzwwl-qbvrwejvcfyne-bhjzpbnt 250 1 tab PO Q4-6H PRN 07/21/22 07/28/22 mg-250 mg-65 mg tablet (Excedrin Migraine) sennosides 8.6 mg capsule (senna) 8.6 mg PO BID PRN 07/21/22 07/28/22 Previous Rx's Medication Instructions Recorded lorazepam 0.5 mg tablet (Ativan) 0.5 mg PO TID PRN anxiety #30 tabs 06/08/22 prochlorperazine maleate 5 mg 5 mg PO QID PRN nausea and 06/08/22 tablet (Compazine) vomiting #60 tabs olanzapine 5 mg tablet 5 mg PO QHS nausea prevention #24 06/15/22 tabs Magic Mouthwash 5 ml PO Q4-6H PRN pain #240 mL 06/18/22 (Lidocaine/Benadryl/Maalox) 120 mL suspension nirmatrelvir 300 mg (150 mg See Rx Instructions PO .COMPLEX 08/09/22 x2)-ritonavir 100 mg tablet,dose #30 ea pack(EUA) (Paxlovid) Allergies Allergy/AdvReac Type Severity Reaction Status Date / Time No Known Drug Allergies Allergy Verified 07/28/22 08:35 Review of Systems Status of ROS: Reports: 10 or more systems reviewed and unremarkable except as noted in History and below PFSH PFSH Medical History Dysfunctional uterine bleeding Hodgkin lymphoma Neutropenia Surgical History No significant past surgical history Social History Narrative: Patient lives with boyfriend. One dog and one cat. 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 What is your current living situation: I presently have a place to live Are you following a diet prescribed by a doctor: No Are you following a special diet: No Highest level of school completed/degree received: Bachelor's degree Physical activity type: other Physical activity type details: dancing / PT Smoking Status: Never smoker How often do you have a drink containing alcohol: never How often do you have six or more drinks on one occasion: Never AUDIT-C Alcohol total score: 0 Non-prescribed substance use: denies use Caffeine: Yes (occasionally) Are you now , , , , never or living with a partner: living with partner Social isolation score (0-1 are the most socially isolated patients): 1 Within the last year, have you been humiliated or emotionally abused in other ways by your partner or ex-partner: no Within the last year, have you been afraid of your partner or ex-partner: no Within the last year, have you been raped or forced to have any kind of sexual activity by your partner or ex-partner: no Within the last year, have you been kicked, hit, slapped, or otherwise physically hurt by your partner or ex-partner: no HARK total score: 0 How often does anyone, including family, friends and others, physically hurt you : never How often does anyone, including family, friends and others, insult or talk down to you: never How often does anyone, including family, friends and others, threaten you with harm: never How often does anyone, including family, friends and others, scream or curse at you: never Little interest or pleasure in doing things: not at all Feeling down, depressed, or hopeless: not at all Feel stressed/tense/nervous/anxious/difficulty sleeping: to some extent Do you think of yourself as: straight/heterosexual Gender Identity: female Are you currently sexually active: Yes In the past 12 months, how many sex partners have you had: one What kind of protection do you use against STDs: condoms Are you using contraception or practicing any form of control: Yes service: No Exam Narrative: Exam Narrative: Patient is seen in room 1, she appears to be in no apparent distress speaking to me in full sentences in good spirits. Vital signs are reviewed. Patient is speaking normally, no problem with slurring words, oriented x3. Head eyes ears nose and throat exam show equal pupils, no scleral icterus, extraocular muscles are normal, no facial droop, speech is normal, trachea normal and midline. Thyroid normal midline palpable not enlarged. Chest shows symmetrical rise bilaterally, normal auscultation with no wheezes, no increased work of breathing, no overt bruising or lesions seen, no tenderness is noted on auscultation. Heart sounds normal with no S3-S4 no murmurs clicks or gallops. Abdomen shows no obvious masses or hepatosplenomegaly, no organomegaly, bowel sounds are normal in all quadrants. No tenderness is noted also in all quadrants. Upper and lower extremities show normal power, normal range of motion, pulses are normal, sensations normal, fine motor movements are normal, pelvis is stable to rocking. Cervical spine shows normal range of motion, and palpably not tender. Thoracic spine shows normal range of motion, and palpably not tender, lumbar spine shows no tenderness to palpation percussion and is otherwise normal range of motion. Skin shows no rashes, petechiae or eccymosis. Const: Vital Signs, click to edit/add: Vital Signs - 24 hr 08/09/22 09:37 08/09/22 12:45 08/09/22 11:00 Temperature 97.9 F 97.7 F Pulse Rate [Right Pulse Oximeter] 108 H 102 H 108 H Respiratory Rate 20 18 14 Blood Pressure [Ri ght Upper Arm] 113/77 112/71 117/75 Pulse Oximetry 97 99 98 Oxygen Delivery Me thod Room Air Room Air Room Air Documenting provider has reviewed patient's vital signs: yes Course Course Hospital Course: Discussed with the patient that her laboratory tests, and EKG, chest x-ray all looked good. Her vital signs are normal, but given her history of the Hodgkin's lymphoma she should take the Paxlovid. Her kidney function was excellent, I went over the risks benefits and side effects, she received IV fluids here, felt better. I had pharmacy review her current medications and she is a candidate, I also contacted her nurse practitioner at the oncology clinic, Mary Kate. Vital Signs Vital signs: Initial Vital Signs Temperature 97.9 F 08/09/22 09:37 Temperature Source Temporal Artery Scan 08/09/22 09:37 Pulse Rate 108 H 08/09/22 09:37 Respiratory Rate 20 08/09/22 09:37 Blood Pressure 113/77 08/09/22 09:37 Blood Pressure Mean 89 08/09/22 09:37 Blood Pressure Position Sitting 08/09/22 09:37 Pulse Oximetry 97 08/09/22 09:37 Oxygen Delivery Method 08/09/22 09:37 Vital Signs Temperature 97.9 F 08/09/22 09:37 Pulse Rate 108 H 08/09/22 09:37 Respiratory Rate 20 08/09/22 09:37 Blood Pressure 113/77 08/09/22 09:37 Pulse Oximetry 97 08/09/22 09:37 Oxygen Delivery Method 08/09/22 09:37 Temperature 97.7 F 08/09/22 12:45 Pulse Rate 102 H 08/09/22 12:45 Respiratory Rate 18 08/09/22 12:45 Blood Pressure 112/71 08/09/22 12:45 Pulse Oximetry 99 08/09/22 12:45 Oxygen Delivery Method 08/09/22 12:45 MDM - SOB/Dyspnea MDM Narrative Medical decision making narrative: Life-threatening differential diagnosis includes occluded COPD exacerbation, pulmonary edema, acute coronary syndromes, pulmonary embolism, pneumonia, and pneumothorax. Other differential diagnosis considerations include asthma, bronchitis as well as other etiologies Medical Records Attestation: I reviewed the patient's medical records. Lab Data Attestation: I reviewed the patient's lab results. Labs: Lab Results 08/09/22 08/09/22 08/09/22 Range/Units 10:25 10:25 10:25 WBC 17.38 H (4.50-11.00) K/uL RBC 3.42 L (4.00-5.20) m/uL Hgb 11.0 L (12.0-16.0) gm/dL Hct 32.2 L (33.0-51.0) % MCV 94 (80-100) fL MCH 32 (26-34) pg MCHC 34 (32-36) gm/dL RDW Coeff of Keegan 13.2 (11.5-15.5) % Plt Count 149 (140-440) K/uL Neut % (Auto) 74.3 H (42.0-72.0) % Lymph % (Auto) 5.0 L (20-44) % Ramsey % (Auto) 7.1 (0.0-11.0) % Eos % (Auto) 0.4 (0.0-7.0) % Baso % (Auto) 0.3 (0.0-3.0) % Neut # (Auto) 12.90 H (1.7-7.0) K/uL Lymph # (Auto) 0.90 (0.90-2.90) K/uL Ramsey # (Auto) 1.20 H (0.00-0.90) K/UL Eos # (Auto) 0.10 (0.00-0.50) K/uL Baso # (Auto) 0.10 (0.00-0.30) K/uL Diff Slide Review Acceptable Review (Acceptable) D-Dimer Quant (PE/DVT) < 0.27 (0.00-0.50) ug/ml Sodium 138 (135-149) mmol/L Potassium 3.9 (3.6-5.1) mmol/L Chloride 104 (96-114) mmol/L Carbon Dioxide 26 (20-32) mmol/L BUN 8 (5-24) mg/dL Creatinine 0.6 (0.5-1.5) mg/dL Estimated Creat Clear 108.16 Estimated GFR 128 ml/min Glucose 91 (60-115) mg/dL Lactate (0.5-1.9) mmol/L Calcium 9.2 (8.4-10.6) mg/dL Procalcitonin 0.15 (<0.50) ng/mL POC Troponin I (0.01-0.04) ng/ml 08/09/22 08/09/22 Range/Units 10:25 10:25 WBC (4.50-11.00) K/uL RBC (4.00-5.20) m/uL Hgb (12.0-16.0) gm/dL Hct (33.0-51.0) % MCV (80-100) fL MCH (26-34) pg MCHC (32-36) gm/dL RDW Coeff of Keegan (11.5-15.5) % Plt Count (140-440) K/uL Neut % (Auto) (42.0-72.0) % Lymph % (Auto) (20-44) % Ramsey % (Auto) (0.0-11.0) % Eos % (Auto) (0.0-7.0) % Baso % (Auto) (0.0-3.0) % Neut # (Auto) (1.7-7.0) K/uL Lymph # (Auto) (0.90-2.90) K/uL Ramsey # (Auto) (0.00-0.90) K/UL Eos # (Auto) (0.00-0.50) K/uL Baso # (Auto) (0.00-0.30) K/uL Diff Slide Review (Acceptable) D-Dimer Quant (PE/DVT) (0.00-0.50) ug/ml Sodium (135-149) mmol/L Potassium (3.6-5.1) mmol/L Chloride (96-114) mmol/L Carbon Dioxide (20-32) mmol/L BUN (5-24) mg/dL Creatinine (0.5-1.5) mg/dL Estimated Creat Clear Estimated GFR ml/min Glucose (60-115) mg/dL Lactate 0.7 (0.5-1.9) mmol/L Calcium (8.4-10.6) mg/dL Procalcitonin (<0.50) ng/mL POC Troponin I 0.02 (0.01-0.04) ng/ml Imaging Data Chest x-ray: Attestation: I have reviewed the pertinent imaging results. My impression: No acute changes Radiologist's impression: Patient: ZUHAIR POTTER Facility:?[facility] Patient ID:?[id number] Site Patient ID:?[id number]. Site :?[id number] Study:?XRay Chest 1 VIEW PORTABLE-08/09/2022 10:17:22 AM Ordering Physician:Wong Dolan Final Report: INDICATION: Shortness of breath TECHNIQUE: Chest 1 view COMPARISON: 02/14/2022, 05/23/2022 FINDINGS: Port-A-Cath is present in the inferior SVC. No pneumothorax. Similar appearance of the right hilum/mediastinal contours. Similar left main PA. No infiltrate, effusion or CHF. IMPRESSION: No acute findings. Dictated by Tomas Ocampo MD @ 08/09/2022 10:33:24 AM (Electronic Signature) ECG Data Attestation: I personally reviewed and interpreted this ECG as follows: ECG interpretation date: 08/09/22 Prior ECG tracings: available for review Interpretation: EKG shows normal sinus rhythm, with mild tachycardia at 1:14 a.m., no acute ST wave changes, review from previous EKGs no change Discharge Plan Discharge Clinical Impression: Hodgkin lymphoma, COVID-19 Patient Disposition: Home, Self-Care Condition: Stable Instructions: Droplet Precautions (ED), COVID-19 (Coronavirus Disease 2019) (ED), COVID-19 and Chronic Health Conditions (ED) Additional Instructions: Home rest use of Paxlovid as directed, this will decrease your chance of getting sicker, you take this twice a day. Return if fevers chills nausea vomiting but this medicine works fairly well for this. May continue to take your other medications, Prescriptions: New Paxlovid (EUA) 300 mg (150 mg x 2)-100 mg tablets,dose pack See Rx Instructions .ROUTE .COMPLEX Qty: 30 0RF Rx Instructions: take TWO 150 mg tablets of nirmatrelvir with ONE 100 mg tablet of ritonavir twice daily for 5 days No Action diphenhydramine HCl [ZzzQuil] 25 mg capsule 25 mg PO QHS PRN senna 8.6 mg capsule 8.6 mg PO BID PRN Excedrin Migraine 250-250-65 mg tablet 1 tab PO Q4-6H PRN acetaminophen [Tylenol] 325 mg capsule 650 mg PO Q6H PRN Magic Mouthwash (Lidocaine/Benadryl/Maalox) 120 mL suspension 5 ml PO Q4-6H PRN (Reason: pain) Qty: 240 0RF Rx Instructions: Lidocaine Viscous 2 % mucosal solution 40 mL; Maalox 200 mg-200 mg-20 mg/5 mL oral suspension 40 mL; Benadryl 12.5 mg/5 mL oral elixir 40 mL; Per 120 mL SWISH AND SPIT. MAY COMPOUND IF FIRST PRODUCT IS NOT AVAILABLE. prochlorperazine maleate [Compazine] 5 mg tablet 5 mg PO QID PRN (Reason: nausea and vomiting) Qty: 60 0RF lorazepam [Ativan] 0.5 mg tablet 0.5 mg PO TID PRN (Reason: anxiety) Qty: 30 0RF olanzapine 5 mg tablet 5 mg PO QHS Qty: 24 0RF Hold Instructions: pt not taking Rx Instructions: If Nausea uncontrolled, Take at bedtime for 4 days, starting night of chemotherapy treatment. Do not take at same time as lorazepam. Follow Up/Referrals: Dee Spears DO [Primary Care Provider] - Stand Alone Forms: [employer] Info Instructions
[2022-08-09 11:42] LABS: Procalcitonin* 0.15 ng/mL (<0.50)
[2022-08-09 12:45] VITALS: BP 112/71; PULSE 102; RESP 18; TEMP 36.5; O2SAT 99
[2022-08-09] MEDS: HEPARIN 500 UNIT/5 ML SYRINGE IVF (12:55)
== END 2022-08-09 13:00 | disposition home or self-care (01) ==
PROVIDERS: Emergency Provider Family Medicine; PCP Family Medicine
DX: U07.1 COVID-19 (principal); C81.90 Hodgkin lymphoma, unspecified, unspecified site
CPT/HCPCS: 36415; 71045; 80048; 83605; 84145; 84484; 85025; 85379; 87040; 93005; 99285; A9270; J1642; J7030

== ENCOUNTER 2022-08-25 14:00 | Outpatient (CLI) | payer BC, SELFPAY ==
--- NOTE | 2022-08-25 14:00 | CRLHL7_ITS ---
For Patients: As a result of the Century Cures Act, medical imaging exams and procedure reports are released immediately into your electronic medical record. You may view this report before your referring provider. If you have questions, please contact your health care provider. CLINICAL HISTORY: Hodgkin`s lymphoma. TECHNIQUE: Following IV injection of 95-rvyswp-7-deoxyglucose (FDG) and a standard uptake period of approximately 60 minutes, a non-contrast CT scan followed by a PET scan were acquired along the length of the body from the mid portion of the head to the mid thighs. The non-contrast CT was used for anatomic localization and photon attenuation correction of the PET scan. Blood Glucose Level (mg/dL): 82 FDG Dose (mCi): 12.7 COMPARISON: PET-CT scan dated 28 April 2022. FINDINGS: Head/Neck: No abnormal activity identified in the neck. Chest: Right-sided Port-A-Cath. Decrease in size and activity the right anterior mediastinal becky mass measuring 2.9 x 2.1 cm, previously 5.4 x 3.0 cm, SUV max 2.3 previously 14.5. No other mediastinal adenopathy. No hilar adenopathy. No axillary adenopathy. The lungs show no focal pulmonary opacities. No pneumothorax. Abdomen/Pelvis: No focal abnormalities identified in the visualized portions of the liver, spleen, pancreas, adrenal glands, and kidneys. No hydronephrosis. The GI tract is incompletely distended but shows no gross abnormalities. No retroperitoneal, pelvic sidewall, or mesenteric adenopathy. Bones: No abnormal skeletal activity identified. IMPRESSION: 1. Right anterior mediastinal becky mass is decreased in size and activity. 2. No new adenopathy identified. Dictated by Bebo Bajwa MD @ 08/26/2022 11:28:23 AM (Electronically Signed)
== END 2022-08-25 14:01 | disposition home or self-care (01) ==
LOC: RAD 08-30 08:11
PROVIDERS: PCP Family Medicine; Visit Provider Clinical Nurse Specialist
DX: C81.90 Hodgkin lymphoma, unspecified, unspecified site (principal)
CPT/HCPCS: 78815; A9552

== ENCOUNTER 2022-11-01 08:45 | Outpatient (RCR) | payer BC, SELFPAY ==
[2022-05-25 10:29] LABS: Basophils Absolute Auto 0.05 K/uL (0.00-0.30); Basophils Percent Auto 0.8 % (0.0-3.0); Eosinophils Absolute Auto 0.11 K/uL (0.00-0.50); Eosinophils Percent Auto 1.7 % (0.0-7.0); Hematocrit 40.5 % (33.0-51.0); Hemoglobin* 13.7 gm/dL (12.0-16.0); Immature Granulocytes Abs Auto 0.01 K/uL (0.00-0.30); Immature Granulocytes Pct Auto 0.2 %; Lymphocytes Percent Auto 14.5 % (20-44); Mean Corpuscular HGB Conc 34 gm/dL (32-36); Mean Corpuscular Hemoglobin 32 pg (26-34); Mean Corpuscular Volume 96 fL (80-100); Monocytes Percent Auto 6.2 % (0.0-11.0); Neutrophils Percent Auto 76.6 % (42.0-72.0); Platelet Count* 226 K/uL (140-440); Red Blood Count 4.24 m/uL (4.00-5.20); White Blood Count* 6.64 K/uL (4.50-11.00)
[2022-05-25 10:47] LABS: Slide Review Reflex No
[2022-05-25 10:56] LABS: Albumin* 4.7 g/dL (3.3-5.0); Chloride* 108 mmol/L (96-114); Sodium* 140 mmol/L (135-149)
[2022-05-25 10:57] LABS: Potassium* 4.3 mmol/L (3.6-5.1)
[2022-05-25 10:59] LABS: Alanine Aminotransferase* 14 U/L (4-35); Alkaline Phosphatase* 94 U/L (40-150); Aspartate Amino Transferase* 13 U/L (12-35); Bilirubin Total* 0.5 mg/dL (0.1-1.5); Blood Urea Nitrogen* 12 mg/dL (5-24); Calcium* 9.4 mg/dL (8.4-10.6); Carbon Dioxide* 25 mmol/L (20-32); Creatinine* 0.6 mg/dL (0.5-1.5); Estimated Glomerular Filt Rate 128 ml/min; Glucose* 86 mg/dL (60-115); Lactate Dehydrogenase* 167 U/L (120-246); Total Protein* 7.8 g/dL (6.0-8.3)
[2022-05-25 11:52] LABS: Erythrocyte SedimentationRate* 20 mm/hr (2-20)
--- NOTE | 2022-05-26 15:20 | ONC.NURNOTE ---
Patient plans on staying with Dr. granda and the [place] team at [facility]
--- NOTE | 2022-06-01 11:01 | ONC.NURNOTE ---
New chemo teaching with patient and her mother Katalina Reviewed all 4 medications, going through handouts and new treatment binder information Adriamycin, Bleomycin, Velban, Decarbizine reviewed possible toxicites and side effects reviewed after hours management management of fever discussed with significant neutropenia R/T ABVD she may not have a temp as high as 100.5 and may need to be seen if symptomatic at lover temps (shaking chills, flushing) patients question were addressed about post treatment precautions relating to exposure to blood/body secretions- (not saliva) for 48 hr post treatment reviewed self care at home, after hours management with meghan Ohara after 06/26/21, importance of calling with questions, changes post treatment questions addressed on nutrition, discussed available -aromatherapy patches, social work instructor, dietitian over 70 min spent with education consents and LEIDA signed all questions addressed
--- NOTE | 2022-06-01 12:13 | ONC.NURNOTE ---
PSDS: RANGE OF 5-8 Will offer SS visit with first chemo treatment
--- NOTE | 2022-06-09 13:30 | URNOTE ---
Received request for prior authorizaiton for Favian ([id number]). Per Availity, Prior authorization is not required. [id number]
--- NOTE | 2022-06-09 13:50 | URNOTE ---
REceived request for prior auth for Bleomycin (J9040), Dacarbazine (J9130), Doxorubicin (J9000), Vinblastine (J9360), Aloxi (J2469) and Fosaprepitant (J1453). Per Availity, prior authorization is not required for these medications. [id number]
[2022-06-10 14:26] VITALS: BP 116/77; PULSE 99; RESP 16; TEMP 36.4; O2SAT 98
--- NOTE | 2022-06-14 09:45 | ONC.NURNOTE ---
Reviewed with Dr. Lobo that pt has Mirena IUD that was placed ~5 years ago; Dr. Lobo confirmed that Mirena does not adversely affect Lupron efficacy. Order placed for test prior to 1st chemo.
[2022-06-15 08:13] VITALS: BP 114/73; PULSE 92; RESP 16; TEMP 36.7; O2SAT 96
[2022-06-15 08:45] LABS: Basophils Absolute Auto 0.05 K/uL (0.00-0.30); Eosinophils Absolute Auto 0.09 K/uL (0.00-0.50); Eosinophils Percent Auto 1.9 % (0.0-7.0); Hematocrit 38.1 % (33.0-51.0); Immature Granulocytes Abs Auto 0.01 K/uL (0.00-0.30); Immature Granulocytes Pct Auto 0.2 %; Lymphocytes Percent Auto 13.8 % (20-44); Mean Corpuscular HGB Conc 34 gm/dL (32-36); Mean Corpuscular Hemoglobin 33 pg (26-34); Mean Corpuscular Volume 95 fL (80-100); Monocytes Percent Auto 6.7 % (0.0-11.0); Neutrophils Percent Auto 76.4 % (42.0-72.0); Platelet Count* 188 K/uL (140-440); RDW Coefficient of Variation % 11.9 % (11.5-15.5)
[2022-06-15 08:46] LABS: Slide Review Reflex No
[2022-06-15 09:04] LABS: Albumin* 4.4 g/dL (3.3-5.0); Chloride* 109 mmol/L (96-114)
[2022-06-15 09:05] LABS: Sodium* 140 mmol/L (135-149)
[2022-06-15 09:07] LABS: Carbon Dioxide* 24 mmol/L (20-32); Creatinine* 0.6 mg/dL (0.5-1.5); Estimated Glomerular Filt Rate 128 ml/min
[2022-06-15 09:08] LABS: Alanine Aminotransferase* 13 U/L (4-35); Alkaline Phosphatase* 75 U/L (40-150); Aspartate Amino Transferase* 12 U/L (12-35); Bilirubin Total* 0.4 mg/dL (0.1-1.5); Blood Urea Nitrogen* 13 mg/dL (5-24); Calcium* 8.8 mg/dL (8.4-10.6); Glucose* 105 mg/dL (60-115); Total Protein* 7.2 g/dL (6.0-8.3)
[2022-06-15 09:27] LABS: HCG Quantitative* < 2.39 mIU/mL
[2022-06-15] MEDS: dexAMETHasone 12 MG in 0.9 % SODIUM CHLORIDE 100 ml 100 ML 404.8 MG IVPB (10:12)
[2022-06-15] MEDS: PALONOSETRON 0.25 MG/5 ML inj IV (10:13)
[2022-06-15] MEDS: FOSAPREPITANT 150 MG inj 150 MG in 0.9 % SODIUM CHLORIDE 250 ml 250 ML 510 MG IVPB (10:42)
[2022-06-15] MEDS: ACETAMINOPHEN 325 MG TABLET 650 MG PO (10:43)
[2022-06-15] MEDS: diphenhydrAMINE 25 MG in 0.9 % SODIUM CHLORIDE 100 ml 100 ML 402 MG IVPB (11:30)
[2022-06-15 14:28] VITALS: BP 113/70; PULSE 93; RESP 18; TEMP 37.1; O2SAT 95
[2022-06-15] MEDS: SODIUM CHLORIDE 0.9 % (FLUSH) 10 ML SYRINGE IVF (15:04)
[2022-06-15] MEDS: HEPARIN 500 UNIT/5 ML SYRINGE IVF (15:05)
--- NOTE | 2022-06-15 17:03 | ONC.NURNOTE ---
Home instructions given: to continue with Tylenol 650 mg and Benadryl 25 mg every 6-8 hours for the next 24 hours Patient report sensation of rapid heart rate at the end of her chemo today noted HR 100- patient states she often runs in the 50-60 range transient rash noted across upper chest and area of abdomen which resolved over 5 minutes with no interventions- Lidia states she is prone to flushing VS monitored for additional half hour after chemo due to tachycardia VSS stable at D/C with her mom monitored for bleomycin reaction or response to IV steroids given earlier today Antiemetics instruction written with calendar with instructions to start tonight. Different options discussed. Copy of instructions in chart patient tolerated today's chemotherapy well understands to call with any changes or concerns at home next appts reviewed
--- NOTE | 2022-06-16 11:34 | ONC.NURNOTE ---
Post chemo follow up call: -slept well -taking the benadryl and tylenol at 6 hour intervals, 1800, 2400, 06 and will take one last dose at 12 today -no rash, no fever, no facial swelling -pulse check per pt 84 today -some minor nausea, controlled with compazine this am, understands to continue compazine today and tomorrow and as needed after Monday using lorazepam at HS -had eggs for breakfast and reports drinking water and gatorade - reports some chest heaviness with very deep inspiration, no cough no other SOB, she says this is a familiar feeling for her, because she is an anxious person she thinks it is related to feeling anxious, she was instructed that she needs to be seen with worsening of this symptom- also suggested that she can try a lorazepam during the day (even 1/2 tab) and see if this helps with the chest heaviness reminded that lorazepam and benadryl both cause drowsiness and not to take at the same time abstract writer asked that Linda call in tomorrow am with another check in
--- NOTE | 2022-06-21 10:03 | ONC.NURNOTE ---
Patient called regarding having a headache in her forehead constant since yesterday. It's not that bad just irritating. Has taken tylenol which hasn't been helpful-states drinking fluids-no temperature or sight changes-wanting to know if she can try Advil. Did ask patient to take COVID test. Denies history of headaches-isn't taking Zofran, has tried a dark room. Suggested it could be from Lupron shot and talked with director who said she could try 400mg Advil up to tree times a day.
--- NOTE | 2022-06-24 12:02 | ONC.NURNOTE ---
Received fax from [employer], emla cream denied.
[2022-06-30 08:35] LABS: Eosinophils Percent Auto 4.8 % (0.0-7.0); Hematocrit 37.5 % (33.0-51.0); Hemoglobin* 12.9 gm/dL (12.0-16.0); Immature Granulocytes Pct Auto 4.1 %; Mean Corpuscular HGB Conc 34 gm/dL (32-36); Mean Corpuscular Hemoglobin 32 pg (26-34); Mean Corpuscular Volume 94 fL (80-100); Monocytes Percent Auto 25.9 % (0.0-11.0); Neutrophils Percent Auto 14.2 % (42.0-72.0); Platelet Count* 270 K/uL (140-440); RDW Coefficient of Variation % 12.3 % (11.5-15.5); Red Blood Count 3.99 m/uL (4.00-5.20)
[2022-06-30 08:50] LABS: Albumin* 4.5 g/dL (3.3-5.0); Chloride* 107 mmol/L (96-114); Potassium* 3.9 mmol/L (3.6-5.1); Sodium* 140 mmol/L (135-149)
[2022-06-30 08:52] LABS: Creatinine* 0.6 mg/dL (0.5-1.5); Estimated Glomerular Filt Rate 128 ml/min
[2022-06-30 08:53] LABS: Alanine Aminotransferase* 15 U/L (4-35); Alkaline Phosphatase* 76 U/L (40-150); Aspartate Amino Transferase* 13 U/L (12-35); Bilirubin Total* 0.4 mg/dL (0.1-1.5); Blood Urea Nitrogen* 13 mg/dL (5-24); Carbon Dioxide* 25 mmol/L (20-32); Glucose* 90 mg/dL (60-115); Total Protein* 7.3 g/dL (6.0-8.3)
[2022-06-30 08:54] LABS: Calcium* 9.2 mg/dL (8.4-10.6)
[2022-06-30] MEDS: SODIUM CHLORIDE 0.9 % (FLUSH) 10 ML SYRINGE IVF ×2 (09:15→11:26)
[2022-06-30 09:19] LABS: Slide Review Reflex Yes; White Blood Count* 1.47 K/uL (4.50-11.00)
[2022-06-30 09:20] LABS: Slide Review Acceptable Review (Acceptable)
[2022-06-30] MEDS: HEPARIN 500 UNIT/5 ML SYRINGE IVF (11:26)
--- NOTE | 2022-06-30 12:58 | ONC.NURNOTE ---
See provider note from today. Chemo held today due to neutropenia. Evushield given and pt monitored for 1 hour and tolerated well. Pt to return in 1 week for blood draw and possible chemo.
[2022-07-07 09:38] VITALS: BP 116/79; PULSE 86; RESP 16; TEMP 36.4; O2SAT 96
[2022-07-07 09:54] LABS: Basophils Absolute Auto 0.03 K/uL (0.00-0.30); Basophils Percent Auto 0.6 % (0.0-3.0); Eosinophils Absolute Auto 0.04 K/uL (0.00-0.50); Eosinophils Percent Auto 0.8 % (0.0-7.0); Hemoglobin* 13.4 gm/dL (12.0-16.0); Immature Granulocytes Abs Auto 0.16 K/uL (0.00-0.30); Immature Granulocytes Pct Auto 3.3 %; Lymphocytes Percent Auto 20.4 % (20-44); Mean Corpuscular HGB Conc 34 gm/dL (32-36); Mean Corpuscular Hemoglobin 32 pg (26-34); Mean Corpuscular Volume 94 fL (80-100); Monocytes Percent Auto 8.2 % (0.0-11.0); Neutrophils Absolute Auto 3.27 K/uL (1.7-7.0); Neutrophils Percent Auto 66.7 % (42.0-72.0); Platelet Count* 270 K/uL (140-440); RDW Coefficient of Variation % 12.1 % (11.5-15.5); Red Blood Count 4.15 m/uL (4.00-5.20)
[2022-07-07 10:11] LABS: Albumin* 4.6 g/dL (3.3-5.0); Chloride* 107 mmol/L (96-114); Potassium* 3.8 mmol/L (3.6-5.1); Sodium* 140 mmol/L (135-149)
[2022-07-07 10:13] LABS: Creatinine* 0.6 mg/dL (0.5-1.5); Estimated Glomerular Filt Rate 128 ml/min
[2022-07-07 10:14] LABS: Alanine Aminotransferase* 17 U/L (4-35); Alkaline Phosphatase* 78 U/L (40-150); Aspartate Amino Transferase* 15 U/L (12-35); Bilirubin Total* 0.6 mg/dL (0.1-1.5); Blood Urea Nitrogen* 10 mg/dL (5-24); Calcium* 9.4 mg/dL (8.4-10.6); Carbon Dioxide* 25 mmol/L (20-32); Glucose* 106 mg/dL (60-115); Total Protein* 7.5 g/dL (6.0-8.3)
[2022-07-07 10:21] LABS: Slide Review Reflex Yes
[2022-07-07 10:22] LABS: Slide Review Acceptable Review (Acceptable)
[2022-07-07 10:46] VITALS: TEMP 36.1
[2022-07-07] MEDS: PALONOSETRON 0.25 MG/5 ML inj IV (10:46)
[2022-07-07] MEDS: ACETAMINOPHEN 325 MG TABLET 650 MG PO (10:46)
[2022-07-07] MEDS: OLANZapine 5 MG TAB.RAPDIS PO (10:47)
[2022-07-07] MEDS: dexAMETHasone 12 MG in 0.9 % SODIUM CHLORIDE 100 ml 100 ML 404.8 MG IVPB (10:47)
--- NOTE | 2022-07-07 11:02 | ONC.NURNOTE ---
alert and oriented. vs wnl. labs wnl. denies pain or discomfort. carmen po that appeal to her. avoiding citrus. was seen in ER 06/18 for mouth sores. after using magic mouth wash. relief. no mouth sores or reddness today. enc baking soda or salt in water swish and spit qid. discouraged spicey or citrus. states COLEMAN for 2 days after Lupron. states for 3 days after last chemo treatment neuropathy thumbs and third fingers. resolved. states after last treatment fatiqued and slept alot. had some nausea and dizziness. no emesis. resolved. states constipated after last treatment. no bm for 4 days. resolved with now miralax. on senna now. Lupron today also.
[2022-07-07] MEDS: FOSAPREPITANT 150 MG inj 150 MG in 0.9 % SODIUM CHLORIDE 250 ml 250 ML 510 MG IVPB (11:22)
[2022-07-07] MEDS: SODIUM CHLORIDE 0.9 % (FLUSH) 10 ML SYRINGE IVF (11:23)
[2022-07-07] MEDS: diphenhydrAMINE 25 MG in 0.9 % SODIUM CHLORIDE 100 ml 100 ML 402 MG IVPB (11:59)
[2022-07-07] MEDS: HEPARIN 500 UNIT/5 ML SYRINGE IVF (14:23)
[2022-07-21 08:34] LABS: Basophils Percent Auto 1.7 % (0.0-3.0); Hemoglobin* 11.9 gm/dL (12.0-16.0); Immature Granulocytes Pct Auto 0.8 %; Lymphocytes Percent Auto 53.4 % (20-44); Mean Corpuscular HGB Conc 34 gm/dL (32-36); Mean Corpuscular Hemoglobin 32 pg (26-34); Mean Corpuscular Volume 94 fL (80-100); Monocytes Percent Auto 21.2 % (0.0-11.0); Neutrophils Percent Auto 11.9 % (42.0-72.0); Platelet Count* 204 K/uL (140-440); RDW Coefficient of Variation % 12.6 % (11.5-15.5); Red Blood Count 3.73 m/uL (4.00-5.20)
[2022-07-21 08:47] LABS: Albumin* 4.3 g/dL (3.3-5.0); Chloride* 107 mmol/L (96-114); Sodium* 141 mmol/L (135-149)
[2022-07-21 08:50] LABS: Alanine Aminotransferase* 22 U/L (4-35); Alkaline Phosphatase* 74 U/L (40-150); Aspartate Amino Transferase* 17 U/L (12-35); Bilirubin Total* 0.4 mg/dL (0.1-1.5); Blood Urea Nitrogen* 9 mg/dL (5-24); Carbon Dioxide* 28 mmol/L (20-32); Creatinine* 0.6 mg/dL (0.5-1.5); Estimated Glomerular Filt Rate 128 ml/min; Total Protein* 7.2 g/dL (6.0-8.3)
[2022-07-21 08:51] LABS: Calcium* 9.1 mg/dL (8.4-10.6); Glucose* 134 mg/dL (60-115)
[2022-07-21 09:21] LABS: Slide Review Reflex Yes; White Blood Count* 1.18 K/uL (4.50-11.00)
--- NOTE | 2022-07-21 09:23 | ONC.NURNOTE ---
Critical lab: WBC 1.18. Notified clinic nurse taking care of patient.
[2022-07-21 09:28] LABS: Slide Review Acceptable Review (Acceptable)
--- NOTE | 2022-07-22 15:03 | URNOTE ---
Request received for authorization for Pegfilgrastim (Neulasta) ([id number]). Prior authorization is not required per [facility] Ref# [id number].
--- NOTE | 2022-07-26 15:55 | ONC.NURNOTE ---
PFT's done at [facility] and results given to Dr. Robertson and she gave verbal OK to go forward with Neulasta due to normal PFT'S. Mary Kate SMITH notified Results have been scanned into chart
[2022-07-28 08:15] VITALS: BP 118/83; PULSE 87; RESP 16; TEMP 37.1; O2SAT 96
[2022-07-28 08:28] LABS: Basophils Percent Auto 1.4 % (0.0-3.0); Eosinophils Percent Auto 2.2 % (0.0-7.0); Hematocrit 35.8 % (33.0-51.0); Immature Granulocytes Pct Auto 6.2 %; Lymphocytes Percent Auto 27.2 % (20-44); Mean Corpuscular HGB Conc 34 gm/dL (32-36); Mean Corpuscular Hemoglobin 32 pg (26-34); Mean Corpuscular Volume 95 fL (80-100); Monocytes Percent Auto 12.6 % (0.0-11.0); Neutrophils Percent Auto 50.4 % (42.0-72.0); Platelet Count* 271 K/uL (140-440); RDW Coefficient of Variation % 12.6 % (11.5-15.5); Red Blood Count 3.79 m/uL (4.00-5.20); White Blood Count* 3.57 K/uL (4.50-11.00)
[2022-07-28 08:40] LABS: Albumin* 4.2 g/dL (3.3-5.0); Chloride* 105 mmol/L (96-114); Sodium* 138 mmol/L (135-149)
[2022-07-28 08:41] LABS: Potassium* 3.7 mmol/L (3.6-5.1)
[2022-07-28 08:43] LABS: Alanine Aminotransferase* 23 U/L (4-35); Alkaline Phosphatase* 72 U/L (40-150); Aspartate Amino Transferase* 18 U/L (12-35); Bilirubin Total* 0.4 mg/dL (0.1-1.5); Blood Urea Nitrogen* 15 mg/dL (5-24); Carbon Dioxide* 25 mmol/L (20-32); Creatinine* 0.6 mg/dL (0.5-1.5); Est. Creatinine Clearance* 108.16; Estimated Glomerular Filt Rate 128 ml/min; Glucose* 187 mg/dL (60-115)
[2022-07-28 08:44] LABS: Calcium* 9.1 mg/dL (8.4-10.6)
[2022-07-28 08:45] LABS: Slide Review Reflex No
[2022-07-28] MEDS: dexAMETHasone 12 MG in 0.9 % SODIUM CHLORIDE 100 ml 100 ML 404.8 MG IVPB (09:38)
[2022-07-28] MEDS: ACETAMINOPHEN 325 MG TABLET 650 MG PO (09:39)
[2022-07-28] MEDS: PALONOSETRON 0.25 MG/5 ML inj IV (09:39)
[2022-07-28] MEDS: OLANZapine 5 MG TAB.RAPDIS PO (09:54)
[2022-07-28] MEDS: diphenhydrAMINE 25 MG in 0.9 % SODIUM CHLORIDE 100 ml 100 ML 402 MG IVPB (09:58)
[2022-07-28] MEDS: FOSAPREPITANT 150 MG inj 150 MG in 0.9 % SODIUM CHLORIDE 250 ml 250 ML 510 MG IVPB (10:20)
[2022-07-28] MEDS: DOXOrubicin 2 MG/ML inj 42 MG IVP (11:01)
[2022-07-28 13:07] VITALS: BP 80/44; PULSE 78; RESP 16; O2SAT 96
[2022-07-28 13:34] VITALS: BP 99/61; PULSE 92; RESP 16
--- NOTE | 2022-07-28 13:58 | PC.NURSE ---
Addendum entered by Susan Kern RN 07/29/22 13:19: Community Outreach Worker called pt to follow up her infusion yesterday. Pt states she slept all evening yesterday and during the night. Her boyfriend did wake her up to check on her and have her eat in the evening. Pt woke up at 7am today, felt rested, feels lazy. Pt instructed to call if she has any questions or concerns. Mary Kate Key APRN updated on pt's evening after chemo and her night. Original Note: Pt was present at [facility] today for cycle 2, day 1 of chemotherapy. Pt received ordered pre-meds including Benadryl 25 mg IV and Olanzapine 5 mg po. Prior to starting IV Benadryl, pt was drowsy and stated she didn't sleep well. RN administered all medications as directed. Pt slept throughout the whole infusion. She woke on demand to eat ice during Adriamycin. She woke on demand when RN asked to flush and de-access her port. Pt could not stay awake for more than a few seconds. RN did Neulasta On-Pro teaching with pt and her boyfriend, Jorge. She was in and out during that conversation. Upon getting up to discharge, pt had to sit back down and commented that she was unable to stay awake and that she felt out of it. RN asked pt to sit and stay a bit. Took VS and pt hypotensive (80/44). Discussed case with SONNY Katz and LUIS Hartmann. Pt was to stay for a little while for monitoring and LUIS Hartmann saw pt to evaluate. Eventually BP came up a little and after discussion, Jorge and Linda felt comfortable going home. Pt was wheeled out by STELLA Renee. Encouraged Jorge to wake Linda periodically and push fluids and make sure she eats. Also encouraged Jorge to call [facility] with any questions or concerns or to go to ER after hours. Support offered.
--- NOTE | 2022-08-05 14:51 | ONC.NURNOTE ---
Holder [employer] called [facility] in [place] and asked for PET scan disc to be mailed to [facility] radiology department so that it can be scanned and pushed to [facility] [address] for comparison on August 11.
[2022-08-05 14:56] VITALS: BP 116/78; PULSE 91; RESP 16; TEMP 36.2; O2SAT 99
--- NOTE | 2022-08-09 08:53 | ONC.NURNOTE ---
Voicemail on [facility] phone this morning from patient stating she tested positive for Covid last night and has T 101.7. She sounds very sick on the message and is asking if she should go to ER. [employer] called pt back. Pt reports 3 days ago her throat felt funny; she took a Covid test and it was negative. Yesterday she became very ill and tested positive for Covid on 2 tests. Reviewed with Mary Kate Wise APRN, who recommended pt be seen in ER for neutropenia workup and assessment of need for Covid treatments. [employer] notified Baldomero Glass RN in ER.
--- NOTE | 2022-08-09 09:16 | ONC.NURNOTE ---
Addendum entered by Gianna Allen RN 08/29/22 08:35: LATE ENTRY: Patient brought phone documentation of two negative home antigen tests 48 hours apart last . Patient able to do PET scan as scheduled, and ongoing appointments as well. Addendum entered by iGanna Allen RN 08/24/22 08:49: Patient's test from Monday night was negative. She was told that if tonights test is negative, she will come in for port access for PET scan as planned tomorrow. Addendum entered by Gianna Allen RN 08/22/22 11:37: Patient contacted, she is going to take a home antigen test on Monday and Monday this week and will call us with her results. If patient is still positive or is unable to do the testing, will need to treat her as positive and have an IV started vs. having patient in the [facility] for port care. Patient will also need to stay in her car until radiology is ready for her, they will need to be notified of her positive status. Addendum entered by Gianna Allen RN 08/19/22 14:32: LATE ENTRY: Discussed this patient with Infection Prevention 08/11/2022 and the following options were discussed due to treating for CURE for this patient. Patient is immunocompromised and is supposed to be out until 08/28/2022. However, patient needs to have a PET scan on 08/25/2022, which would be day 17. Options to consider from Infection Prevention, as patient needs this for treatment: Follow test-based strategy, which would be patient has resolution of fever AND symptoms have improved AND results are negative from at least two consecutive specimens collected at least 48 hours apart by using either an antigen test or NAAT.? If both are negative, then patient would no longer be contagious. (You can start the test-based strategy testing anytime after her 10 days of isolation.)? If not following test-based strategy:? Patient must wait in car, be called in by department, wear a hospital grade surgical mask or higher, go straight to department for test, all staff must be aware of situation and wear N95 or PAPR,? patient must leave as soon as possible with as few encounters as possible. Patient called prior to these recommendations and patient was agreeable to wearing an N95 for this test. LMOM for patient to call back and give her the above instructions for her scan. She will be at day 20 for her appointment in the cancer center, and treatment. Will await phone call back in order to educate all staff. Original Note: Pet CT moved from 08/11/22 to 08/25/22 d/t pt testing positive for Covid. [facility] called saying they have not been able to reach the patient; nsg to f/u with pt with Covid recovery and review upcoming appts.
[2022-08-25] MEDS: SODIUM CHLORIDE 0.9 % (FLUSH) 10 ML SYRINGE IVF ×2 (13:22→15:38)
[2022-08-25] MEDS: HEPARIN 500 UNIT/5 ML SYRINGE IVF (15:38)
[2022-08-29 09:33] LABS: Basophils Percent Auto 1.4 % (0.0-3.0); Eosinophils Percent Auto 4.5 % (0.0-7.0); Hematocrit 37.6 % (33.0-51.0); Hemoglobin* 12.6 gm/dL (12.0-16.0); Immature Granulocytes Pct Auto 0.2 %; Mean Corpuscular HGB Conc 34 gm/dL (32-36); Mean Corpuscular Hemoglobin 32 pg (26-34); Mean Corpuscular Volume 95 fL (80-100); Monocytes Percent Auto 8.6 % (0.0-11.0); Neutrophils Percent Auto 66.3 % (42.0-72.0); Platelet Count* 225 K/uL (140-440); RDW Coefficient of Variation % 14.4 % (11.5-15.5); Red Blood Count 3.94 m/uL (4.00-5.20); White Blood Count* 4.42 K/uL (4.50-11.00)
[2022-08-29 09:38] LABS: Slide Review Reflex No
[2022-08-29 09:47] LABS: Albumin* 4.6 g/dL (3.3-5.0); Chloride* 105 mmol/L (96-114)
[2022-08-29 09:48] LABS: Potassium* 4.2 mmol/L (3.6-5.1); Sodium* 140 mmol/L (135-149)
[2022-08-29 09:50] LABS: Alanine Aminotransferase* 17 U/L (4-35); Alkaline Phosphatase* 80 U/L (40-150); Aspartate Amino Transferase* 15 U/L (12-35); Bilirubin Total* 0.6 mg/dL (0.1-1.5); Blood Urea Nitrogen* 10 mg/dL (5-24); Carbon Dioxide* 31 mmol/L (20-32); Creatinine* 0.6 mg/dL (0.5-1.5); Est. Creatinine Clearance* 108.16; Estimated Glomerular Filt Rate 128 ml/min; Glucose* 104 mg/dL (60-115); Total Protein* 7.8 g/dL (6.0-8.3)
[2022-08-29 09:51] LABS: Calcium* 9.7 mg/dL (8.4-10.6)
[2022-08-30 08:28] VITALS: BP 120/77; PULSE 80; RESP 16; TEMP 35.9; O2SAT 97
[2022-08-30] MEDS: ACETAMINOPHEN 325 MG TABLET 650 MG PO (08:38)
[2022-08-30] MEDS: PALONOSETRON 0.25 MG/5 ML inj IV (08:58)
[2022-08-30] MEDS: diphenhydrAMINE 25 MG in 0.9 % SODIUM CHLORIDE 100 ml 100 ML 402 MG IVPB (09:14)
[2022-08-30] MEDS: dexAMETHasone 12 MG in 0.9 % SODIUM CHLORIDE 100 ml 100 ML 404.8 MG IVPB (09:34)
[2022-08-30] MEDS: LORazepam 0.5 MG TABLET PO (09:52)
[2022-08-30] MEDS: FOSAPREPITANT 150 MG inj 150 MG in 0.9 % SODIUM CHLORIDE 250 ml 250 ML 510 MG IVPB (09:52)
[2022-08-30] MEDS: DOXOrubicin 2 MG/ML inj 42 MG IVP (10:38)
[2022-09-02 14:20] VITALS: BP 121/76; PULSE 86; RESP 16; TEMP 36.1; O2SAT 95
[2022-09-15 14:52] LABS: Basophils Absolute Auto 0.07 K/uL (0.00-0.30); Basophils Percent Auto 1.1 % (0.0-3.0); Eosinophils Absolute Auto 0.11 K/uL (0.00-0.50); Eosinophils Percent Auto 1.7 % (0.0-7.0); Hematocrit 36.6 % (33.0-51.0); Hemoglobin* 12.2 gm/dL (12.0-16.0); Immature Granulocytes Abs Auto 0.21 K/uL (0.00-0.30); Immature Granulocytes Pct Auto 3.2 %; Lymphocytes Percent Auto 14.9 % (20-44); Mean Corpuscular HGB Conc 33 gm/dL (32-36); Mean Corpuscular Hemoglobin 32 pg (26-34); Mean Corpuscular Volume 96 fL (80-100); Monocytes Percent Auto 7.7 % (0.0-11.0); Neutrophils Absolute Auto 4.64 K/uL (1.7-7.0); Neutrophils Percent Auto 71.4 % (42.0-72.0); Platelet Count* 207 K/uL (140-440); Red Blood Count 3.82 m/uL (4.00-5.20)
[2022-09-15 15:04] LABS: Slide Review Reflex No
[2022-09-15 15:07] LABS: Albumin* 4.7 g/dL (3.3-5.0); Chloride* 102 mmol/L (96-114); Sodium* 139 mmol/L (135-149)
[2022-09-15 15:08] LABS: Potassium* 3.9 mmol/L (3.6-5.1)
[2022-09-15 15:10] LABS: Alanine Aminotransferase* 26 U/L (4-35); Alkaline Phosphatase* 95 U/L (40-150); Aspartate Amino Transferase* 18 U/L (12-35); Bilirubin Total* 0.5 mg/dL (0.1-1.5); Blood Urea Nitrogen* 10 mg/dL (5-24); Calcium* 9.5 mg/dL (8.4-10.6); Carbon Dioxide* 30 mmol/L (20-32); Creatinine* 0.7 mg/dL (0.5-1.5); Est. Creatinine Clearance* 92.71; Estimated Glomerular Filt Rate 123 ml/min; Glucose* 90 mg/dL (60-115)
[2022-09-20] MEDS: ACETAMINOPHEN 325 MG TABLET 650 MG PO (10:55)
[2022-09-20] MEDS: PALONOSETRON 0.25 MG/5 ML inj IV (10:55)
[2022-09-20] MEDS: diphenhydrAMINE 25 MG in 0.9 % SODIUM CHLORIDE 100 ml 100 ML 402 MG IVPB (11:02)
[2022-09-20] MEDS: OLANZapine 5 MG TAB.RAPDIS 2.5 MG PO (11:20)
[2022-09-20] MEDS: dexAMETHasone 12 MG in 0.9 % SODIUM CHLORIDE 100 ml 100 ML 404.8 MG IVPB (11:21)
[2022-09-20] MEDS: FOSAPREPITANT 150 MG inj 150 MG in 0.9 % SODIUM CHLORIDE 250 ml 250 ML 510 MG IVPB (11:40)
[2022-09-20] MEDS: DOXOrubicin 2 MG/ML inj 42 MG IVP (12:16)
[2022-09-20] MEDS: LORazepam 0.5 MG TABLET PO (12:18)
[2022-09-20] MEDS: HEPARIN 500 UNIT/5 ML SYRINGE IVF (14:34)
[2022-09-20] MEDS: SODIUM CHLORIDE 0.9 % (FLUSH) 10 ML SYRINGE IVF (14:34)
--- NOTE | 2022-09-20 14:51 | ONC.NURNOTE ---
Addendum entered by Vibha Hawk RN 10/04/22 15:23: Pt here for C3D15 ABVD (round #6). Order of premeds detailed below worked well last cycle. Pt reports she had no nausea and was not overly sedated. Original Note: Pt here for C3D1 ABVD (round #5). She reports last time with omitting the Olanzapine 5mg as pre-med, she had increased nausea, beginning immediately when she got home from her chemo appt. She took prochlorperazine with improvement but overall although less sedated pt had worse nausea. Today resumed Olanzapine at a smaller dose of 2.5mg. Refills called in for prochlorperazine and lorazepam as previously prescribed with #3 refills. Premeds given in the following order to spread out drowsiness side effects: Tylenol Aloxi Benadryl IV Olanzapine 2.5 mg PO Dex Emend Ativan 0.5 mg PO Pt denies nausea during chemo infusion. She is sleepy but easy to rouse and notes that she feels less sedated than previous times. At next infusion, review with pt how effective nausea management and significance of sedation following infusion appt.
[2022-09-30 09:39] VITALS: BP 119/79; PULSE 88; RESP 16; TEMP 36.3; O2SAT 98
[2022-10-04 10:11] VITALS: BP 103/66; PULSE 78; RESP 16; TEMP 36.1; O2SAT 98
[2022-10-04 10:33] LABS: Basophils Absolute Auto 0.07 K/uL (0.00-0.30); Basophils Percent Auto 0.9 % (0.0-3.0); Eosinophils Absolute Auto 0.32 K/uL (0.00-0.50); Hematocrit 34.1 % (33.0-51.0); Hemoglobin* 11.3 gm/dL (12.0-16.0); Immature Granulocytes Abs Auto 0.76 K/uL (0.00-0.30); Immature Granulocytes Pct Auto 9.4 %; Lymphocytes Percent Auto 12.5 % (20-44); Mean Corpuscular HGB Conc 33 gm/dL (32-36); Mean Corpuscular Hemoglobin 32 pg (26-34); Mean Corpuscular Volume 96 fL (80-100); Monocytes Percent Auto 7.5 % (0.0-11.0); Neutrophils Absolute Auto 5.32 K/uL (1.7-7.0); Neutrophils Percent Auto 65.7 % (42.0-72.0); Platelet Count* 140 K/uL (140-440); RDW Coefficient of Variation % 14.5 % (11.5-15.5); Red Blood Count 3.55 m/uL (4.00-5.20); White Blood Count* 8.09 K/uL (4.50-11.00)
[2022-10-04 10:47] LABS: Chloride* 106 mmol/L (96-114); Sodium* 140 mmol/L (135-149)
[2022-10-04 10:50] LABS: Alanine Aminotransferase* 18 U/L (4-35); Alkaline Phosphatase* 83 U/L (40-150); Aspartate Amino Transferase* 14 U/L (12-35); Bilirubin Total* 0.2 mg/dL (0.1-1.5); Blood Urea Nitrogen* 12 mg/dL (5-24); Carbon Dioxide* 27 mmol/L (20-32); Creatinine* 0.6 mg/dL (0.5-1.5); Est. Creatinine Clearance* 108.16; Estimated Glomerular Filt Rate 128 ml/min; Total Protein* 6.8 g/dL (6.0-8.3)
[2022-10-04 10:51] LABS: Calcium* 8.8 mg/dL (8.4-10.6); Glucose* 96 mg/dL (60-115); Slide Review Acceptable Review (Acceptable); Slide Review Reflex Yes
[2022-10-04] MEDS: ACETAMINOPHEN 325 MG TABLET 650 MG PO (11:21)
[2022-10-04] MEDS: PALONOSETRON 0.25 MG/5 ML inj IV (11:24)
[2022-10-04] MEDS: diphenhydrAMINE 25 MG in 0.9 % SODIUM CHLORIDE 100 ml 100 ML 402 MG IVPB (11:29)
[2022-10-04] MEDS: OLANZapine 5 MG TAB.RAPDIS 2.5 MG PO (11:50)
[2022-10-04] MEDS: dexAMETHasone 12 MG in 0.9 % SODIUM CHLORIDE 100 ml 100 ML 404.8 MG IVPB (11:51)
[2022-10-04] MEDS: FOSAPREPITANT 150 MG inj 150 MG in 0.9 % SODIUM CHLORIDE 250 ml 250 ML 510 MG IVPB (12:18)
[2022-10-04] MEDS: LORazepam 0.5 MG TABLET PO (12:46)
[2022-10-04] MEDS: DOXOrubicin 2 MG/ML inj 42 MG IVP (12:50)
[2022-10-17 08:01] LABS: Basophils Percent Auto 0.5 % (0.0-3.0); Eosinophils Percent Auto 1.9 % (0.0-7.0); Hematocrit 33.2 % (33.0-51.0); Immature Granulocytes Pct Auto 18.1 %; Lymphocytes Percent Auto 9.1 % (20-44); Mean Corpuscular HGB Conc 33 gm/dL (32-36); Mean Corpuscular Hemoglobin 32 pg (26-34); Mean Corpuscular Volume 97 fL (80-100); Monocytes Percent Auto 5.2 % (0.0-11.0); Neutrophils Percent Auto 65.2 % (42.0-72.0); Platelet Count* 182 K/uL (140-440); Red Blood Count 3.41 m/uL (4.00-5.20); White Blood Count* 12.85 K/uL (4.50-11.00)
[2022-10-17 08:19] LABS: Albumin* 4.1 g/dL (3.3-5.0); Chloride* 106 mmol/L (96-114); Sodium* 140 mmol/L (135-149)
[2022-10-17 08:21] LABS: Bilirubin Total* 0.2 mg/dL (0.1-1.5); Creatinine* 0.8 mg/dL (0.5-1.5); Est. Creatinine Clearance* 81.12; Estimated Glomerular Filt Rate 105 ml/min
[2022-10-17 08:22] LABS: Alanine Aminotransferase* 20 U/L (4-35); Alkaline Phosphatase* 94 U/L (40-150); Aspartate Amino Transferase* 14 U/L (12-35); Blood Urea Nitrogen* 14 mg/dL (5-24); Carbon Dioxide* 28 mmol/L (20-32); Glucose* 124 mg/dL (60-115); Total Protein* 6.8 g/dL (6.0-8.3)
[2022-10-17 08:30] LABS: Slide Review Reflex Yes
[2022-10-17 09:12] LABS: Slide Review Acceptable Review (Acceptable)
[2022-10-17] MEDS: PALONOSETRON 0.25 MG/5 ML inj IV (09:35)
[2022-10-17] MEDS: ACETAMINOPHEN 325 MG TABLET 650 MG PO (09:35)
[2022-10-17] MEDS: diphenhydrAMINE 25 MG in 0.9 % SODIUM CHLORIDE 100 ml 100 ML 402 MG IVPB (09:46)
[2022-10-17] MEDS: dexAMETHasone 12 MG in 0.9 % SODIUM CHLORIDE 100 ml 100 ML 404.8 MG IVPB (10:09)
[2022-10-17] MEDS: OLANZapine 5 MG TAB.RAPDIS 2.5 MG PO (10:09)
[2022-10-17] MEDS: FOSAPREPITANT 150 MG inj 150 MG in 0.9 % SODIUM CHLORIDE 250 ml 250 ML 510 MG IVPB (10:30)
[2022-10-17] MEDS: LORazepam 0.5 MG TABLET PO (11:06)
[2022-10-17] MEDS: DOXOrubicin 2 MG/ML inj 42 MG IVP (11:12)
[2022-10-17] MEDS: HEPARIN 500 UNIT/5 ML SYRINGE IVF (12:42)
[2022-10-17] MEDS: SODIUM CHLORIDE 0.9 % (FLUSH) 10 ML SYRINGE IVF (12:42)
[2022-10-31 15:11] LABS: Basophils Percent Auto 1.9 % (0.0-3.0); Eosinophils Percent Auto 6.2 % (0.0-7.0); Hematocrit 32.6 % (33.0-51.0); Hemoglobin* 10.7 gm/dL (12.0-16.0); Lymphocytes Percent Auto 39.8 % (20-44); Mean Corpuscular HGB Conc 33 gm/dL (32-36); Mean Corpuscular Hemoglobin 31 pg (26-34); Mean Corpuscular Volume 95 fL (80-100); Neutrophils Percent Auto 34.1 % (42.0-72.0); Platelet Count* 259 K/uL (140-440); Red Blood Count 3.42 m/uL (4.00-5.20)
[2022-10-31 15:18] LABS: Slide Review Reflex No; White Blood Count* 1.61 K/uL (4.50-11.00)
[2022-10-31 15:31] LABS: Albumin* 4.6 g/dL (3.3-5.0); Chloride* 103 mmol/L (96-114); Potassium* 4.2 mmol/L (3.6-5.1); Sodium* 142 mmol/L (135-149)
[2022-10-31 15:34] LABS: Alanine Aminotransferase* 19 U/L (4-35); Alkaline Phosphatase* 83 U/L (40-150); Aspartate Amino Transferase* 16 U/L (12-35); Bilirubin Total* 0.4 mg/dL (0.1-1.5); Blood Urea Nitrogen* 10 mg/dL (5-24); Carbon Dioxide* 30 mmol/L (20-32); Creatinine* 0.5 mg/dL (0.5-1.5); Estimated Glomerular Filt Rate 133 ml/min; Glucose* 90 mg/dL (60-115); Total Protein* 7.3 g/dL (6.0-8.3)
[2022-10-31 15:35] LABS: Calcium* 9.2 mg/dL (8.4-10.6)
[2022-10-31 16:08] VITALS: RESP 14; TEMP 36.1
--- NOTE | 2022-10-31 16:13 | ONC.NURNOTE ---
Linda aware of lab results.she just meets the lower limits to treat. Mary Kate Wise APRN. and prob. Aponte tomorrow
[2022-11-01 10:18] VITALS: BP 115/73; PULSE 86; RESP 16; TEMP 36.1; O2SAT 97
[2022-11-01] MEDS: ACETAMINOPHEN 325 MG TABLET 650 MG PO (10:47)
[2022-11-01] MEDS: PALONOSETRON 0.25 MG/5 ML inj IV (10:47)
[2022-11-01] MEDS: diphenhydrAMINE 25 MG in 0.9 % SODIUM CHLORIDE 100 ml 100 ML 420 MG IVPB (10:59)
[2022-11-01] MEDS: 0.9 % SODIUM CHLORIDE 250 ml IV (11:00)
[2022-11-01] MEDS: dexAMETHasone 12 MG in 0.9 % SODIUM CHLORIDE 100 ml 100 ML 404.8 MG IVPB (11:21)
[2022-11-01] MEDS: OLANZapine 5 MG TAB.RAPDIS 2.5 MG PO (11:21)
[2022-11-01] MEDS: FOSAPREPITANT 150 MG inj 150 MG in 0.9 % SODIUM CHLORIDE 250 ml 250 ML 760 MG IVPB (11:41)
[2022-11-01] MEDS: LORazepam 0.5 MG TABLET PO (12:05)
[2022-11-01] MEDS: DOXOrubicin 2 MG/ML inj 42 MG IVP (12:09)
--- NOTE | 2022-11-01 12:30 | PC.NURSE ---
Pt present at [facility] today for last cycle of ABVD chemotherapy. Pt is scheduled for radiation simulation tomorrow, 11/02/2022 in [place]. Linda and her mother are wondering if it is too soon after chemo to have the simulation or if they should let the chemo have time to work before doing the CT sim. Pt is planning to start treatment ~11/22/2022. RN called [facility] and spoke with an RN on Dr. Cuadra's team ([phone]) to share Linda and her mother's questions. RN added pt on for a MD visit prior to simulation to have their questions answered. [facility] will contact Linda directly with the appropriate check in time.
== END 2022-11-21 23:59 | disposition home or self-care (01) ==
LOC: CCIC 08:45
PROVIDERS: Clinical Nurse Specialist; Internal Medicine Hematology & Oncology; Nurse Practitioner Family; Physician Assistant; PCP Family Medicine; Referring Provider Family Medicine; Visit Provider Internal Medicine Hematology & Oncology
DX: Z51.11 Encounter for antineoplastic chemotherapy (principal); C81.12 Nodular sclerosis Hodgkin lymphoma, intrathoracic lymph nodes; D70.9 Neutropenia, unspecified
CPT/HCPCS: 36415; 36591; 80053; 83615; 84702; 85025; 85651; 96366; 96372; 96376; 96377; 96401; 96411; 96413; 96415; 96417; 99202; 99205; 99211; 99212; 99214; 99215; J2506; J9000; A9270; J1100; J1200; J1453; J1642; J1950; J2469; J7050; J9040; J9130; J9360

== ENCOUNTER 2023-02-21 13:48 | Outpatient (CLI) | payer BC, SELFPAY ==
--- NOTE | 2023-02-21 14:00 | CRLHL7_ITS ---
For Patients: As a result of the Century Cures Act, medical imaging exams and procedure reports are released immediately into your electronic medical record. You may view this report before your referring provider. If you have questions, please contact your health care provider. BILATERAL BREAST MRI WITHOUT AND WITH GADOLINIUM CLINICAL HISTORY: 27-year-old female with elevated risk of breast cancer due to history of chest radiation. INDICATION FOR BREAST MRI: Screening breast MRI in this high-risk woman. COMPARISON STUDIES: None. CONTRAST: 15 cc of Dotarem. TECHNIQUE: The patient was positioned prone using a breast coil. Multiple imaging sequences were obtained using 1-1.5 mm thick slices with no gap. The image sequences include T2-weighted STIR in the axial plane, T1-weighted nonfat-saturated gradient echo in the axial plane, pre- and post-contrast T1-weighted FLASH 3D with fat suppression in the axial plane, and T1-weighted FLASH high resolution 3D with fat suppression in the sagittal plane. Image post-processing was performed on a [employer] workstation. Complex 3D rendering including maximum intensity projections (MIPS) and volumetric renderings were obtained to optimize visualization of the extent of pathology and relationship to the nipple, skin, and chest wall. This aids in determining feasibility of breast conservation surgery. Subtraction, multiplanar reconstruction, mean curve determination, and angiogenesis mapping were also performed. The study was technically adequate. FINDINGS: Amount of Fibroglandular Tissue: Heterogeneous fibroglandular tissue. Breast Background Enhancement: Mild. RIGHT Breast: No suspicious areas of enhancement. LEFT Breast: No suspicious areas of enhancement. Lymph Nodes: No adenopathy. Right-sided chest port catheter in place. IMPRESSIONS AND RECOMMENDATIONS: Negative, there is no MRI evidence of malignancy in either breast. Continue annual screening with breast MRI. BI-RADS Category 1: Negative Dictated by Sepideh Smith MD @ 02/28/2023 3:48:57 PM sanjuanaj/Dictated by: Sepideh Smith MD @ 02/28/2023 3:48:00 PM (Electronically Signed)
== END 2023-02-21 13:49 | disposition home or self-care (01) ==
LOC: MRI 13:50
PROVIDERS: PCP Family Medicine; Visit Provider Internal Medicine Hematology & Oncology
DX: C81.90 Hodgkin lymphoma, unspecified, unspecified site (principal)
CPT/HCPCS: 77049; A9575

== ENCOUNTER 2023-02-23 13:23 | Outpatient (CLI) | payer BC, SELFPAY ==
--- NOTE | 2023-02-23 14:00 | CRLHL7_ITS ---
For Patients: As a result of the 21st Century Cures Act, medical imaging exams and procedure reports are released immediately into your electronic medical record. You may view this report before your referring provider. If you have questions, please contact your health care provider. EXAM: PET-CT SKULL BASE TO THIGH CLINICAL INFORMATION: 27-yo female with Hodgkin`s lymphoma. Prior chemotherapy. Prior radiation. Patient is referred for further characterization. TECHNIQUE: Radiopharmaceutical: 11.90 mCi of 18F-FDG Intravenous injection site: Port Uptake time: 52 minutes Blood glucose level at the time of injection: 78 mg/dL Field of view: Skull base to mid-thighs CT protocol: The low-dose, free-breathing, noncontrast CT performed as part of this study is designed for the purposes of attenuation correction and lesion localization, and it is neither sufficient, nor it should be substituted for diagnostic purposes. COMPARISON: PET-CT 08/25/2022. CT chest 02/15/2022 FINDINGS: Physiologic background liver standardized uptake value (SUV mean and SUV max) reported for comparison between PET studies: 2.4 and 3.0. Physiologic background mediastinal blood pool standardized uptake value (SUV mean and SUV max) reported for comparison between PET studies: 1.9 and 2.3. Visualized head and neck: Physiologic uptake in the visualized portions of the brain. Bilateral palatine tonsil uptake. For example: Right palatine tonsil SUV max 6.3. Previously 6.4. Left palatine tonsil SUV max 8.0. Previously 5.5 Head and neck lymph nodes: No enlarged or hypermetabolic cervical chain lymph nodes. Slightly increased uptake within a small right level 2 lymph node for example: Right level 2 lymph node, 0.4 cm short axis, SUV max 2.4. Previously 1.9. Lungs: No suspicious tracer avid pulmonary nodules or abnormal uptake. Thoracic lymph nodes: Mildly increased uptake within a borderline prominent high left prevascular lymph node and a bandlike area of soft tissue density in the anterior superior mediastinum. Adjacent right-sided anterior mediastinal lymph nodes demonstrate variable uptake. No suspicious hilar or axillary lymphadenopathy. For example: -high left pre-vascular lymph node, 0.9 cm short axis, SUV max 2.6 (fused image 60). Previously 1.7. -bandlike soft tissue density anterior superior mediastinum, 0.7 cm transverse thickness, SUV max 3.1 (fused image 76). Previously 2.0. -right-sided lower right anterior mediastinal becky mass, 2.0 cm short axis, SUV max 2.7 (fused image 90). Previously 2.1 cm short axis, SUV max 2.3. Other chest findings: Physiologic myocardial uptake. Right chest port with central catheter tip position in the right atrium. Hepatobiliary: No abnormal uptake. Spleen: No abnormal uptake. Spleen SUV max 2.6. Pancreas: No abnormal uptake. Adrenals: No abnormal uptake. Kidneys and bladder: No abnormal uptake or obstruction. Physiologically excreted tracer activity within the urinary bladder. Bowel and peritoneum: No suspicious bowel uptake or abnormality. Unremarkable appendix. Pelvic organs: No abnormal uptake. IUD Abdominopelvic lymph nodes: No new or enlarged hypermetabolic abdominopelvic lymph nodes. Musculoskeletal, soft tissues, skin: No suspicious tracer avid osseous lesions or abnormal uptake. Other: Trace pelvic fluid. IMPRESSION: 1. Variable uptake within a borderline prominent high prevascular lymph node, superior mediastinal soft tissue density and mildly enlarged right-sided anterior mediastinal lymph nodes as detailed in the findings. No new or progressive sites of hypermetabolic lymphadenopathy otherwise noted in the neck, abdomen, pelvis or inguinal regions. Deauville 3. 2. No suspicious tracer avid lung nodules or abnormal solid organ uptake in the upper abdomen. 3. No suspicious tracer avid osseous lesions. 4. Other nonacute findings as detailed in the body of the report. Dictated by Lobito Jenkins MD @ 02/28/2023 7:20:27 PM (Electronically Signed)
== END 2023-02-23 13:24 | disposition home or self-care (01) ==
LOC: RAD 13:26
PROVIDERS: PCP Family Medicine; Visit Provider Internal Medicine Hematology & Oncology
DX: C81.90 Hodgkin lymphoma, unspecified, unspecified site (principal)
CPT/HCPCS: 78815; A9552

== ENCOUNTER 2023-03-01 08:30 | Outpatient (RCR) | payer BC, SELFPAY ==
[2023-02-23 13:52] LABS: Basophils Absolute Auto 0.03 K/uL (0.00-0.30); Basophils Percent Auto 0.6 % (0.0-3.0); Eosinophils Absolute Auto 0.13 K/uL (0.00-0.50); Eosinophils Percent Auto 2.5 % (0.0-7.0); Hematocrit 37.8 % (33.0-51.0); Hemoglobin* 12.7 gm/dL (12.0-16.0); Immature Granulocytes Abs Auto 0.01 K/uL (0.00-0.30); Immature Granulocytes Pct Auto 0.2 %; Lymphocytes Percent Auto 17.6 % (20-44); Mean Corpuscular HGB Conc 34 gm/dL (32-36); Mean Corpuscular Hemoglobin 30 pg (26-34); Mean Corpuscular Volume 90 fL (80-100); Monocytes Percent Auto 6.5 % (0.0-11.0); Neutrophils Percent Auto 72.6 % (42.0-72.0); Platelet Count* 183 K/uL (140-440); RDW Coefficient of Variation % 12.7 % (11.5-15.5); Red Blood Count 4.18 m/uL (4.00-5.20); White Blood Count* 5.22 K/uL (4.50-11.00)
[2023-02-23 13:54] LABS: Slide Review Reflex No
[2023-02-23 14:18] LABS: Albumin* 4.3 g/dL (3.3-5.0); Chloride* 103 mmol/L (96-114); Potassium* 3.7 mmol/L (3.6-5.1); Sodium* 136 mmol/L (135-149)
[2023-02-23 14:20] LABS: Creatinine* 0.5 mg/dL (0.5-1.5); Est. Creatinine Clearance* 129.79; Estimated Glomerular Filt Rate 133 ml/min
[2023-02-23 14:21] LABS: Alanine Aminotransferase* 15 U/L (4-35); Alkaline Phosphatase* 111 U/L (40-150); Anion Gap 10 mEq/L (7-15); Aspartate Amino Transferase* 15 U/L (12-35); Bilirubin Total* 0.5 mg/dL (0.1-1.5); Blood Urea Nitrogen* 15 mg/dL (5-24); Carbon Dioxide* 23 mmol/L (20-32); Glucose* 75 mg/dL (60-115); Lactate Dehydrogenase* 162 U/L (120-246); Total Protein* 7.3 g/dL (6.0-8.3)
[2023-02-23 14:22] LABS: Calcium* 9.5 mg/dL (8.4-10.6)
[2023-02-23 14:40] LABS: Erythrocyte SedimentationRate* 16 mm/hr (2-20)
== END 2023-06-04 23:59 | disposition home or self-care (01) ==
LOC: CCIC 08:30
PROVIDERS: PCP Family Medicine; Referring Provider Family Medicine; Visit Provider Internal Medicine Hematology & Oncology
DX: C81.12 Nodular sclerosis Hodgkin lymphoma, intrathoracic lymph nodes (principal)
CPT/HCPCS: 36415; 36591; 80053; 83615; 85025; 85651; 99211; 99212; 99215

== ENCOUNTER 2023-05-24 13:43 | Outpatient (CLI) | payer BC, SELFPAY | END 2023-05-24 13:44 | disposition home or self-care (01) | PROVIDERS: PCP Family Medicine; Visit Provider Family Medicine | DX: Z13.220 Encounter for screening for lipoid disorders (principal); C81.12 Nodular sclerosis Hodgkin lymphoma, intrathoracic lymph nodes; E66.01 Morbid (severe) obesity due to excess calories; R53.83 Other fatigue | CPT/HCPCS: 80053; 80061; 83615; 84443 ==

== ENCOUNTER 2023-09-18 14:27 | Outpatient (CLI) | payer BC, SELFPAY ==
--- NOTE | 2023-09-18 15:30 | CT_ITS ---
Patient: ZUHAIR POTTER Facility:?[facility] Patient ID:?[id number] Site Patient ID:?[id number]. Site :?1997 Study:?CT-Chest/Abd/Pelvis 77CC ISOVUE 370 AND WATER PREP-09/18/2023 3:54:54 PM Ordering Physician:?DR. CONSTANTINO Final Report: INDICATION: FOLLOW UP 6 MONTH FOR CANCER TECHNIQUE: CT chest, abdomen and pelvis acquired with 77 mL Isovue 370 IV contrast. COMPARISON: 02/23/2023 PET-CT, 08/25/2022 PET-CT, 02/12/[address] FINDINGS: CHEST: Cardiovascular structures: Heart size is normal. Thoracic aorta and main pulmonary artery are normal in caliber. Right chest port has been removed since previous exam. Mediastinum and norberto: Upper mediastinal adenopathy is unchanged from the most recent PET-CT. For example, a node on image 42 of series 2 measures 3.1 x 1.9 cm versus 3.2 x 2.0 cm remeasured on the prior study with similar technique. No new adenopathy. Lungs and pleura: Lungs and pleural spaces are clear. No suspicious nodules, infiltrates, or effusions. Chest wall and axilla: No adenopathy by size criteria. Bones: No suspicious bone lesions. Unremarkable for age. ABDOMEN AND PELVIS: Liver: Unremarkable. Gallbladder and bile ducts: Unremarkable. Pancreas: Unremarkable. Spleen: Unremarkable. Adrenal glands: Unremarkable. Kidneys: Unremarkable. GI tract: Unremarkable. Vascular structures: Unremarkable. Lymph nodes: Unremarkable. Miscellaneous: Unremarkable. No free air or significant free fluid. Pelvic Organs: IUD in the uterus. Dominant follicle in the right ovary and small amount of pelvic free fluid, likely physiologic.. Bones: No suspicious bone lesions. Unremarkable for age. IMPRESSION: Stable mediastinal adenopathy. No other significant findings. Please note that all CT scans at this facility use dose modulation, iterative reconstruction, and/or weight-based dosing when appropriate to reduce radiation dose to as low as reasonably achievable. Dictated by Pranav Hardin MD @ 09/19/2023 10:52:30 AM Signed by:?Pranav Hardin MD @09/19/2023 10:52:30 AM (Electronic Signature)
== END 2023-09-18 14:28 | disposition home or self-care (01) ==
LOC: CT 14:28
PROVIDERS: PCP Family Medicine; Visit Provider Internal Medicine Hematology & Oncology
DX: C81.90 Hodgkin lymphoma, unspecified, unspecified site (principal)
CPT/HCPCS: 71260; 74177; Q9967

== ENCOUNTER 2023-12-26 15:35 | Outpatient (CLI) | payer BC, SELFPAY ==
--- OUTSIDE RECORDS SUMMARY | 2023-12-28 11:46 | XMS_ITS | Referral Summary ---
Author Organization [facility] Address [address] [place] [address] Care Team Providers Care Entry Level Project Engineer Name Role Phone No Ref-Primary, Physician Primary Care Provider Allergies No known active allergies Medications Medication Sig Dispensed Refills Start Date End Date Status hydrOXYzine (VISTARIL) 25 MG capsuleIndications:R laly Take 1 capsule (25 mg) by mouth 3 times daily as needed for itching 30 capsule 09/12/2020 Active Active Problems No known active problems Social History Tobacco Use Types Packs/Day Years Used Date Smoking Tobacco: Never Smokeless Tobacco: Never Adolescent Education Answer Date Record ed Getting School Help Needed Not on file 03/18 Sex and Gender Information Value Date Recorded Sex Assigned at Not on file Gender Identity Not on file Sexual Orientation Not on file Last Filed Vital Signs Vital Sign Reading Time Taken Comments Blood Pressure 120/84 09/12/2020 4:37 PM CDT Pulse 90 09/12/2020 4:37 PM CDT Temperature 37.1 ??C (98.7 ??F) 09/12/2020 4:37 PM CD T Respiratory Rate 16 09/12/2020 4:37 PM CDT Oxygen Saturation 100% 09/12/2020 4:37 PM CDT Inhaled Oxygen Concentration - - Weight 59 kg (130 lb) 09/12/2020 4:37 PM CDT Height 154.9 cm (5' 1) 09/12/2020 4:37 PM CDT Body Mass Index 24.56 09/12/2020 4:37 PM CDT Plan of Treatment Not on file Care Teams Entry Level Project Engineer Relationship Specialty Start Date End Date No Ref-Primary, Physician PCP - General 09/12/20
--- OUTSIDE RECORDS SUMMARY | 2023-12-28 11:46 | XMS_ITS | Referral Summary ---
Author Organization [facility] Address [address] [place] [address] Care Team Providers Care Glue Line Operator Name Role Phone Unavailable Primary Care Provider Unavailabl e Source Comments Patient records contain information from all sites at [facility]. For routine questions regarding patient records, call [phone] during business hours, M-F 8:00 AM - 5:00 PM Central Time. Record requests for emergency care only can be directed to [phone] at any time.[facility] Allergies No known active allergies Medications Medication Sig Dispensed Refills Start Date End Date Status escitalopram (LEXAPRO) 20 mg tablet Take 20 mg by mouth. 02/26/2021 Active levothyroxine (Synthroid) 50 mcg tabletIndications:No dular Sclerosis Classical Hodgkin Lymphoma Intrathoracic Lymph Nodes (HCC) Take 1 tablet (50 mcg total) by mouth daily. 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 09/01/2022 Cancer Staging:Clinical stage from 05/09/2022:Stage I(Hodgkin lymphoma, A - Asymptomatic) - Unsigned Social History Tobacco Use Types Packs/Day Years Used Date Smoking Tobacco: Never Smokeless Tobacco: Never Tobacco Cessation:Counseling Given: Not Answered Nutrition Answer Date Recorded Nutrition: EVOO Fat Source Unknown 08/28 Nutrition: Servings of Fruits/Vegetables per Day Not on file 08/28/2020 Dental Answer Date Recorded Dental: Regular Dentist Unknown 08/29/19 Sex and Gender Information Value Date Recorded Sex Assigned at Female 09/13/2022 1:51 PM CDT Gender Identity Female 09/13/2022 1:51 PM CDT Sexual Orientation Straight 09/13/2022 1: 51 PM CDT Last Filed Vital Signs Vital Sign Reading Time Taken Comments Blood Pressure 110/70 09/09/2022 7:56 AM CDT Pulse 85 09/09/2022 7:56 AM CDT Temperature 36 ??C (96.8 ??F) 09/09/2022 7:56 AM CDT Respiratory Rate - - Oxygen Saturation - - Inhaled Oxygen Concentration - - Weight 69.7 kg (153 lb 10.6 oz) 12/02/2022 2:25 PM CDT Height - - Body Mass Index - - Plan of Treatment Not on file [address] [facility] [id number]
--- OUTSIDE RECORDS SUMMARY | 2023-12-28 11:46 | XMS_ITS ---
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 Past Plans No past plan information found. Radiation Treatments * Plan Last Treated On Elapsed Days Fractions Treated Prescribed Fraction Dose Prescribed Total Dose [id number] 12/05/2022 13 10 of 10 200 cGy 2,000 cGy Reference Point Last Treated On Elapsed Days Session Dose Total Dose [id number] 12/05/2022 13 200 cGy 2,000 cGy
--- OUTSIDE RECORDS SUMMARY | 2023-12-28 11:46 | XMS_ITS ---
Author Organization [facility] Address [address] [place] [address] Care Team Providers Care Sales Vendor Name Role Phone Unavailable Unavailable Unavailable Surgery Details Not on file Complications Check Surgery Details section. Procedure Estimated Blood Loss Check Surgery Details section. Procedure Findings Check Surgery Details section. Procedure Specimens Taken Check Surgery Details section.
--- OUTSIDE RECORDS SUMMARY | 2023-12-28 11:46 | XMS_ITS | Clinical Summary ---
Author Organization [facility] Address [address] [place] [address] Care Team Providers Care Certified Medical Dosimetrist Name Role Phone No Ref-Primary, Physician Primary [...] of Treatment Not on file Care Teams Certified Medical Dosimetrist Relationship Specialty Start Date End Date No Ref-Primary, Physician PCP - General 09/12/20
--- OUTSIDE RECORDS SUMMARY | 2023-12-28 11:46 | XMS_ITS | Clinical Summary ---
Author Organization [facility] Address [address] [place] [address] Care Team Providers Care Feeder Operator Automatic Name Role Phone Unavailable Primary Care Provider Unavailabl e Source Comments Patient records contain information from all sites at [facility]. For routine questions regarding patient records, call [phone] during business hours, M-F 8:00 AM - 5:00 PM Central Time. Record requests for emergency care only can be directed to [phone] at any time.[facility] Allergies No known active allergies Medications Medication [...] I(Hodgkin lymphoma, A - Asymptomatic) - Unsigned Family History Medical History Relation Name Comments Breast cancer Paternal Grandmother Relation Name Status Comments Paternal Grandmother Social History Tobacco Use Types [...] Health Maintenance Due Date Last Done Comments HIV Screening 1997 Hepatitis C Screening 1997 Thyroid Stimulating Hormone (TSH) test for thyroid function 1997 Pneumococcal vaccine (0-64 y ears) (1 of 2 - PCV) 2003 Zoster Vaccines (1 of 2) 2016 DTaP,Tdap,and Td Vaccines (7 - Td or Tdap) 09/11/2019 09/10/2009, 02/05/2003, 12/27/1999, Additional history exists COVID-19 Vaccine (3 - Pfizer risk series) 10/30/2020 10/02/2020, 09/11/2020 Depression Screening (Annual PHQ-2) 06/26/2023 Influenza Vaccine (#1) 2024 Cervical Cancer Screening 02/04/2025 02/04/2022 Hepatitis B Vaccines Completed 06/09/1998, 06/09/1998, 1997, Additional history exists HPV Vaccines Completed 09/20/2011, 08/25, 06/09/2011, Additional history exists [address] [facility] [id number]
--- OUTSIDE RECORDS SUMMARY | 2023-12-28 11:46 | XMS_ITS | Clinical Summary ---
Author Organization [facility] Address [place], [place] [address] Care Team Providers Care Yard Specialist Name Role Phone ToryDee Bailey DO Primary Care Provide r Mamie Warren RN Unavailable [phone] Allergies No known active allergies Medications Medication Sig Dispensed Refills Start Date End Date Status escitalopram oxalate (LEXAPRO) 20 mg tablet Take 20 mg by mouth once daily. 02/26/2021 Active Active Problems Problem Noted Date Diagnosed Date Mediastinal mass 05/09/2022 Overview: S/p right VATS, mediastinal mass biopsy performed by Dr. Paulino 05/09/2022 Immunizations Name Administration Dates Next Due DTaP 02/05/2003, 0,06/09/1998,1997 ,1997 HIB-HepB (Comvax) 06/09/1998,1997,06/06/19 97 Hepatitis A (Peds) 06/09/2011,09/10/2009 Hepatitis B, Unspecified 06/09/1998,1997,1 08/07/1996 Hib Conjugate, Unspecified 06/09/1998,1997 ,1997 Human Papilloma Virus Vaccine 09/20/2011, 011,02/10/2010 Inactivated Polio Vaccine 02/05/2003,06/09/1998, 1997,1997 MMR 02/05/2003,07/08/1998 Meningococcal Vaccine (Menactra) 12/25/2015,01/24 Polio Virus, Unspecified 06/09/1998,1997,1 08/07/1996 Tdap 09/10/2009 Varicella Vaccine 09/10/2009,07/08/1998 Family History Medical History Relation Name Comments Good Health Father Diabetes type II Maternal Grandmother Hypertension Maternal Grandmother Diabetes type II Maternal Uncle Hypertension Maternal Uncle Good Health Mother Cancer-breast Paternal Grandmother Relation Name Status Comments Father Maternal Grandmother Alive Maternal Uncle Mother Paternal Grandmother Social History Tobacco Use Types Packs/Day Years Used Date Smoking Tobacco: Never Smokeless Tobacco: Never Comments:Mom smokes outside Alcohol Use Standard Drinks/Week Comments Not Currently 0 (1 standard drink = 0.6 oz pur e alcohol) occasional Social Connections Answer Date Recorded Frequency of Communication with Friends and Fami ly Not on file 05/06/2022 Sex and Gender Information Value Date Recorded Sex Assigned at Not on file Gender Identity Not on file Sexual Orientation Not on file Obstetrics History Last Filed Vital Signs Vital Sign Reading Time Taken Comments Blood Pressure 115/77 05/30/2022 4:00 PM TIRE TRUCKER Pulse 94 05/30/2022 4:15 PM TIRE TRUCKER Temperature 36.5 ??C (97.7 ??F) 05/30/2022 4:00 PM CS T Respiratory Rate 16 05/30/2022 4:00 PM TIRE TRUCKER Oxygen Saturation 97% 05/30/2022 4:15 PM TIRE TRUCKER Inhaled Oxygen Concentration - - Weight 64.4 kg (142 lb) 05/30/2022 1:09 PM TIRE TRUCKER Height 154.9 cm (5' 1) 05/30/2022 1:09 PM TIRE TRUCKER Body Mass Index 26.83 05/30/2022 1:09 PM TIRE TRUCKER Plan of Treatment Health Maintenance Due Date Last Done Comments Depression screening for age 12+ 2009 HIV for age 15-65 2012 BMI (ht and wt on same day) for age 18+ 2015 Hepatitis C screening for ag e 18-79 2015 Tetanus booster 09/11/2019 09/10/2009 COVID-19 vaccine series ( season) 2023 10/02/2020, 09/11/2020 Influenza for age 9-49 02/25/2024 Pap test for age 21-65 02/04/2025 02/04/2022 Tdap Completed 09/10/2009 HPV series for age 9-26 Completed 09/20/19, 06/09/2011, 02/10/2010 Pneumococcal series for age 6-64 Aged Out No longer eligible b ased on patient's age to complete this topic Medical Devices Implanted Type Area Event Decorator Device Identifier Shelf Expiration Date Model / Serial / Lot Port 8fr Powerport Clearvue Slim Micro Intrdcr Silcn - [id number] Implanted:Qty: 1 on 05/30/2022 by Paco Paulino MD at [facility] Right: Chest [employer] 02/23/2023 [id number] / / [id number] Description:see implant shee t Procedures Procedure Name Priority Date/Time Associated Diagnosis Comments NURSING STAFF DEVELOPMENT COORDINATOR THIN PREP PAP SCREEN IMAGED Routine 02/04/2022 3:03 PM CDT from Last 3 Months or Most Recently Relevant to Health Maintenance Results * NURSING STAFF DEVELOPMENT COORDINATOR THIN PREP PAP SCREEN IMAGED (02/04/2022 3:03 PM CDT) Case Report Gynecologic Cytology Report ? Case: [id number] ? Authorizing Provider: ??Unknown, Doctor ?Collected: ? 02/04/2022 1503 ? Ordering Location: ? [facility] ?Received: ?02/07/2022 1750 ? First Screen: ?Lisell, Jassi ? Specimen: ?NURSING STAFF DEVELOPMENT COORDINATOR ThinPrep Vial Screening, Cervical/Vaginal ? 02/20/2022 3:20 PM CDT [facility] INTERPRETATION/ RESULT NEGATIVE FOR INTRAEPITHELIAL LESION OR MALIGNANCY (NIL) (none) 02/20/2022 3:20 PM CDT [facility] IMEN ADEQUACY Satisfactory for evaluation Endocervical component present 02/20/2022 3:20 PM CDT [facility] HPV REQUEST HPV not requested 2021 3:20 PM CDT [facility] Date of LMP 02/20/2022 3:20 PM CDT [facility] Comment:unknown, mirena IUD Last Pap Date 02/20/2022 3:20 PM CDT [facility] Comment:unknown Abnormal Pap or [place] Bx in last 5 years No 02/20/2022 3:20 PM CDT [facility] Menstrual Status Hormonally Suppressed 02/20/2022 3:20 PM CDT [facility] Additional Information 02/20/2022 3:20 PM CDT [facility] Comment: Interpreted at [facility] - [address], [place] [address] Automated Review Successful 02/20/2022 3:20 PM CDT [facility] Comment:Specimen processed s uccessfully by automated suede cleaner device, ThinPrep Imaging System, [employer] Note The pap test is a screening technique, not a diagnostic procedure. It is used primarily to screen for squamous cancers and precursor lesions. Published studies have shown that it is subject to both false negative and false positive results. The pap test should not be used as the sole means to diagnose or exclude pre-malignant and malignant lesions. 02/20/2022 3:20 PM CDT [facility] Other (Cervical/Vagina l) 02/04/2022 3:03 PM CDT 02/07/2022 5:50 PM CDT Doctor Unknown PATHOLOGY/CYTOLOGY [facility] [address] [place] [address], from Last 3 Months or Most Recently Relevant to Health Maintenance Advance Directives * Full Code (Latest Code Status on File) Date Activated Date Inactivated Comments 05/30/2022 12:58 PM 05/30/2022 7:49 PM Question Answer Comments Code Status Discussion: Unable to Assess Preferences, Provider to review later * Full Code Date Activated Date Inactivated Comments 05/09/2022 11:54 AM 05/10/2022 3:15 PM Question Answer Comments Code Status Discussion: Reviewed Preferences Care Teams Yard Specialist Relationship Specialty Start Date End Date Dee Spears DO [address] [place] [address] PCP - General Family Practice 05/05/22 Mamie Warren, SONNY [address] [place] [address] Registered Nurse 05/05/22
== END 2023-12-26 15:36 | disposition home or self-care (01) ==
LOC: NFLDREF 12-28 11:44
PROVIDERS: PCP Physician Assistant Medical; Referring Provider Physician Assistant Medical; Visit Provider Physician Assistant Medical
DX: R53.83 Other fatigue (principal); G47.419 Narcolepsy without cataplexy
CPT/HCPCS: 82306; 82607; 82728

== ENCOUNTER 2023-12-27 15:00 | Outpatient (RCR) | payer BC, SELFPAY ==
[2023-09-18 14:41] LABS: Basophils Absolute Auto 0.05 K/uL (0.00-0.30); Basophils Percent Auto 0.7 % (0.0-3.0); Eosinophils Absolute Auto 0.11 K/uL (0.00-0.50); Eosinophils Percent Auto 1.6 % (0.0-7.0); Hematocrit 40.8 % (33.0-51.0); Hemoglobin* 13.9 gm/dL (12.0-16.0); Immature Granulocytes Abs Auto 0.05 K/uL (0.00-0.30); Immature Granulocytes Pct Auto 0.7 %; Lymphocytes Percent Auto 17.6 % (20-44); Mean Corpuscular HGB Conc 34 gm/dL (32-36); Mean Corpuscular Hemoglobin 33 pg (26-34); Mean Corpuscular Volume 96 fL (80-100); Neutrophils Percent Auto 72.4 % (42.0-72.0); Platelet Count* 211 K/uL (140-440); RDW Coefficient of Variation % 11.9 % (11.5-15.5); Red Blood Count 4.25 m/uL (4.00-5.20); White Blood Count* 6.99 K/uL (4.50-11.00)
[2023-09-18 14:43] LABS: Slide Review Reflex No
[2023-09-18 14:58] LABS: Albumin* 4.7 g/dL (3.3-5.0); Chloride* 101 mmol/L (96-114); Potassium* 4.1 mmol/L (3.6-5.1); Sodium* 138 mmol/L (135-149)
[2023-09-18 15:00] LABS: Creatinine* 0.6 mg/dL (0.5-1.5); Estimated Glomerular Filt Rate 127 ml/min
[2023-09-18 15:01] LABS: Alanine Aminotransferase* 14 U/L (4-35); Alkaline Phosphatase* 81 U/L (40-150); Anion Gap 8 mEq/L (7-15); Aspartate Amino Transferase* 14 U/L (12-35); Bilirubin Total* 0.3 mg/dL (0.1-1.5); Blood Urea Nitrogen* 17 mg/dL (5-24); Carbon Dioxide* 29 mmol/L (20-32); Glucose* 87 mg/dL (60-115); Lactate Dehydrogenase* 177 U/L (120-246); Total Protein* 7.9 g/dL (6.0-8.3)
[2023-09-18 15:02] LABS: Calcium* 9.8 mg/dL (8.4-10.6)
[2023-09-18 15:36] LABS: Erythrocyte SedimentationRate* 16 mm/hr (2-20)
[2023-12-18 15:30] LABS: Chloride* 103 mmol/L (96-114)
[2023-12-18 15:31] LABS: Sodium* 139 mmol/L (135-149)
[2023-12-18 15:33] LABS: Anion Gap 9 mEq/L (7-15); Carbon Dioxide* 27 mmol/L (20-32); Creatinine* 0.7 mg/dL (0.5-1.5); Estimated Glomerular Filt Rate 122 ml/min
[2023-12-18 15:34] LABS: Blood Urea Nitrogen* 10 mg/dL (5-24); Calcium* 9.4 mg/dL (8.4-10.6); Glucose* 103 mg/dL (60-115)
[2023-12-18 16:03] LABS: Erythrocyte SedimentationRate* 13 mm/hr (2-20)
[2023-12-19 02:16] LABS: Basophils Absolute Auto 0.05 K/uL (0.00-0.30); Basophils Percent Auto 0.7 % (0.0-3.0); Eosinophils Absolute Auto 0.08 K/uL (0.00-0.50); Eosinophils Percent Auto 1.2 % (0.0-7.0); Hematocrit 40.8 % (33.0-51.0); Hemoglobin* 13.9 gm/dL (12.0-16.0); Immature Granulocytes Abs Auto 0.09 K/uL (0.00-0.30); Immature Granulocytes Pct Auto 1.3 %; Mean Corpuscular HGB Conc 34 gm/dL (32-36); Mean Corpuscular Hemoglobin 33 pg (26-34); Mean Corpuscular Volume 96 fL (80-100); Monocytes Percent Auto 4.9 % (0.0-11.0); Neutrophils Percent Auto 72.9 % (42.0-72.0); Platelet Count* 203 K/uL (140-440); RDW Coefficient of Variation % 11.8 % (11.5-15.5); Red Blood Count 4.26 m/uL (4.00-5.20); White Blood Count* 6.95 K/uL (4.50-11.00)
[2023-12-19 02:18] LABS: Slide Review Reflex No
== END 2024-03-16 23:59 | disposition home or self-care (01) ==
LOC: CCIC 15:00
PROVIDERS: Internal Medicine Hematology & Oncology; PCP Family Medicine; Referring Provider Family Medicine; Visit Provider Internal Medicine Hematology & Oncology
DX: C81.12 Nodular sclerosis Hodgkin lymphoma, intrathoracic lymph nodes (principal)
CPT/HCPCS: 36415; 80048; 80053; 83615; 84443; 85025; 85651; 99213; 99214; G0463

== ENCOUNTER 2024-03-18 07:34 | Outpatient (CLI) | payer BC, SELFPAY ==
--- OUTSIDE RECORDS SUMMARY | 2024-03-18 07:37 | XMS_ITS ---
Author Organization [facility] Address [address] [place] [address] Care Team Providers Care Communications Associate Name Role Phone Unavailable Unavailable Unavailable Surgery Details Not on file Complications Check Surgery Details section. Procedure Estimated Blood Loss Check Surgery Details section. Procedure Findings Check Surgery Details section. Procedure Specimens Taken Check Surgery Details section.
--- OUTSIDE RECORDS SUMMARY | 2024-03-18 07:37 | XMS_ITS | Referral Summary ---
Author Organization [facility] Address [address] [place] [address] Care Team Providers Care Professor/Nurse Anesthetist Name Role Phone Unavailable Primary Care Provider Unavailabl e Source Comments Patient records contain information from all sites at [facility]. For routine questions regarding patient records, call [phone] during business hours, M-F 8:00 AM - 5:00 PM Central Time. Record requests for emergency care only can be directed to [phone] at any time.[facility] Allergies No known active allergies Medications Medication [...] of Treatment Not on file [address] [facility] [place] [address]
--- OUTSIDE RECORDS SUMMARY | 2024-03-18 07:37 | XMS_ITS | Clinical Summary ---
Author Organization [facility] Address [place], [place] [address] Care Team Providers Care Concrete Batching Plant Operator Name Role Phone ToryDee DO Primary Care Provide r Mamie Warren RN Unavailable [phone] Allergies No known active allergies Medications Medication Sig Dispensed Refills Start Date End Date Status escitalopram oxalate (LEXAPRO) 20 mg tablet Take 20 mg by mouth once daily. 02/26/2021 Active Active Problems Problem Noted Date Diagnosed Date Mediastinal mass 05/09/2022 Overview (05/09/2022): S/p right VATS, mediastinal mass biopsy performed [...] Comments Blood Pressure 115/77 05/30/2022 4:00 PM WINDOW SHADE CUTTER AND MOUNTER Pulse 94 05/30/2022 4:15 PM WINDOW SHADE CUTTER AND MOUNTER Temperature 36.5 ??C (97.7 ??F) 05/30/2022 4:00 PM CS T Respiratory Rate 16 05/30/2022 4:00 PM WINDOW SHADE CUTTER AND MOUNTER Oxygen Saturation 97% 05/30/2022 4:15 PM WINDOW SHADE CUTTER AND MOUNTER Inhaled Oxygen Concentration - - Weight 64.4 kg (142 lb) 05/30/2022 1:09 PM WINDOW SHADE CUTTER AND MOUNTER Height 154.9 cm (5' 1) 05/30/2022 1:09 PM WINDOW SHADE CUTTER AND MOUNTER Body Mass Index 26.83 05/30/2022 1:09 PM WINDOW SHADE CUTTER AND MOUNTER Plan of Treatment Health Maintenance Due Date Last Done Comments Depression screening for age 12+ 2009 HIV for age 15-65 2012 BMI (ht and wt on same day) for age 18+ 2015 Hepatitis C screening for ag e 18-79 2015 Tetanus booster 09/11/2019 09/10/2009 COVID-19 vaccine series ( season) 2024 10/02/2020, 09/11/2020 Influenza for age 9-49 02/25/2024 Pap test for age 21-65 02/04/2025 02/04/2022 Tdap Completed 09/10/2009 HPV series for age 9-26 Completed 09/20/19 12, 06/09/2011, 02/10/2010 Pneumococcal series for age 6-64 Aged Out No longer eligible b ased on patient's age to complete this topic Medical Devices Implanted Type Area Frog Catcher Device Identifier Shelf Expiration Date Model / Serial / Lot Port 8fr Powerport Clearvue Slim Micro Intrdcr Silcn - [id number] Implanted:Qty: 1 on 05/30/2022 by Paco Paulino MD at [facility] Right: Chest [employer] 02/23/2023 [id number] / / [id number] Description:see implant shee t Procedures Procedure Name Priority Date/Time Associated Diagnosis Comments CASEWORK MANAGER THIN PREP PAP SCREEN IMAGED Routine 02/04/2022 3:03 PM CDT from Last 3 Months or Most Recently Relevant to Health Maintenance Results * CASEWORK MANAGER THIN PREP PAP SCREEN IMAGED (02/04/2022 3:03 PM CDT) Case Report Gynecologic Cytology Report ? Case: [id number] ? Authorizing Provider: ??Unknown, Doctor ?Collected: ? 02/04/2022 1503 ? Ordering Location: ? [facility] ?Received: ?02/07/2022 1750 ? First Screen: ?Lisell, Jassi ? Specimen: ?CASEWORK MANAGER ThinPrep Vial Screening, Cervical/Vaginal ? 02/20/2022 3:20 PM CDT [facility] INTERPRETATION/ RESULT NEGATIVE FOR INTRAEPITHELIAL LESION OR MALIGNANCY (NIL) (none) 02/20/2022 3:20 PM CDT [facility] IMEN ADEQUACY Satisfactory for evaluation Endocervical component present 02/20/2022 3:20 PM CDT [facility] HPV REQUEST HPV not requested 2021 3:20 PM CDT [facility] Date of LMP 02/20/2022 3:20 PM CDT [facility] Comment:unknown, mirena IUD Last Pap Date 02/20/2022 3:20 PM CDT [facility] Comment:unknown Abnormal Pap or [place] Bx in last 5 years No 02/20/2022 3:20 PM CDT [facility] Menstrual Status Hormonally Suppressed 02/20/2022 3:20 PM CDT [facility] Additional Information 02/20/2022 3:20 PM CDT [facility] Comment: Interpreted at [facility] Central Laboratory - [address], [place] [address] Automated Review Successful 02/20/2022 3:20 PM CDT [facility] Comment:Specimen processed s uccessfully by automated dispatcher radioactive waste disposal device, ThinPrep Imaging System, [employer] Note The pap test is a [...] and malignant lesions. 02/20/2022 3:20 PM CDT [facility] Other (Cervical/Vagina l) 02/04/2022 3:03 PM CDT 02/07/2022 5:50 PM CDT Doctor Unknown PATHOLOGY/CYTOLOGY [facility] [address] [place] [address], [place] from Last 3 Months or Most Recently [...] Code Status Discussion: Reviewed Preferences Care Teams Concrete Batching Plant Operator Relationship Specialty Start Date End Date Dee Spears DO [address] [place] [address] PCP - General Family Practice 05/05/22 Mamie Warren, RN [address] [place] [address] Registered Nurse 05/05/22
--- OUTSIDE RECORDS SUMMARY | 2024-03-18 07:37 | XMS_ITS | Clinical Summary ---
Author Organization [facility] Address [address] [place] [address] Care Team Providers Care Medical Numerical Control Operator Name Role Phone Unavailable Primary Care Provider Unavailabl e Source Comments Patient records contain information from all sites at [facility]. For routine questions regarding patient records, call [phone] during business hours, M-F 8:00 AM - 5:00 PM Central Time. Record requests for emergency care only can be directed to [phone] at any time.[facility] Allergies No known active allergies Medications Medication [...] 08/25, 06/09/2011, Additional history exists [address] [facility] [place] [address]
--- OUTSIDE RECORDS SUMMARY | 2024-03-18 07:38 | XMS_ITS ---
Author Organization [facility] Address [address] [place] [address] Care Team Providers Care Computer Peripheral Equipment Operator Name Role Phone Unavailable Primary Care [...] Treated Prescribed Fraction Dose Prescribed Total Dose [id number] 12/05/2022 13 10 of 10 200 cGy 2,000 cGy Reference Point Last Treated On Elapsed Days Session Dose Total Dose [id number] 12/05/2022 13 200 cGy 2,000 cGy
--- OUTSIDE RECORDS SUMMARY | 2024-03-18 07:38 | XMS_ITS | Clinical Summary ---
Author Organization [facility] Address [address] [place] [address] Care Team Providers Care Assistant Chief Engineer Name Role Phone No Ref-Primary, Physician [...] of Treatment Not on file Care Teams Assistant Chief Engineer Relationship Specialty Start Date End Date No Ref-Primary, Physician PCP - General 09/12/20
--- OUTSIDE RECORDS SUMMARY | 2024-03-18 07:38 | XMS_ITS | Referral Summary ---
Author Organization [facility] Address [address] [place] [address] Care Team Providers Care Animal Hospital Office Supervisor Name Role Phone No Ref-Primary, Physician Primary [...] of Treatment Not on file Care Teams Animal Hospital Office Supervisor Relationship Specialty Start Date End Date No Ref-Primary, Physician PCP - General 09/12/20
--- NOTE | 2024-03-18 08:00 | CRLHL7_ITS ---
For Patients: As a result of the 21st Century Cures Act, medical imaging exams and procedure reports are released immediately into your electronic medical record. You may view this report before your referring provider. If you have questions, please contact your health care provider. INDICATIONS: Follow-up sclerosis classic Hodgkin`s lymphoma. Six months post chemoradiation. TECHNIQUE: CT chest, abdomen and pelvis acquired with 83 cc of Isovue 370 IV contrast. COMPARISON: CT chest, abdomen and pelvis 09/18/2023. PET-CT 02/23/2023. FINDINGS: Chest: No pleural or pericardial effusions. Anterior mediastinal lymphadenopathy persists but now contains small areas of calcification. For example, a node on image 48 of series 2 is 3 x 1.6 cm and was 3.1 x 1.9 cm. No new or progressive lymphadenopathy. Thoracic aorta and main pulmonary arteries are normal in caliber. Heart size is within normal limits. Soft tissues of the thoracic wall are unremarkable. No pneumothorax. Central airways are patent. Lungs are clear. Abdomen: The liver, spleen, pancreas, adrenal glands and kidneys are within normal limits. No calcified gallstones or biliary ductal dilatation. No bowel obstruction or focal inflammatory change of the GI tract. Normal appendix. New borderline and mildly enlarged mesenteric lymphadenopathy, for example on coronal image 141. No abdominal free fluid. Abdominal vasculature as imaged is unremarkable. Pelvis: Intrauterine device appears appropriately positioned. Small cyst or dominant follicle in the right ovary is similar in appearance. Trace pelvic free fluid is likely physiologic. Bladder as imaged is unremarkable. Pelvic portions of the GI tract are unremarkable. No pelvic lymphadenopathy. Bone windows: No acute or suspicious osseous abnormality. IMPRESSION: 1. Mediastinal lymphadenopathy has slightly improved. 2. New borderline and mildly enlarged mesenteric nodes may be infectious, inflammatory or neoplastic. Given the history of lymphoma, follow-up PET-CT may prove useful for further evaluation. 3. Additional unchanged findings. Dictated by Troy Patel MD @ 03/20/2024 9:00:23 AM Please note that all CT scans at this facility use dose modulation, iterative reconstruction, and/or weight-based dosing when appropriate to reduce radiation dose to as low as reasonably achievable. Dictated by: Troy Patel MD @ 03/20/2024 09:00:41 (Electronically Signed)
== END 2024-03-18 07:35 | disposition home or self-care (01) ==
LOC: CT 07:35
PROVIDERS: PCP Physician Assistant Medical; Visit Provider Internal Medicine Hematology & Oncology
DX: C81.12 Nodular sclerosis Hodgkin lymphoma, intrathoracic lymph nodes (principal); R59.0 Localized enlarged lymph nodes
CPT/HCPCS: 71260; 74177; Q9967

== ENCOUNTER 2024-04-04 13:39 | Outpatient (CLI) | payer BC, SELFPAY ==
--- OUTSIDE RECORDS SUMMARY | 2024-04-04 13:42 | XMS_ITS ---
Author Organization [facility] Address [address] [place] [address] Care Team Providers Care Title Vehicle Service Attendant Name Role Phone Unavailable Unavailable Unavailable Surgery Details Not on file Complications Check Surgery Details section. Procedure Estimated Blood Loss Check Surgery Details section. Procedure Findings Check Surgery Details section. Procedure Specimens Taken Check Surgery Details section.
--- OUTSIDE RECORDS SUMMARY | 2024-04-04 13:42 | XMS_ITS | Referral Summary ---
Author Organization [facility] Address [address] [place] [address] Care Team Providers Care Metal Cabinet Finisher Name Role Phone Unavailable Primary Care Provider Unavailabl e Source Comments Patient records contain information from all sites at [facility]. For routine questions regarding patient records, call [phone] during business hours, M-F 8:00 AM - 5:00 PM Central Time. Record requests for emergency care only can be directed to [phone] at any time.[facility] Allergies No known active allergies Medications [...] - Plan of Treatment Not on file Procedures Procedure Name Priority Date/Time Associated Diagnosis Comments OUTSIDE CT BODY Routine 03/18/2024 8:20 AM CDT from Last 3 Months Results * CT chest abdomen pelv w con-Outside CT Body (03/18/2024 8:20 AM CDT) Narrative [facility] - 04/03/2024 1:19 PM CDT This order has been created and auto-finalized to support the import of outside images. If available, original interpretation can be found on the Media Tab in Chart Review, in Document Viewer, as an image in QREADS or as an Addendum. If a re-interpretation or overread is required please follow defined workflow.?? Provider Not In System IMG CT PROCEDURES [facility] NA from Last [address] [facility] [address]
--- OUTSIDE RECORDS SUMMARY | 2024-04-04 13:42 | XMS_ITS | Clinical Summary ---
Author Organization [facility] Address [address] [place] [address] Care Team Providers Care Bell Neck Hammerer Name Role Phone Unavailable Primary Care Provider Unavailabl e Source Comments Patient records contain information from all sites at [facility]. For routine questions regarding patient records, call [phone] during business hours, M-F 8:00 AM - 5:00 PM Central Time. Record requests for emergency care only can be directed to [phone] at any time.[facility] Allergies No known active allergies Medications Medication [...] Additional history exists HPV Vaccines Completed 09/20/2011, 05/26, 02/10/2010 Procedures Procedure Name Priority Date/Time Associated Diagnosis [...] NA from Last 3 Months [address] [facility] [address]
--- OUTSIDE RECORDS SUMMARY | 2024-04-04 13:42 | XMS_ITS | Clinical Summary ---
Author Organization [facility] Address [address] [place] [address] Care Team Providers Care Donor Processor Name Role Phone No Ref-Primary, Physician Primary [...] of Treatment Not on file Care Teams Donor Processor Relationship Specialty Start Date End Date No Ref-Primary, Physician PCP - General 09/12/20
--- OUTSIDE RECORDS SUMMARY | 2024-04-04 13:42 | XMS_ITS ---
Author Organization [facility] Address [address] [place] [address] Care Team Providers Care Field Artillery Officer Name Role Phone Unavailable Primary Care Provider [...] Treated Prescribed Fraction Dose Prescribed Total Dose [id number] 12/05/2022 13 10 of 10 200 cGy 2,000 cGy Reference Point Last Treated On Elapsed Days Session Dose Total Dose [id number] 12/05/2022 13 200 cGy 2,000 cGy
--- OUTSIDE RECORDS SUMMARY | 2024-04-04 13:42 | XMS_ITS | Clinical Summary ---
Author Organization [facility] [place], [place] [address] Care Team Providers Care Electrical Drafter Name Role Phone [place] at[place] DO Primary Care Provide r Mamie Warren RN Unavailable [phone] Allergies No known active allergies Medications Medication [...] Comments Blood Pressure 115/77 05/30/2022 4:00 PM QUARTER SECTION IRONER Pulse 94 05/30/2022 4:15 PM QUARTER SECTION IRONER Temperature 36.5 ??C (97.7 ??F) 05/30/2022 4:00 PM CS T Respiratory Rate 16 05/30/2022 4:00 PM QUARTER SECTION IRONER Oxygen Saturation 97% 05/30/2022 4:15 PM QUARTER SECTION IRONER Inhaled Oxygen Concentration - - Weight 64.4 kg (142 lb) 05/30/2022 1:09 PM QUARTER SECTION IRONER Height 154.9 cm (5' 1) 05/30/2022 1:09 PM QUARTER SECTION IRONER Body Mass Index 26.83 05/30/2022 1:09 PM QUARTER SECTION IRONER Plan of Treatment Health Maintenance Due Date [...] this topic Medical Devices Implanted Type Area Teacher Music Device Identifier Shelf Expiration Date Model / Serial / Lot Port 8fr Powerport Clearvue Slim Micro Intrdcr Silcn - [id number] Implanted:Qty: 1 on 05/30/2022 by Paco Paulino MD at [facility] Right: Chest [employer] 02/23/2023 [id number] / / [id number] Description:see implant shee t Procedures Procedure Name Priority Date/Time Associated Diagnosis Comments MOLD BREAKER THIN PREP PAP SCREEN IMAGED Routine 02/04/2022 3:03 PM CDT from Last 3 Months or Most Recently Relevant to Health Maintenance Results * MOLD BREAKER THIN PREP PAP SCREEN IMAGED (02/04/2022 3:03 PM CDT) Case Report Gynecologic Cytology Report ? Case: [id number] ? Authorizing Provider: ??Unknown, Doctor ?Collected: ? 02/04/2022 1503 ? Ordering Location: ? [facility] ?Received: ?02/07/2022 1750 ? First Screen: ?Lisell, Jassi ? Specimen: ?MOLD BREAKER ThinPrep Vial Screening, Cervical/Vaginal ? 02/20/2022 3:20 PM CDT [facility] INTERPRETATION/ RESULT NEGATIVE FOR INTRAEPITHELIAL LESION OR MALIGNANCY (NIL) (none) 02/20/2022 3:20 PM CDT [facility] IMEN ADEQUACY Satisfactory for evaluation Endocervical component present 02/20/2022 3:20 PM CDT [facility] HPV REQUEST HPV not requested 2021 3:20 PM CDT [facility] Date of LMP 02/20/2022 3:20 PM CDT [facility] Comment:unknown, mirena IUD Last Pap Date 02/20/2022 3:20 PM CDT [facility] Comment:unknown Abnormal Pap or [place] Bx in last 5 years No 02/20/2022 3:20 PM CDT [facility] Menstrual Status Hormonally Suppressed 02/20/2022 3:20 PM CDT [facility] Additional Information 02/20/2022 3:20 PM CDT [facility] Comment: Interpreted at [facility] Laboratory - [address], [place] [address] Automated Review Successful 02/20/2022 3:20 PM CDT [facility] Comment:Specimen processed s uccessfully by automated caponizer device, ThinPrep Imaging System, [employer] Note The pap test is a [...] and malignant lesions. 02/20/2022 3:20 PM CDT [facility] Other (Cervical/Vagina l) 02/04/2022 3:03 PM CDT 02/07/2022 5:50 PM CDT Doctor Unknown PATHOLOGY/CYTOLOGY [facility] [address] [place] [address], [place] from Last 3 Months or Most [...] Code Status Discussion: Reviewed Preferences Care Teams Electrical Drafter Relationship Specialty Start Date End Date Dee Spears DO [address] [place] [address] PCP - General Family Practice 05/05/22 Mamie Warren, RN [address] [place] [address] Registered Nurse 05/05/22
--- OUTSIDE RECORDS SUMMARY | 2024-04-04 13:43 | XMS_ITS | Referral Summary ---
Author Organization [facility] Address [address] [place] [address] Care Team Providers Care Customer Service Cashier Name Role Phone No Ref-Primary, Physician Primary [...] of Treatment Not on file Care Teams Customer Service Cashier Relationship Specialty Start Date End Date No Ref-Primary, Physician PCP - General 09/12/20
--- NOTE | 2024-04-04 14:00 | PE_ITS ---
[facility] [address] [facility] [address] Phone:?[phone] Fax:?[phone] Referring Physician Information: Aicha Lobo M.D. [address] [facility] [address] Phone:?[phone] Fax:?[phone] Patient:Rosario Sin D.O.B:?1995 Sex:?Female Phone:?[phone] [facility] MRN:?[id number] Exam Date:?04/04/2024 EXAM: PET/CT EYES TO THIGHS, CANCER RESTAGING CLINICAL INFORMATION: Lymphoma, restaging. TECHNICAL INFORMATION: Helical acquisition of data was obtained from the orbits to the upper thighs with reconstruction of 3.75 mm thick images at 3.[address] data was used for attenuation correction. PET scanning was performed through the same anatomic range 54 minutes following administration of 12.59 mCi of 18-FDG delivered intravenously. The patient's glucose at the time of the injection was 83 mg/dL. PET, CT and PET/CT fusion images are interpreted using a computer viewing workstation. PET, CT and PET/CT fusion images were archived and saved in the patient's permanent medical record. COMPARISON: CT from 03/18/2024, PET-CT from 02/23/2023. INTERPRETATION: Head and Neck: There are no abnormal hypermetabolic foci within the head or neck. There is physiologic uptake in the intracranial soft tissues. Chest: There are no abnormal hypermetabolic foci within the chest. There is stable, partially calcified lymphadenopathy in the anterior mediastinum with no associated hypermetabolism (SUVmax = 1.29), consistent with treated/quiescent disease. Background mediastinal blood pool uptake has a maximum SUV of 2.73. No lung nodules or masses detected on this free-breathing exam. Abdomen and Pelvis: There is a cluster of mildly enlarged (8-9 mm short axis) mesenteric lymph nodes in the right lower quadrant (Se 2 Im 176), with a maximum SUV of 12.4. These are similar in size to the CT from February 2024 and new when compared to the PET- CT from January 2023. The spleen measures 13.3 cm in long axis, stable dating back to January 2023, with maximum parenchymal SUV of 2.53. There are no other abnormal hypermetabolic foci within the abdomen or pelvis. Background hepatic parenchymal uptake has a maximum SUV of 2.93. There is physiologic excretion of radiotracer in the urine and bowel. Skeleton, Musculature, and Integument: No abnormal hypermetabolic foci within the skeleton. No missy osteoblastic or osteolytic disease. CONCLUSION: 1. New, borderline enlarged but not hypermetabolic mesenteric lymph node are suspicious for viable lymphoma, [place] 5. If warranted, percutaneous biopsy would be technically challenging but likely feasible. 2. No viable supradiaphragmatic, extranodal, splenic, or skeletal lymphoma identified. Electronically signed on 04/05/2024 3:10:00 PM by Michele Ochoa M.D.
== END 2024-04-04 13:40 | disposition home or self-care (01) ==
PROVIDERS: PCP Physician Assistant Medical; Visit Provider Internal Medicine Hematology & Oncology
DX: C81.92 Hodgkin lymphoma, unspecified, intrathoracic lymph nodes (principal)
CPT/HCPCS: 78815; A9552

== ENCOUNTER 2024-04-09 07:00 | Outpatient (CLI) | payer BC, SELFPAY ==
--- OUTSIDE RECORDS SUMMARY | 2024-04-09 07:02 | XMS_ITS | Referral Summary ---
Author Organization [facility] Address [address] [place] [address] Care Team Providers Care Lumber Loader Name Role Phone Unavailable Primary Care Provider Unavailabl e Source Comments Patient records contain information from all sites at [facility]. For routine questions regarding patient records, call [phone] during business hours, M-F 8:00 AM - 5:00 PM Central Time. Record requests for emergency care only can be directed to [phone] at any time.[facility] Allergies No known active allergies Medications escitalopram (LEXAPRO) 20 mg tablet Take 20 mg by mouth. 1 Active levothyroxine (Synthroid) 50 mcg tabletIndications :Nodular Sclerosis Classical Hodgkin Lymphoma Intrathoracic Lymph Nodes (HCC) Take 1 tablet (50 mcg total) by mouth daily. 25 tablet 3 Active Additional Information Patient not taking.Reported on [...] Date Recorded Dental: Regular Dentist Unknown 08/29/19 Comments Unknown Sex and Gender Information Value Date Recorded Sex Assigned at Female 09/13/2022 1:51 PM CDT Legal Sex Female 4:53 PM EARLY CHILDHOOD AIDE CLASSROOM Gender Identity Female 09/13/2022 1:51 PM CDT [...] Name Priority Date/Time Associated Diagnosis Comments OUTSIDE NM PET Routine 04/04/2024 2:[address] BODY Routine 03/18/2024 8:20 AM CDT from Last 3 Months Results * PET skull to mid thigh-Outside NM Pet (04/04/2024 2:45 PM CDT) Narrative [facility] - 04/05/2024 3:47 PM CDT This order has been created and auto-finalized to support the import of outside images. If available, original interpretation can be found on the Media Tab in Chart Review, in Document Viewer, as an image in QREADS or as an Addendum. If a re-interpretation or overread is required please follow defined workflow.?? us Provider Not In System [facility] [place] PROCEDURES Final R esult [facility] NA * CT chest abdomen pelv w con-Outside CT Body (03/18/2024 8:20 AM CDT) Narrative [facility] - 04/03/2024 1:19 PM CDT This order has been created and auto-finalized to support the import of outside images. If available, original interpretation can be found on the Media Tab in Chart Review, in Document Viewer, as an image in QREADS or as an Addendum. If a re-interpretation or overread is required please follow defined workflow.?? us Provider Not In System IMG CT PROCEDURES Final R esult [facility] NA from Last 3 Months Insurance [facility]
--- OUTSIDE RECORDS SUMMARY | 2024-04-09 07:02 | XMS_ITS ---
Author Organization [facility] Address [address] [place] [address] Care Team Providers Care Semiconductor Wafers Marker Name Role Phone Unavailable Unavailable Unavailable Surgery Details Not on file Complications Check Surgery Details section. Procedure Estimated Blood Loss Check Surgery Details section. Procedure Findings Check Surgery Details section. Procedure Specimens Taken Check Surgery Details section.
--- OUTSIDE RECORDS SUMMARY | 2024-04-09 07:02 | XMS_ITS | Referral Summary ---
Author Organization [facility] Address [address] [place] [address] Care Team Providers Care Flight Communications Operator Name Role Phone No Ref-Primary, Physician Primary [...] of Treatment Not on file Care Teams Flight Communications Operator Relationship Specialty Start Date End Date No Ref-Primary, Physician PCP - General 09/12/20
--- OUTSIDE RECORDS SUMMARY | 2024-04-09 07:02 | XMS_ITS | Clinical Summary ---
Author Organization [facility] Address [place], [place] [address] Care Team Providers Care Meat Supervisor Name Role Phone OaklandDee atkins DO Primary Care Provide r Mamie Warren RN Unavailable [phone] Allergies No known active allergies Medications Medication [...] Comments Blood Pressure 115/77 05/30/2022 4:00 PM SUIT MAKER Pulse 94 05/30/2022 4:15 PM SUIT MAKER Temperature 36.5 ??C (97.7 ??F) 05/30/2022 4:00 PM CS T Respiratory Rate 16 05/30/2022 4:00 PM SUIT MAKER Oxygen Saturation 97% 05/30/2022 4:15 PM SUIT MAKER Inhaled Oxygen Concentration - - Weight 64.4 kg (142 lb) 05/30/2022 1:09 PM SUIT MAKER Height 154.9 cm (5' 1) 05/30/2022 1:09 PM SUIT MAKER Body Mass Index 26.83 05/30/2022 1:09 PM SUIT MAKER Plan of Treatment Health Maintenance Due Date [...] this topic Medical Devices Implanted Type Area Senior Web Designer Device Identifier Shelf Expiration Date Model / Serial / Lot Port 8fr Powerport Clearvue Slim Micro Intrdcr Silcn - [id number] Implanted:Qty: 1 on 05/30/2022 by Paco Paulino MD at [facility] Right: Chest [employer] 02/23/2023 [id number] / / [id number] Description:see implant shee t Procedures Procedure Name Priority Date/Time Associated Diagnosis Comments SWATCH CHECKER THIN PREP PAP SCREEN IMAGED Routine 02/04/2022 3:03 PM CDT from Last 3 Months or Most Recently Relevant to Health Maintenance Results * SWATCH CHECKER THIN PREP PAP SCREEN IMAGED (02/04/2022 3:03 PM CDT) Case Report Gynecologic Cytology Report ? Case: [id number] ? Authorizing Provider: ??Unknown, Doctor ?Collected: ? 02/04/2022 1503 ? Ordering Location: ? [facility] ?Received: ?02/07/2022 1750 ? First Screen: ?Lisell, Jassi ? Specimen: ?SWATCH CHECKER ThinPrep Vial Screening, Cervical/Vaginal ? 02/20/2022 3:20 PM CDT [facility] INTERPRETATION/ RESULT NEGATIVE FOR INTRAEPITHELIAL LESION OR MALIGNANCY (NIL) (none) 02/20/2022 3:20 PM CDT [facility] IMEN ADEQUACY Satisfactory for evaluation Endocervical component present 02/20/2022 3:20 PM CDT [facility] HPV REQUEST HPV not requested 2021 3:20 PM CDT [facility] Date of LMP 02/20/2022 3:20 PM CDT [facility] Comment:unknown, mirena IUD Last Pap Date 02/20/2022 3:20 PM CDT [facility] Comment:unknown Abnormal Pap or [place] Bx in last 5 years No 02/20/2022 3:20 PM CDT [facility] Menstrual Status Hormonally Suppressed 02/20/2022 3:20 PM CDT [facility] Additional Information 02/20/2022 3:20 PM CDT [facility] Comment: Interpreted at [facility] - [address], [place] [address] Automated Review Successful 02/20/2022 3:20 PM CDT [facility] Comment:Specimen processed s uccessfully by automated long winder tender device, ThinPrep Imaging System, [employer] Note The pap test is a [...] and malignant lesions. 02/20/2022 3:20 PM CDT [facility] Other (Cervical/Vagina l) 02/04/2022 3:03 PM CDT 02/07/2022 5:50 PM CDT Doctor Unknown PATHOLOGY/CYTOLOGY [facility] [address] [place] [address], [place] from Last 3 Months or Most [...] Code Status Discussion: Reviewed Preferences Care Teams Meat Supervisor Relationship Specialty Start Date End Date Dee Spears DO [address] [place] [address] PCP - General Family Practice 05/05/22 Mamie Warren, RN [address] [place] [address] Registered Nurse 05/05/22
--- OUTSIDE RECORDS SUMMARY | 2024-04-09 07:02 | XMS_ITS ---
Author Organization [facility] Address [address] [place] [address] Care Team Providers Care Coal Miner Name Role Phone Unavailable Primary Care Provider [...] Treated Prescribed Fraction Dose Prescribed Total Dose [id number] 12/05/2022 13 10 of 10 200 cGy 2,000 cGy Reference Point Last Treated On Elapsed Days Session Dose Total Dose [id number] 12/05/2022 13 200 cGy 2,000 cGy
--- OUTSIDE RECORDS SUMMARY | 2024-04-09 07:02 | XMS_ITS | Clinical Summary ---
Author Organization [facility] Address [address] [place] [address] Care Team Providers Care Soda Tester Name Role Phone Unavailable Primary Care Provider Unavailabl e Source Comments Patient records contain information from all sites at [facility]. For routine questions regarding patient records, call [phone] during business hours, M-F 8:00 AM - 5:00 PM Central Time. Record requests for emergency care only can be directed to [phone] at any time.[facility] Allergies No known active allergies Medications escitalopram [...] Date Recorded Dental: Regular Dentist Unknown 08/29/19 21 Comments Unknown Sex and Gender Information Value Date Recorded Sex Assigned at Female 09/13/2022 1:51 PM CDT Legal Sex Female 4:53 PM INTERNET E[employer] SPECIALIST Gender Identity Female 09/13/2022 1:51 PM CDT [...] NM Pet (04/04/2024 2:45 PM CDT) Narrative IIIA - 04/05/2024 3:47 PM CDT This order has been created and auto-finalized to support the import of outside images. If available, original interpretation can be found on the Media Tab in Chart Review, in Document Viewer, as an image in QREADS or as an Addendum. If a re-interpretation or overread is required please follow defined workflow.?? us Provider Not In System IMG NM PROCEDURES Final R esult Performing Organization Address [facility] de Phone Number [facility] NA * CT chest abdomen pelv w con-Outside CT Body (03/18/2024 8:20 AM CDT) Narrative [facility] - 04/03/2024 1:19 PM CDT This order has been created and auto-finalized to support the import of outside images. If available, original interpretation can be found on the Media Tab in Chart Review, in Document Viewer, as an image in QREADS or as an Addendum. If a re-interpretation or overread is required please follow defined workflow.?? us Provider Not In System IM CT PROCEDURES Final R esult Performing Organization Address [facility] Phone Number [facility] NA from Last 3 Months Insurance [facility]
--- OUTSIDE RECORDS SUMMARY | 2024-04-09 07:02 | XMS_ITS | Clinical Summary ---
Author Organization [facility] Address [address] [place] [address] Care Team Providers Care Information Specialist Name Role Phone No Ref-Primary, Physician Primary [...] of Treatment Not on file Care Teams Information Specialist Relationship Specialty Start Date End Date No Ref-Primary, Physician PCP - General 09/12/20
--- NOTE | 2024-04-09 07:15 | CRLHL7_ITS ---
For Patients: As a result of the Century Cures Act, medical imaging exams and procedure reports are released immediately into your electronic medical record. You may view this report before your referring provider. If you have questions, please contact your health care provider. BILATERAL BREAST MRI WITHOUT AND WITH GADOLINIUM, 04/09/2024 CLINICAL HISTORY: Screening in high risk due to history of chest radiation. INDICATION FOR BREAST MRI: Screening breast MRI in this high-risk woman. COMPARISON STUDIES: 02/21/2023. CONTRAST: 20 cc Dotarem. TECHNIQUE: The patient was positioned prone using a breast coil. Multiple imaging sequences were obtained using 1-1.5 mm thick slices with no gap. The image sequences include T2-weighted STIR in the axial plane, T1-weighted nonfat-saturated gradient echo in the axial plane, pre- and post-contrast T1-weighted FLASH 3D with fat suppression in the axial plane, and T1-weighted FLASH high-resolution 3D with fat suppression in the sagittal plane. Image post-processing was performed on a [employer] workstation. Complex 3D rendering including maximum intensity projections (MIPS) and volumetric renderings were obtained to optimize visualization of the extent of pathology and relationship to the nipple, skin, and chest wall. This aids in determining feasibility of breast conservation surgery. Subtraction, multiplanar reconstruction, mean curve determination, and angiogenesis mapping were also performed. The study was technically adequate. FINDINGS: Amount of Fibroglandular Tissue: Scattered fibroglandular tissue. Breast Background Enhancement: Marked. RIGHT and LEFT Breast: There is no suspicious enhancement in either breast. Lymph Nodes: There is no abnormal morphology axillary lymph nodes. Other Findings: None. IMPRESSIONS AND RECOMMENDATIONS: There is no suspicious enhancement in either breast. There is no abnormal morphology axillary lymph nodes. Recommend continuing with yearly screening MRIs. BI-RADS: BI-RADS Category 2: Benign Edita Bajwa M.D. Diagnostic/Breast Radiologist [email or web address] Transcribed: 1:46 pm DW/Dictated by: Edita Bajwa MD @ 04/10/2024 12:58:00 PM (Electronically Signed)
== END 2024-04-09 07:01 | disposition home or self-care (01) ==
LOC: MRI 07:00
PROVIDERS: PCP Physician Assistant Medical; Visit Provider Internal Medicine Hematology & Oncology
DX: Z12.39 Encounter for other screening for malignant neoplasm of breast (principal); C81.12 Nodular sclerosis Hodgkin lymphoma, intrathoracic lymph nodes
CPT/HCPCS: 77049; A9575

== ENCOUNTER 2024-07-17 07:42 | Outpatient (CLI) | payer BC, SELFPAY ==
--- NOTE | 2024-07-17 08:00 | CRLHL7_ITS ---
For Patients: As a result of the Century Cures Act, medical imaging exams and procedure reports are released immediately into your electronic medical record. You may view this report before your referring provider. If you have questions, please contact your health care provider. INDICATION: Lymphoma TECHNIQUE: CT chest, abdomen and pelvis acquired with 80 mL Isovue 370 IV contrast. COMPARISON: 03/18/2024, 09/18/2023 chest abdomen pelvis CTs FINDINGS: CHEST: Cardiovascular structures: Heart size is normal. Thoracic aorta and main pulmonary artery are normal in caliber. Mediastinum and norberto: Partially calcified anterior mediastinal lymph nodes consistent with treated lymphoma. Index node unchanged in size at 3.1 x 1.8 cm. Lungs and pleura: Lungs and pleural spaces are clear. No suspicious nodules, infiltrates, or effusions. Chest wall and axilla: No mass or adenopathy. Bones: No suspicious bone lesions. Unremarkable for age. ABDOMEN AND PELVIS: Liver: Unremarkable. Gallbladder and bile ducts: Unremarkable. Pancreas: Unremarkable. Spleen: 13.7 cm, stable. Adrenal glands: Unremarkable. Kidneys: Unremarkable. GI tract: Unremarkable. Vascular structures: Unremarkable. Lymph nodes: Resection of several mesenteric lymph nodes since prior study. Low-density remaining node measuring 12 x 8 mm the right abdomen on image 174 series 2 Miscellaneous: No free air. Pelvic Organs: IUD in the uterus. Right ovarian corpus luteum and small amount of adjacent free fluid. These changes are physiologic. Bones: No suspicious bone lesions. Unremarkable for age. IMPRESSION: 1. Interval resection of several mesenteric lymph nodes. Residual low-density lymph node measuring 12 x 8 mm. Recommend attention on follow-up exams. 2. Stable calcified anterior mediastinal nodes consistent with treated lymphoma. Please note that all CT scans at this facility use dose modulation, iterative reconstruction, and/or weight-based dosing when appropriate to reduce radiation dose to as low as reasonably achievable. Dictated by Pranav Hardin MD @ 07/17/2024 9:40:53 AM (Electronically Signed)
--- NOTE | 2024-07-17 08:30 | CRLHL7_ITS ---
For Patients: As a result of the Century Cures Act, medical imaging exams and procedure reports are released immediately into your electronic medical record. You may view this report before your referring provider. If you have questions, please contact your health care provider. INDICATION: Lymphoma staging. Nodular sclerosing Hodgkin`s lymphoma. TECHNIQUE: CT of the neck with 80 ml Isovue 370 iodinated contrast agent. Coronal and sagittal reconstructions are included. COMPARISON: PET-CT 04/04/2024 FINDINGS: Partially visualized intrathoracic superior mediastinal partially calcified mass is better seen on accompanying CT chest. No lymphadenopathy. The oral cavity, nasopharyngeal, oropharyngeal and hypopharyngeal mucosal spaces are normal. No periapical dental disease. The supraglottic, glottic and infraglottic larynx are normal. The airway including the trachea is normal and is patent. The parotid glands, submandibular and sublingual glands are normal in appearance. The thyroid gland is normal in appearance. The vascular structures opacify normally with contrast material. No suspicious lytic or blastic osseous lesions. Visualized paranasal sinuses and mastoid air cells are clear. Visualized orbital and intracranial contents are normal. Supraclavicular regions and soft tissues of the imaged chest wall are normal. Visualized portions of the upper lungs are clear. IMPRESSION: 1. No suspicious enhancement or mass in the neck.Partially visualized intrathoracic superior mediastinal partially calcified mass is better seen on accompanying CT chest. 2. No evidence of acute inflammation. 3. No cervical lymphadenopathy. Please note that all CT scans at this facility use dose modulation, iterative reconstruction, and/or weight-based dosing when appropriate to reduce radiation dose to as low as reasonably achievable. Dictated by Tomas Casillas MD @ 07/17/2024 11:49:12 AM (Electronically Signed)
== END 2024-07-17 07:43 | disposition home or self-care (01) ==
LOC: CT 07:42
PROVIDERS: PCP Physician Assistant Medical; Visit Provider Internal Medicine Hematology & Oncology
DX: C81.12 Nodular sclerosis Hodgkin lymphoma, intrathoracic lymph nodes (principal)
CPT/HCPCS: 70491; 71260; 74177; Q9967

== ENCOUNTER 2024-07-24 13:30 | Outpatient (RCR) | payer BC, SELFPAY ==
[2024-03-18 07:55] LABS: Basophils Absolute Auto 0.03 K/uL (0.00-0.30); Basophils Percent Auto 0.6 % (0.0-3.0); Eosinophils Absolute Auto 0.07 K/uL (0.00-0.50); Eosinophils Percent Auto 1.4 % (0.0-7.0); Hematocrit 41.7 % (33.0-51.0); Immature Granulocytes Abs Auto 0.02 K/uL (0.00-0.30); Immature Granulocytes Pct Auto 0.4 %; Mean Corpuscular HGB Conc 34 gm/dL (32-36); Mean Corpuscular Hemoglobin 32 pg (26-34); Mean Corpuscular Volume 95 fL (80-100); Monocytes Percent Auto 9.2 % (0.0-11.0); Neutrophils Absolute Auto 3.43 K/uL (1.7-7.0); Neutrophils Percent Auto 70.4 % (42.0-72.0); Platelet Count* 173 K/uL (140-440); RDW Coefficient of Variation % 12.1 % (11.5-15.5); Red Blood Count 4.39 m/uL (4.00-5.20); White Blood Count* 4.88 K/uL (4.50-11.00)
[2024-03-18 07:56] LABS: Slide Review Reflex No
[2024-03-18 08:05] LABS: Albumin* 4.5 g/dL (3.3-5.0); Chloride* 106 mmol/L (96-114); Sodium* 138 mmol/L (135-149)
[2024-03-18 08:06] LABS: Potassium* 4.2 mmol/L (3.6-5.1)
[2024-03-18 08:08] LABS: Alkaline Phosphatase* 78 U/L (40-150); Anion Gap 7 mEq/L (7-15); Aspartate Amino Transferase* 13 U/L (12-35); Bilirubin Total* 0.4 mg/dL (0.1-1.5); Blood Urea Nitrogen* 10 mg/dL (5-24); Carbon Dioxide* 25 mmol/L (20-32); Creatinine* 0.6 mg/dL (0.5-1.5); Estimated Glomerular Filt Rate 127 ml/min; Glucose* 97 mg/dL (60-115); Lactate Dehydrogenase* 159 U/L (120-246); Total Protein* 7.3 g/dL (6.0-8.3)
[2024-03-18 08:09] LABS: Alanine Aminotransferase* 14 U/L (4-35); Calcium* 9.3 mg/dL (8.4-10.6)
[2024-03-18 09:30] LABS: Erythrocyte SedimentationRate* 16 mm/hr (2-20)
[2024-07-17 08:39] LABS: Basophils Absolute Auto 0.04 K/uL (0.00-0.30); Basophils Percent Auto 0.6 % (0.0-3.0); Eosinophils Absolute Auto 0.09 K/uL (0.00-0.50); Eosinophils Percent Auto 1.3 % (0.0-7.0); Hematocrit 39.9 % (33.0-51.0); Hemoglobin* 13.5 gm/dL (12.0-16.0); Immature Granulocytes Abs Auto 0.02 K/uL (0.00-0.30); Immature Granulocytes Pct Auto 0.3 %; Lymphocytes Percent Auto 13.8 % (20-44); Mean Corpuscular HGB Conc 34 gm/dL (32-36); Mean Corpuscular Hemoglobin 32 pg (26-34); Mean Corpuscular Volume 95 fL (80-100); Monocytes Percent Auto 6.1 % (0.0-11.0); Neutrophils Percent Auto 77.9 % (42.0-72.0); Platelet Count* 193 K/uL (140-440); RDW Coefficient of Variation % 12.3 % (11.5-15.5); Red Blood Count 4.21 m/uL (4.00-5.20); White Blood Count* 6.72 K/uL (4.50-11.00)
[2024-07-17 08:53] LABS: Slide Review Reflex No
[2024-07-17 09:10] LABS: Chloride* 102 mmol/L (96-114)
[2024-07-17 09:11] LABS: Albumin* 4.2 g/dL (3.3-5.0); Sodium* 134 mmol/L (135-149)
[2024-07-17 09:13] LABS: Bilirubin Total* 0.6 mg/dL (0.1-1.5); Creatinine* 0.6 mg/dL (0.5-1.5); Est. Creatinine Clearance* 106.28; Estimated Glomerular Filt Rate 126 ml/min
[2024-07-17 09:14] LABS: Alanine Aminotransferase* 12 U/L (4-35); Alkaline Phosphatase* 87 U/L (40-150); Anion Gap 8 mEq/L (7-15); Aspartate Amino Transferase* 10 U/L (12-35); Blood Urea Nitrogen* 10 mg/dL (5-24); Calcium* 8.8 mg/dL (8.4-10.6); Carbon Dioxide* 24 mmol/L (20-32); Glucose* 87 mg/dL (60-115); Lactate Dehydrogenase* 165 U/L (120-246); Total Protein* 6.9 g/dL (6.0-8.3)
[2024-07-17 10:25] LABS: Erythrocyte SedimentationRate* 14 mm/hr (2-20)
== END 2024-09-14 23:59 | disposition home or self-care (01) ==
LOC: CCIC 13:30
PROVIDERS: PCP Physician Assistant Medical; Visit Provider Internal Medicine Hematology & Oncology
DX: C81.12 Nodular sclerosis Hodgkin lymphoma, intrathoracic lymph nodes (principal)
CPT/HCPCS: 36415; 80053; 83615; 85025; 85651; 99214; G0463

== ENCOUNTER 2024-10-22 10:41 | Outpatient (CLI) | payer BC, SELFPAY ==
--- NOTE | 2024-10-22 11:00 | CRLHL7_ITS ---
For Patients: As a result of the Century Cures Act, medical imaging exams and procedure reports are released immediately into your electronic medical record. You may view this report before your referring provider. If you have questions, please contact your health care provider. INDICATION: Mesenteric lymphoma. TECHNIQUE: CT chest, abdomen and pelvis acquired with 80 cc Isovue 370 IV contrast. COMPARISON: CT scan of the chest, abdomen and pelvis 07/17/2024. FINDINGS: CHEST: Lower neck and chest wall: Unremarkable thyroid. No chest wall mass or axillary lymphadenopathy. Mediastinum and norberto: Unchanged enlarged calcified lymph nodes within the anterior mediastinum measuring up to 3.0 x 1.8 cm. No new mediastinal or hilar lymphadenopathy. Heart and vasculature: Unremarkable heart and thoracic aorta. Lungs: Clear. No pulmonary mass or consolidation. Pleura: Normal. No pleural mass, pleural effusion or pneumothorax. Bones: Stable bone islands within both humeral heads. Otherwise normal. ABDOMEN AND PELVIS: Liver: Normal in size and attenuation. No suspicious masses. Gallbladder and bile ducts: No stones or inflammation. No biliary dilatation. Pancreas: Unremarkable. No mass or inflammation. Spleen: Stable mild splenomegaly. No focal splenic lesion. Adrenal glands: Normal in size. No nodules. Kidneys, ureters and urinary bladder: Normal kidneys. No suspicious masses, stones, or hydronephrosis. Unremarkable urinary bladder. Reproductive: IUD within the uterus. 2 centimeter involuting left ovarian follicle. Trace fluid within the left adnexa and posterior cul-de-sac, likely physiologic. GI tract: Unremarkable. Normal in caliber. No sign of mass or inflammation. Normal appendix. Vasculature: Unremarkable. Lymph nodes: Stable postoperative changes from previous mesenteric node dissection. Two residual ileocolic lymph nodes within the right midabdomen are slightly smaller on today`s exam now measuring 10 mm and 7 mm as measured on coronal reformatted image 111, series 504. This is compared to 13 mm and 10 mm measured on coronal reformatted image 96, series 4 from the previous study. No new lymphadenopathy. Peritoneum: Trace fluid within the posterior cul-de-sac and left adnexa, likely physiologic. No free intraperitoneal air. Abdominal wall: Stable laparotomy scar. No abdominal wall hernia or mass.. Bones: Stable benign bone island within the right femoral head. No suspicious bone lesion or fracture. No acute abnormality or suspicious bony lesion. IMPRESSION: 1. No disease progression identified within the chest, abdomen or pelvis. 2. Stable calcified mediastinal lymph nodes. 3. Stable mild splenomegaly. 4. Stable postoperative changes from previous mesenteric node dissection and stable small right ileocolic lymph nodes. 5. Involuting left ovarian follicle and trace fluid within the left adnexa and cul-de-sac, likely physiologic. Please note that all CT scans at this facility use dose modulation, iterative reconstruction, and/or weight-based dosing when appropriate to reduce radiation dose to as low as reasonably achievable. Dictated by Yaniv Weaver MD @ 10/23/2024 11:32:42 AM (Electronically Signed)
--- NOTE | 2024-10-22 11:30 | CRLHL7_ITS ---
For Patients: As a result of the Century Cures Act, medical imaging exams and procedure reports are released immediately into your electronic medical record. You may view this report before your referring provider. If you have questions, please contact your health care provider. INDICATION: Lymphoma. TECHNIQUE: CT soft tissue neck with 80 cc Isovue 370 IV contrast. COMPARISON: Neck CT 07/17/2024. FINDINGS: Soft tissues: The retropharyngeal and parapharyngeal soft tissues are unremarkable. No neck mass or inflammatory abnormality is identified. The thyroid, submandibular and parotid glands are normal. Lymph nodes: No pathologically enlarged lymph nodes identified within the neck or supraclavicular fossae. Airway: The upper airway is normal. Visualized intracranial structures: Unremarkable. Orbits: Unremarkable. Bones: Normal. Upper thorax: See chest CT scan report. IMPRESSION: 1. No acute abnormality. 2. No neck mass or lymphadenopathy. Please note that all CT scans at this facility use dose modulation, iterative reconstruction, and/or weight-based dosing when appropriate to reduce radiation dose to as low as reasonably achievable. Dictated by Yaniv Weaver MD @ 10/23/2024 11:12:50 AM (Electronically Signed)
== END 2024-10-22 10:42 | disposition home or self-care (01) ==
LOC: CT 10:42
PROVIDERS: PCP Physician Assistant Medical; Visit Provider Internal Medicine Hematology & Oncology
DX: C81.12 Nodular sclerosis Hodgkin lymphoma, intrathoracic lymph nodes (principal); R16.1 Splenomegaly, not elsewhere classified; N83.02 Follicular cyst of left ovary
CPT/HCPCS: 70491; 71260; 74177; Q9967

== ENCOUNTER 2025-01-21 07:48 | Outpatient (CLI) | payer BC, SELFPAY ==
--- NOTE | 2025-01-21 08:00 | CRLHL7_ITS ---
For Patients: As a result of the Century Cures Act, medical imaging exams and procedure reports are released immediately into your electronic medical record. You may view this report before your referring provider. If you have questions, please contact your health care provider. INDICATION: History of Hodgkin`s lymphoma. Follow-up. TECHNIQUE: CT chest, abdomen, and pelvis acquired with 81 mL Isovue 370 IV contrast. COMPARISON: CT chest/abdomen/pelvis dated 10/22/2024. FINDINGS: CHEST: Lungs and pleura: No focal consolidation. Heart and vessels: No cardiomegaly, no pericardial effusion. Thyroid and lower neck: No suspicious thyroid nodule. Mediastinum/norberto: Stable partially calcified soft tissue masses in the anterior upper mediastinum, compatible with sequelae of treated lymphoma. No new lymphadenopathy. Chest wall: No axillary lymphadenopathy. ABDOMEN/PELVIS: Liver: No suspicious focal hepatic lesion. Gallbladder and bile ducts: Unremarkable. Pancreas: Unremarkable. Spleen: Unremarkable. Adrenal glands: Unremarkable. Kidneys: Kidneys enhance symmetrically, without hydronephrosis. Retroperitoneum: No lymphadenopathy. Bowel and mesentery: Bowel is not obstructed. No significant ascites, no pneumoperitoneum. Normal appendix. Stable postsurgical changes in the mesentery, with no significant change in a prominent but subcentimeter right lower quadrant lymph node (series 502, image 173). Bladder: Unremarkable for degree of distention. Reproductive organs: Intrauterine contraceptive device is noted. Pelvic lymph nodes: No lymphadenopathy. Vessels: Unremarkable. Abdominal wall: Postsurgical changes in the ventral abdominal wall. Bones: No suspicious/aggressive focal osseous lesion. IMPRESSION: Stable posttreatment changes within the mediastinum and mesentery. No new lymphadenopathy identified within the chest, abdomen, or pelvis. Please note that all CT scans at this facility use dose modulation, iterative reconstruction, and/or weight-based dosing when appropriate to reduce radiation dose to as low as reasonably achievable. Dictated by Ketty Scales MD @ 01/23/2025 7:24:25 PM (Electronically Signed)
--- NOTE | 2025-01-21 08:30 | CRLHL7_ITS ---
For Patients: As a result of the Century Cures Act, medical imaging exams and procedure reports are released immediately into your electronic medical record. You may view this report before your referring provider. If you have questions, please contact your health care provider. INDICATION: Hodgkin lymphoma, followup. COMPARISON: 10/22/2024. TECHNIQUE: CT soft tissue neck with IV contrast. Isovue 370, 81 cc IV. FINDINGS: Normal bilateral parotid and submandibular glands. Normal thyroid gland. No new enlarged cervical lymph nodes bilaterally. Largest lymph node measures 7 mm in maximal diameter at level 5 on the left (series 2, image 41) and is unchanged. No supraclavicular superior mediastinal adenopathy. Nasopharynx and oropharynx are clear. No inflammation within the paravertebral fat pads or retropharyngeal space. Normal thickness of the epiglottis. Normal glottis was symmetric vocal cords. Lung apices are clear. Normal alignment of cervical spine. No prevertebral soft tissue swelling. Visualized paranasal sinuses and mastoid air cells are clear. IMPRESSION : 1. No new adenopathy 2. Normal deep soft tissues of the neck. 3. No prevertebral soft tissue swelling Please note that all CT scans at this facility use dose modulation, iterative reconstruction, and/or weight-based dosing when appropriate to reduce radiation dose to as low as reasonably achievable. Dictated by Zain Gross MD @ 01/22/2025 9:40:17 AM (Electronically Signed)
== END 2025-01-21 07:49 | disposition home or self-care (01) ==
LOC: CT 07:50
PROVIDERS: PCP Physician Assistant Medical; Visit Provider Internal Medicine Hematology & Oncology
DX: C81.12 Nodular sclerosis Hodgkin lymphoma, intrathoracic lymph nodes (principal)
CPT/HCPCS: 70491; 71260; 74177; Q9967

== ENCOUNTER 2025-01-29 12:30 | Outpatient (RCR) | payer BC, SELFPAY ==
[2024-10-28 14:39] LABS: Hematocrit* 41.7 % (33.0-51.0); Hemoglobin* 14.0 gm/dL (12.0-16.0); Immature Granulocytes Abs Auto 0.04 K/uL (0.00-0.30); Immature Granulocytes Pct Auto 0.5 %; Mean Corpuscular HGB Conc 34 gm/dL (32-36); Mean Corpuscular Hemoglobin 32 pg (26-34); Mean Corpuscular Volume 96 fL (80-100); RDW Coefficient of Variation % 12.2 % (11.5-15.5); Red Blood Count* 4.36 m/uL (4.00-5.20); White Blood Count* 7.47 K/uL (4.50-11.00)
[2024-10-28 14:49] LABS: Lymphocytes Absolute Auto 1.20 K/uL (0.90-2.90); Slide Review Reflex No
[2024-10-28 14:51] LABS: Albumin* 4.7 g/dL (3.3-5.0); Chloride* 102 mmol/L (96-114); Potassium* 3.9 mmol/L (3.6-5.1); Sodium* 138 mmol/L (135-149)
[2024-10-28 14:54] LABS: Alanine Aminotransferase* 16 U/L (4-35); Alkaline Phosphatase* 99 U/L (40-150); Anion Gap 10 mEq/L (7-15); Aspartate Amino Transferase* 16 U/L (12-35); Bilirubin Total* 0.8 mg/dL (0.1-1.5); Blood Urea Nitrogen* 10 mg/dL (5-24); Carbon Dioxide* 26 mmol/L (20-32); Creatinine* 0.7 mg/dL (0.5-1.5); Est. Creatinine Clearance* 95.48; Estimated Glomerular Filt Rate 121 ml/min; Total Protein* 8.1 g/dL (6.0-8.3)
[2024-10-28 14:55] LABS: Calcium* 9.4 mg/dL (8.4-10.6); Glucose* 88 mg/dL (60-115)
[2024-10-28 16:45] LABS: Erythrocyte SedimentationRate* 18 mm/hr (2-20)
[2025-01-21 08:11] LABS: Hematocrit* 42.0 % (33.0-51.0); Hemoglobin* 14.1 gm/dL (12.0-16.0); Immature Granulocytes Abs Auto 0.02 K/uL (0.00-0.30); Immature Granulocytes Pct Auto 0.3 %; Mean Corpuscular HGB Conc 34 gm/dL (32-36); Mean Corpuscular Hemoglobin 32 pg (26-34); Mean Corpuscular Volume 96 fL (80-100); RDW Coefficient of Variation % 11.9 % (11.5-15.5); Red Blood Count* 4.40 m/uL (4.00-5.20); White Blood Count* 6.99 K/uL (4.50-11.00)
[2025-01-21 08:18] LABS: Lymphocytes Absolute Auto 1.30 K/uL (0.90-2.90); Slide Review Reflex No
[2025-01-21 08:23] LABS: Albumin* 4.5 g/dL (3.3-5.0); Chloride* 105 mmol/L (96-114); Potassium* 4.0 mmol/L (3.6-5.1); Sodium* 138 mmol/L (135-149)
[2025-01-21 08:26] LABS: Alanine Aminotransferase* 12 U/L (4-35); Alkaline Phosphatase* 93 U/L (40-150); Anion Gap 7 mEq/L (7-15); Aspartate Amino Transferase* 14 U/L (12-35); Bilirubin Total* 0.6 mg/dL (0.1-1.5); Blood Urea Nitrogen* 11 mg/dL (5-24); Carbon Dioxide* 26 mmol/L (20-32); Creatinine* 0.7 mg/dL (0.5-1.5); Est. Creatinine Clearance* 95.48; Estimated Glomerular Filt Rate 121 ml/min; Total Protein* 7.4 g/dL (6.0-8.3)
[2025-01-21 08:27] LABS: Calcium* 9.4 mg/dL (8.4-10.6); Glucose* 95 mg/dL (60-115)
[2025-01-21 10:12] LABS: Erythrocyte SedimentationRate* 14 mm/hr (2-20)
== END 2025-04-26 23:59 | disposition home or self-care (01) ==
LOC: CCIC 12:30
PROVIDERS: PCP Physician Assistant Medical; Referring Provider Physician Assistant Medical; Visit Provider Internal Medicine Hematology & Oncology
DX: C81.12 Nodular sclerosis Hodgkin lymphoma, intrathoracic lymph nodes (principal)
CPT/HCPCS: 36415; 70491; 71260; 74177; 80053; 83615; 85025; 85651; 99213; 99214; G0463; Q9967